=== PATIENT | male | born 1945 | race Caucasian/White ===

== ENCOUNTER → 2016-07-31 | Outpatient (CLI) | payer MEDICARE, OTHER ==
[~2016-07-31] MED LIST: ACET500T94 PO; ALB0.5V INH; ALBU0.63 IH; ALBU90AE IH; ALIR75PE SQ; ALPR.25T PO; ALPR0.254 PO; AMMO1SOL2 MC; ASPI-999 PO; BUDE6HFA IH; CETI10CA PO; CETI10TA17 PO; CHOL1CRY2 PO; CHOL4PAC2 PO; CLOP75TA69 PO; CYCL10TA9 PO; DIPH25CA6 PO; EZET10TA5 PO; FURO-125 PO; ISOS30TA3 PO; LEVA0.6320 IH; LISI-556 PO; LISI10TA PO; LISI10TA2 PO; LRT10T PO; METO100T2 PO; METO25TA2 PO; MMT17NA NS; MONT10TA24 PO; MTP50T PO; NAPR-689 PO; NCT21TD TD; NITR0.4T SL; OMEP20TA2 PO; OMEP20TA7 PO; PRD20T PO; PRD5T PO; PSYL480P PO; ROFL500T4 PO; TICA90TA PO; TIOT18CA IH; TRAM50TA2 PO; UBID30CA19 PO
--- OUTSIDE RECORDS SUMMARY | 2016-07-31 08:21 | XMS REPORT | Continuity of Care Document ---
Author Author [facility] Organization [facility] Address Unknown Phone Unavailable Care Team Providers Care Cmo Name Role Phone CAILIN EDWARDS MD PCP Insurance Providers Payer Name Policy Number Subscriber Name Relationship Wps Medicare [id number] Ximena Parra 18 Self / Same As Patient Comm Crossover Enter Ins Name [id number] Ximena Parra 18 Self / Same As Patient Advance Directives Directive Response Recorded Date/Time Advance Directives No 05/30/16 7:03am Health Care Power of Chemical Processing Supervisor No 05/30/16 7:03am Organ Donor No 05/30/16 7:03am Resuscitation Status Full Code 05/30/16 7:03am Problems Active Problems Medical Problem Onset Date Status COPD with acute exacerbation Unknown Acute Chest pain Unknown Acute Chest pain Unknown Acute Medications Current Home Medications Medication Dose Units Route Directions Days/Qty Instructions Start Date Lisinopril 10 Mg 2.5 Mg Oral Daily 08/22/12 Omeprazole 20 Mg 20 Mg Oral Twice A Day 08/22/12 Psyllium Husk 480 Gm 17.5 Gm Oral Bedtime 08/22/12 Tramadol Hcl 50 Mg 50 Mg Oral Three Times A Day as needed for Pain NEEDED FOR PAIN 08/22/12 Albuterol 2.5 Mg/0.5 Ml 2.5 Mg Inhalation Every 4HRS as needed for Shortness Of Breath NEEDED FOR SHORTNESS OF BREATH 08/27/12 Budesonide/Formoterol Fumarate 10.2 Gm 2 Puff Inhalation Twice A Day 08/27/12 Acetaminophen 500 Mg 1,000 Mg Oral Twice Daily And Prn as needed for Pain NEEDED FOR PAIN 02/24/14 Naproxen 500 Mg 500 Mg Oral Twice A Day 02/24/14 Metoprolol Tartrate (Lopressor) 100 Mg 50 Mg Oral Twice A Day TAKES 1/ 2 (100MG) TABLET 02/24/14 Alprazolam 0.25 Mg 0.25 Mg Oral Every 8HRS as needed for Anxiety 30 Aspirin 81 Mg 81 Mg Oral Daily 12/18/15 Diphenhydramine Hcl 25 Mg 25 Mg Oral Daily as needed for Itching 11/27 Montelukast Sodium 10 Mg 10 Mg Oral Bedtime 05/30/16 Cetirizine Hcl 10 Mg 10 Mg Oral Daily 05/30/16 Alirocumab 75 Mg/1 Ml 75 Mg Sub-Q Bi Weekly 05/30/16 Ticagrelor 90 Mg 90 Mg Oral Twice A Day 60 05/31/16 Isosorbide Mononitrate (Imdur) 30 Mg 30 Mg Oral Daily 30 05/31/16 Nitroglycerin 0.4 Mg 0.4 Mg Sublingual As Needed 30 05/31/16 Past Home Medications Medication Directions Ordered Status Ammonium Lactate 1 Ml Solution, 1 Ml Miscell 08/22/12 Discontinued Ezetimibe 10 Mg Tablet, 10 Mg Oral Bedtime 08/22/12 Discontinued Metoprolol Tartrate (Lopressor) 25 Mg Tablet, 1 Tab Oral Twice A Day Discontinued Tiotropium [place] 1 Inh Aerp, 0 Inhalation Daily 08/27/12 Discontinued Prednisone 5 Mg Tab, 4 Tab Oral Daily 08/27/12 Discontinued Nicotine 21 Mg Box, 21 Mg Transderm Daily 08/27/12 Discontinued Metoprolol Tartrate (Lopressor) 50 Mg Tablet, 25 Mg Oral Twice A Day Discontinued Loratadine 10 Mg Tab, 10 Mg Oral Daily as needed for Allergy 02/24/14 Discontinued Prednisone 20 Mg Tab, 20 Mg Oral Daily 02/26/14 Discontinued Cholestyramine (With Sugar) 4 Gm Powd.pack, 4 Gm Oral Daily 12/18/15 Discontinued Cholecalciferol (Vitamin D3) 1 Gm Crystals, 1 Gm Oral Daily 12/18/15 Discontinued Ubidecarenone 30 Mg Capsule, 30 Mg Oral Daily 12/18/15 Discontinued Prednisone 20 Mg Tab, 20 Mg Oral Daily 12/18/15 Discontinued Prednisone 20 Mg Tab, 40 Mg Oral Daily 12/18/15 Discontinued Social History Social History Problem Response Recorded Date/Time Alcohol Use Denies Use 12/17/2015 10:35pm Recreational Drug Use No 12/17/2015 10:35pm Recent Foreign Travel No 02/23/2014 10:10pm Recent Infectious Disease Exposure No 02/23/2014 10:10pm Hospitalization with Isolation Denies 02/26/2014 1:13pm Sexually Transmitted Disease No 12/17/2015 10:35pm HIV/AIDS No 12/17/2015 10:35pm Smoking Status Former Smoker 05/30/2016 7:03am Sexually Transmitted Disease No 12/17/2015 10:35pm Hospitalization with Isolation Denies 02/26/2014 1:13pm Query Response Start Date Stop Date Smoking Status Former Smoker Hospital Discharge Instructions Patient Instructions Physician Instructions Follow Up/Plan Appointment with Dr. Romano's office in 2-4 weeks CARDIAC CATH DISCHARGE INSTRUCTIONS *Hold Metformin for 48 hours post heart cath. ACTIVITY * Go Home directly and rest. * Limit activity of the leg (or wrist if it was used) for 7 days including aerobics, swimming, jogging, bicycling, etc. * Restrict stair-climbing for 7 days if possible, if not, climb up with your non-cath leg, then bring together on the same step. * Avoid lifting, pushing, pulling or excessive movement of the affected extremity for 7 days. * Customary sexual activity may be resumed after 2 days-use caution not to use a position that strains or causes pain to the affected extremity. * No driving for 24 hours. * NO SMOKING. * Avoid straining for bowel movements for 7 days. * Gentle walking on level ground is allowed. * Returning to work will depend on the type of procedure and the results. Your doctor will discuss this with you. CALL YOUR DOCTOR FOR ANY OF THE FOLLOWING: *If bleeding from the puncture site occurs- Apply gentle pressure to site with clean cloth and call your doctor or EMS. * If a knot or lump forms under the skin, increases in size, or causes pain. * If bruising appears to be worsening or moving further down your leg instead of disappearing. * Temperature above 101 F. CARE OF YOUR GROIN INCISION; * Bruising or purple discoloration of the skin near the puncture site is common. * You may shower only, no bathtub bathing for 5 days. Be careful to avoid slipping as your leg may feel stiff. * If a closure device was used on your femoral artery, please see the attached guide regarding care of the device and your leg. * REMOVE the dressing from your groin the next day after your procedure in the shower. CARE OF YOUR WRIST INCISION; * Bruising or purple discoloration of the skin near the puncture site is common. * You may shower. * DO NOT submerge wrist. * Remove dressing in 24 hours. Plan of Care Discharge Date 05/31/16 9:36am Instructions/Education Provided CARDIAC CATH DISCHARGE INSTRUC Prescriptions See Medication Section Functional Status Query Response Date Recorded Patient Orientation Person Place Time Situation May 31, 2016 11:02am Comprehension Ability Understands Concepts May 31, 2016 8:00am Allergies, Adverse Reactions, Alerts Allergen Type Severity Reaction Status Last Updated hydrocodone ([id number]) Adverse Reaction Unknown [place]IGHT[place]ES Active Immunizations No immunization records. Vital Signs Acute Vital Signs Vital Response Date/Time Temperature (Fahrenheit) 97.1 degrees F (97.6 - 99.5) 05/31/2016 9:38am Temperature (Calculated Celsius) 36.16843 degrees C (36.4 - 37.5) 05/31/2016 8:10am Temperature Source Tympanic 05/31/2016 9:38am Pulse Rate (adult) 78 bpm (60 - 90) 05/31/2016 9:38am Respiratory Rate 18 bpm (12 - 24) 05/31/2016 9:38am O2 Sat by Pulse Oximetry 93 % (88 - 100) 05/31/2016 9:38am Blood Pressure 146/68 mm Hg 05/31/2016 9:38am Blood Pressure Mean 94 mm Hg 05/31/2016 8:10am Pain Numeric Pain Scale 0-No Pain 05/31/2016 9:38am Height (Feet) 6 feet 05/30/2016 7:03am Height (Inches) 0.00 inches 05/30/2016 7:03am Height (Calculated Centimeters) 182.167520 cm 05/30/2016 7:03am Weight (Pounds) 238 pounds 05/30/2016 7:03am Weight (Ounces) 0.0 oz 05/30/2016 7:03am Weight (Calculated Grams) 355414.99 gm 05/30/2016 7:03am Weight (Calculated Kilograms) 107.596822 kilograms 05/30/2016 7:03am Calculated BMI 32.3 05/30/2016 7:03am Capillary Refill Capillary Refill Less Than 3 Seconds 05/30/2016 7:10pm Capillary Refill Capillary Refill Less Than 3 Seconds 05/30/2016 7:10pm Results Pending Laboratory Results Test Name Collection Date/Time Procedures Procedure Status Date Provider(s) Tracing only of electrocardiogram Completed 05/30/16 MOIZ ROMANO MD Tracing only of electrocardiogram Completed 05/30/16 MOIZ ROMANO MD Encounters Encounter Location Arrival/Admit Date Discharge/Depart Date Attending Provider Departed [facility] 05/30/16 6:43am 9:36am MOIZ ROMANO MD Registered Clinic [facility] 05/24/16 12:23pm ANDREAS TREADWELL APRN Registered Clinic [facility] 05/23/16 3:25pm ANDREAS TREADWELL APRN Registered Clinic [facility] 05/23/16 8:05am MOIZ ROMANO MD Registered Clinic [facility] 05/09/16 4:52pm CAILIN EDWARDS MD
[2016-07-31 08:56] LABS: ALBUMIN 4.2 G/DL (3.2-4.5); BILIRUBIN,DIRECT 0.1 MG/DL (0.0-0.3); BILIRUBIN,INDIRECT 0.2 MG/DL; BILIRUBIN,TOTAL 0.3 MG/DL (0.1-1.0)
--- NOTE | 2016-07-31 09:37 | Diagnostic Imaging Report ---
Ultrasound of the liver. INDICATION: Right upper quadrant pain. FINDINGS: The pancreas is largely obscured. There is a hypoechoic mass with internal vascularity seen in the central aspect of the liver anteriorly measuring 4.7 x 3.6 x 4.7 cm. There is background echogenicity of the liver parenchyma which may relate to fatty infiltration. No other masses are identified. The gallbladder demonstrates no stones or wall thickening. No pericholecystic fluid. The CBD is obscured by bowel gas. There is no obvious intrahepatic biliary dilatation. The right kidney is 11.3 cm in length with no hydronephrosis or focal lesion. No fluid collection in the upper right abdomen. IMPRESSION: Suspicious 4.7-cm solid mass in the liver. Particularly in the presence of history of hepatitis or cirrhosis, this would be suspicious for hepatocellular carcinoma. Better evaluation with CT scan or MRI of the abdomen, liver mass protocol, is recommended. Report was stat faxed to office of Dr. Lane @ 9:31 AM/zara. Dictated by: Dictated on workstation # [id number]
== END ==
LOC: RAD 08:16
PROVIDERS: ATTEND Internal Medicine Critical Care Medicine
DX: E78.2 Mixed hyperlipidemia (principal); R16.0 Hepatomegaly, not elsewhere classified
CPT/HCPCS: 36415; 76705; 80061; 80076

== ENCOUNTER 2016-08-19 18:05 | Inpatient (IN) | payer MEDICARE, OTHER ==
[~2016-08-19] VITALS: Ht 182.9 cm; Wt 106.8 kg
[~2016-08-19 18:05] MED LIST changes: -ALBU0.63 IH; -ALBU90AE IH; -ALPR0.254 PO; -CETI10TA17 PO; -CLOP75TA69 PO; -CYCL10TA9 PO; -FURO-125 PO; -LEVA0.6320 IH; -LISI-556 PO; -LISI10TA2 PO; -MMT17NA NS; -OMEP20TA7 PO; -ROFL500T4 PO
--- OUTSIDE RECORDS SUMMARY | 2016-08-19 18:13 | XMS REPORT | Continuity of Care Document ---
Author Author [facility] Organization [facility] Address Unknown Phone Unavailable Care Team Providers Care Supervisor [employer] Name Role Phone CAILIN EDWARDS MD PCP Insurance Providers Payer Name Policy Number Subscriber Name Relationship Wps Medicare [id number] Ximena Parra 18 Self / Same As Patient Comm Crossover Enter Ins Name [id number] Ximena Parra 17 Self / Same As Patient Advance Directives Directive Response Recorded Date/Time Advance Directives No 05/30/16 7:03am Health Care Power of Inventory Controller No 05/30/16 7:03am Organ Donor No 05/30/16 [...] Tab Oral Twice A Day Discontinued Tiotropium [place] 1 Inh Aerp, 0 Inhalation Daily 08/27/12 [...] Type Severity Reaction Status Last Updated hydrocodone ([id number]) Adverse Reaction Unknown [place] Active Immunizations No immunization records. Vital Signs Acute Vital Signs Vital Response Date/Time Temperature (Fahrenheit) 97.1 degrees F (97.6 - 99.5) 05/31/2016 9:38am Temperature (Calculated Celsius) 36.65423 degrees C (36.4 - 37.5) 05/31/2016 8:10am [...] 0.00 inches 05/30/2016 7:03am Height (Calculated Centimeters) 182.207504 cm 05/30/2016 7:03am Weight (Pounds) 238 pounds 05/30/2016 7:03am Weight (Ounces) 0.0 oz 05/30/2016 7:03am Weight (Calculated Grams) 594332.99 gm 05/30/2016 7:03am Weight (Calculated Kilograms) 107.436894 kilograms 05/30/2016 7:03am Calculated BMI 32.3 05/30/2016 [...] Attending Provider Departed [facility] 05/30/16 6:43am 9:36am MOIZ ROMANO MD Registered Clinic [facility] 05/24/16 12:23pm ANDREAS TREADWELL APRN Registered Clinic [facility] 05/23/16 3:25pm ANDREAS TREADWELL APRN Registered Clinic [facility] 05/23/16 8:05am MOIZ ROMANO MD Registered Clinic [facility] 05/09/16 4:52pm CAILIN EDWARDS MD
[2016-08-19 18:52] LABS: BASOPHILS % (AUTO) 0 % (0-10); EOSINOPHILS % (AUTO) 0 % (0-10); LYMPHOCYTES # (AUTO) 1.7 X 10^3 (1.0-4.0); LYMPHOCYTES % (AUTO) 18 % (12-44); MEAN CORPUSCULAR HEMOGLOBIN 31 PG (25-34); MEAN CORPUSCULAR HGB CONC 34 G/DL (32-36); MEAN CORPUSCULAR VOLUME 91 FL (80-99); MEAN PLATELET VOLUME 9.8 FL (7.4-10.4); MONOCYTES # (AUTO) 0.6 X 10^3 (0.0-1.0); MONOCYTES % (AUTO) 6 % (0-12); NEUTROPHILS # (AUTO) 7.4 X 10^3 (1.8-7.8); NEUTROPHILS % (AUTO) 76 % (42-75); PLATELET COUNT 242 10^3/uL (130-400); RED BLOOD COUNT 4.98 10^6/uL (4.35-5.85); RED CELL DISTRIBUTION WIDTH 13.7 % (10.0-14.5); WHITE BLOOD COUNT 9.8 10^3/uL (4.3-11.0)
[2016-08-19] MEDS ORDERED: methylPREDNISolone 125 MG (Solu-MEDROL) VIAL IVP ONE (19:00)
--- NOTE | 2016-08-19 19:04 | Diagnostic Imaging Report ---
INDICATION: COPD, shortness of air for 2 months COMPARISON STUDY: Chest from May the . FINDINGS: Frontal and lateral views of the chest demonstrate stable COPD changes. Previous sternotomy changes are present. The heart size and vascularity are normal. There are no pleural effusions. IMPRESSION: Stable COPD. Dictated by: Dictated on workstation # [id number]
[2016-08-19 19:14] LABS: ALANINE AMINOTRANSFERASE 28 U/L (0-55); ALBUMIN 4.1 G/DL (3.2-4.5); ANION GAP 11 MMOL/L (5-14); ASPARTATE AMINO TRANSFERASE 18 U/L (5-34); BILIRUBIN,TOTAL 0.3 MG/DL (0.1-1.0); BLOOD UREA NITROGEN 16 MG/DL (7-18); BUN/CREATININE RATIO 16; CALCIUM 9.4 MG/DL (8.5-10.1); CARBON DIOXIDE 19 MMOL/L (21-32); CHLORIDE 107 MMOL/L (98-107); CREATININE SERUM 0.97 MG/DL (0.60-1.30); GFR ESTIMATED > 60; GLUCOSE 148 MG/DL (70-105); POTASSIUM 4.3 MMOL/L (3.6-5.0); SODIUM 137 MMOL/L (135-145)
[2016-08-19 19:20] LABS: TROPONIN I < 0.30 NG/ML (<0.30)
--- NOTE | 2016-08-19 19:23 | ED Respiratory ---
General Chief Complaint: Respiratory Problems Stated Complaint: SOA Source: patient History of Present Illness Time seen by provider: 18:20 Initial Comments PT ARRIVES VIA POV STATES HE 'HASN'T FELT GOOD FOR A MONTH" BUT IS NOT SPECIFIC ON HOW HE HAS FELT BAD FOR THE LAST FEW DAYS, HE HAS HAD A NON-PRODUCTIVE COUGH, SWEATS/CHILLS, HEADACHE, BODY ACHES, SHORTNESS OF BREATH NO CHEST PAIN, BUT HAS HAD MID/UPPER BACK PAIN AND TIGHTNESS NO INCREASE IN PAIN WITH ACTIVITY OR BREATHING NO SWELLING ANYWHERE STATES HE HAS COPD BUT HAS NOT USED NEBULIZER IN OVER 2 WEEKS--STATES "IT NEVER HELPS AND IT JUST MAKES ME SHAKEY" ALSO HAS HISTORY OF CAD/DC WITH 3 VESSEL CABG IN 1996, AND STENT PLACED "A MONTH AGO" BY DR. MORALES--ACTUALLY 05/30/16, AND HAD PREVIOUS STENT PLACED WELL SEEN BY DR. EDWARDS A COUPLE OF WEEKS AGO--IS UNCLEAR IF VISIT WAS FOR THESE SYMPTOMS, BUT STATES HE WAS GIVEN RX FOR PREDNISONE, BUT PT ONLY TOOK 1 PILL WAS MAGALY AGAIN Saturday08/16/16 FOR ROUTINE EXAM--STATES HE DISCUSSED THIS, BUT NO TESTS OR RX GIVEN. NO SICK CONTACTS PCP: DR. EDWARDS PHOTO FINISHER: DR. MORALES PULMONOLOGY: DR. GALVIN Allergies and Home Medications Allergies Coded Allergies: hydrocodone (Unverified Adverse Reaction, Unknown, NIGHTMARES, 12/17/15) Home Medications Acetaminophen 500 Mg Tablet 1,000 MG PO BID PRN PRN PRN PAIN (Reported) NEEDED FOR PAIN Albuterol Sulfate 0.63 Mg/3 Ml Vial.neb 0.63 MG IH (Reported) Albuterol Sulfate 90 Mcg Aer.pow.ba 1-2 PUFF IH (Reported) Alirocumab 75 Mg/1 Ml Pen.injctr 75 MG SQ BI WEEKLY (Reported) Alprazolam 0.25 Mg Tab #30 0.25 MG PO Q8H PRN PRN anxiety Prescribed by: CAILIN EDWARDS on 02/26/14 0804 Aspirin 81 Mg Tab.chew 81 MG PO DAILY (Reported) Budesonide/Formoterol Fumarate 10.2 Gm Hfa.aer.ad 2 PUFF IH BID (Reported) Clopidogrel Bisulfate 75 Mg Tablet 75 MG PO DAILY (Reported) Cyclobenzaprine HCl 10 Mg Tablet 10 MG PO TID (Reported) Furosemide 20 Mg Tablet 20 MG PO PRN EDEMA (Reported) Isosorbide Mononitrate 30 Mg Tab.er.24h #30 30 MG PO DAILY Prescribed by: MOIZ MORALES on 05/31/16 0836 Levalbuterol HCl 0.63 Mg/3 Ml Vial.neb 0.63 MG IH (Reported) Lisinopril 10 Mg Tablet 5 MG PO DAILY (Reported) Metoprolol Tartrate 100 Mg Tablet 50 MG PO BID (Reported) TAKES 1/2 (100MG) TABLET Mometasone Furoate 17 Gm Naspr 50 MCG NS (Reported) Montelukast Sodium 10 Mg Tablet 10 MG PO HS (Reported) Naproxen 500 Mg Tablet 500 MG PO BID (Reported) Nitroglycerin 0.4 Mg Tab.subl #30 0.4 MG SL PRN Prescribed by: MOIZ MORALES on 05/31/16 0836 Omeprazole 20 Mg Tablet.dr 40 MG PO BID (Reported) Roflumilast 500 Mcg Tablet 500 MCG PO DAILY (Reported) Tramadol Hcl 50 Mg Tablet 50 MG PO TID PRN PRN PAIN (Reported) NEEDED FOR PAIN Constitutional: see HPI chills fever malaise weakness EENTM: no symptoms reported Respiratory: see HPI cough dyspnea on exertion short of breath Cardiovascular: No chest pain, No edema, No palpitations, No syncope, vascular heart diseas Gastrointestinal: no symptoms reportedNo abdominal pain, No diarrhea, No nausea, No vomiting Genitourinary: no symptoms reported Musculoskeletal: see HPI back pain other (BODY ACHES) Skin: no symptoms reported Psychiatric/Neurological: See HPI HeadacheDenies Numbness, Denies Paresthesia , Denies Seizure, Denies Tingling, Denies Tremors, Denies Weakness Hematologic/Lymphatic: No Symptoms Reported Immunological/Allergic: no symptoms reported Past [id number]-Fkabkz-Jrnppb Hx Patient Social History Alcohol Use: Denies Use Recreational Drug Use: No Smoking Status: Former Smoker (1 PPD, QUIT 12/2015) Recent Hopitalizations: No Immunizations Up To Date Tetanus Booster (TDap): Less than 5yrs Date of Pneumonia Vaccine: Apr 14, 2014 Date of Influenza Vaccine: Mar 20, 2016 Seasonal Allergies Seasonal Allergies: No Surgeries HX Surgeries: Yes (RIGHT ANKLE FX/ ORIF; CARDIAC CATH-STENT X 2--LAST ONE 2015 ; 3 VESSEL CABG 1997 PER PT ON 08/19/16 ( OLD RECORDS REPORT 1991) ; ZENKER 'S DIVERTICULUM REMOVED 11/2015) Surgeries: Abdominal, Cardiac, CABG, Coronary Stent, Orthopedic Respiratory Hx Respiratory Disorders: Yes Respiratory Disorders: COPD Cardiovascular Hx Cardiac Disorders: Yes (DC 1996--3 VESSEL CABG; STENTS X 2) Cardiac Disorders: Coronary Artery Disease, Heart Attack, High Cholesterol, Hypertension Neurological Hx Neurological Disorders: No Reproductive System Hx Reproductive Disorders: No Sexually Transmitted Disease: No HIV/AIDS: No Genitourinary Hx Genitourinary Disorders: No Gastrointestinal Hx Gastrointestinal Disorders: Yes (ZENKER'S DIVERTICULUM REMOVED 11/2015) Gastrointestinal Disorders: Diverticulosis Musculoskeletal Hx Musculoskeletal Disorders: Yes (RIGHT ANKLE FX/ORIF) Endocrine Hx Endocrine Disorders: No HEENT HX ENT Disorders: No HEENT Disorders: Cataract Loss of Vision: Denies Hearing Impairment: Denies Cancer Hx Cancer: No Cancer: Skin Psychosocial Hx Psychiatric Problems: No Integumentary HX Skin/Integumentary Disorder: No Blood Transfusions Hx Blood Disorders: No Adverse Reaction to a Blood Tr: No Family Medical History Family Medial History: Diabetes mellitus 19 MOTHER FH: heart disease 19 FATHER 19 MOTHER G8 SISTER FH: inflammatory bowel disease G8 SISTER Physical Exam Vital Signs Vital Sign - Last 12Hours 08/19/16 19:25 O2 Flow Rate 2 Capillary Refill : General Appearance: WD/WN other (LOOKS UNCOMFORTABLE) HEENT: PERRL/EOMI normal ENT inspection TMs normal pharynx normal Neck: non-tender full range of motion supple normal inspectionNo carotid bruit Respiratory: chest non-tender no respiratory distress no accessory muscle use decreased breath sounds (IN ALL LUNG LONG) Cardiovascular: normal peripheral pulses regular rate, rhythm no edema no JVD no murmur Gastrointestinal: normal bowel sounds non tender soft no organomegaly Extremities: normal range of motion non-tender normal inspection no pedal edema no calf tenderness normal capillary refill Neurologic/Psychiatric: director of planning II-XII nml as tested no motor/sensory deficits alert oriented x 3 Skin: normal color warm/dry Progress/Results/Core Measures Results/Orders Lab Results Laboratory Tests Test 08/19/16 18:35 08/19/16 20:27 Range/Units Alanine Aminotransferase (ALT/SGPT) 28 0-55 U/L Albumin 4.1 3.2-4.5 G/DL Alkaline Phosphatase 79 40-136 U/L Anion Gap 11 5-14 MMOL/L Aspartate Amino Transf (AST/SGOT) 18 5-34 U/L B-Type Natriuretic Peptide < 10.0 <100.0 PG/ML BUN/Creatinine Ratio 16 Basophils # (Auto) 0.0 0.0-0.1 10^3/uL Basophils (%) (Auto) 0 0-10 % Blood Urea Nitrogen 16 7-18 MG/DL Calcium Level 9.4 8.5-10.1 MG/DL Carbon Dioxide Level 19 L 21-32 MMOL/L Chloride Level 107 98-107 MMOL/L Creatinine 0.97 0.60-1.30 MG/DL Eosinophils # (Auto) 0.0 0.0-0.3 10^3/uL Eosinophils (%) (Auto) 0 0-10 % Estimat Glomerular Filtration Rate > 60 Glucose Level 148 H 70-105 MG/DL Hematocrit 45 40-54 % Hemoglobin 15.3 13.3-17.7 G/DL Lymphocytes # (Auto) 1.7 1.0-4.0 X 10^3 Lymphocytes (%) (Auto) 18 12-44 % Mean Corpuscular Hemoglobin 31 25-34 PG Mean Corpuscular Hemoglobin Concent 34 32-36 G/DL Mean Corpuscular Volume 91 80-99 FL Mean Platelet Volume 9.8 7.4-10.4 FL Monocytes # (Auto) 0.6 0.0-1.0 X 10^3 Monocytes (%) (Auto) 6 0-12 % Neutrophils # (Auto) 7.4 1.8-7.8 X 10^3 Neutrophils (%) (Auto) 76 H 42-75 % Platelet Count 242 130-400 10^3/uL Potassium Level 4.3 3.6-5.0 MMOL/L Red Blood Count 4.98 4.35-5.85 10^6/uL Red Cell Distribution Width 13.7 10.0-14.5 % Sodium Level 137 135-145 MMOL/L Total Bilirubin 0.3 0.1-1.0 MG/DL Total Protein 7.0 6.4-8.2 G/DL Troponin I < 0.30 < 0.30 <0.30 NG/ML White Blood Count 9.8 4.3-11.0 10^3/uL Micro Results Microbiology 08/19/16 Influenza Types A,B Antigen (JASON) - Final, Complete My Orders Orders-TOM,AMANDA K DO Saline Lock/Iv-Start (08/19/16 18:26) Ekg Tracing (08/19/16 18:26) O2 (08/19/16 18:) Monitor-Rhythm Ecg Trace Only (08/19/16 18:26) BNP (08/19/16 18:26) Cbc With Automated Diff (08/19/16 18:) Comprehensive Metabolic Panel (08/19/16 18:) Troponin I (08/19/16 18:) Blood Culture (08/19/16 18:) Influenza A And B Antigens (08/19/16 18:26) Chest Pa/Lat (2 View) (08/19/16 18:26) Methylprednisolone Sod Succ (Solu-Medrol (08/19/16 19:00) Albuterol/Ipra Inhalation Soln (Duoneb I (08/19/16 19:30) Dexamethasone Injection (Decadron Inject (08/19/16 19:30) Rt Request For Service (08/19/16 19:22) Svn Sm Volume Nebulizer Rt-Rfs (08/19/16 19:22) Ct Angio Chest W (08/19/16 19:24) Iohexol Injection (Omnipaque 350 Mg/Ml 1 (08/19/16 19:45) Ns (Ivpb) (Sodium Chloride 0.9% Ivpb Bag (08/19/16 19:45) Lorazepam Injection (Ativan Injection) (08/19/16 20:30) Ekg Tracing (08/19/16 20:26) Troponin I (08/19/16 20:26) Morphine Injection (Morphine Injection (08/19/16 20:26) Morphine Injection (Morphine Injection (08/19/16 20:26) Lorazepam Injection (Ativan Injection) (08/19/16 20:26) Furosemide Injection (Lasix Injection) (08/19/16 20:45) Enoxaparin Injection (Lovenox Injection) (08/19/16 20:45) Metoprolol Succinate (Xl) Tab (Toprol Xl (08/19/16 20:45) Aspirin Chewable Tablet (Baby Aspirin Ch (08/19/16 20:45) Medications Given in ED Current Medications Medications Dose Ordered Sig/Laney Route Start Time Stop Time Status Last Admin Dose Admin Albuterol/ Ipratropium 3 ml ONCE ONCE INH 08/19/16 19:30 08/19/16 19:31 DC 08/19/16 19:32 3 ML Aspirin 324 mg ONCE ONCE PO 08/19/16 20:45 08/19/16 20:46 DC 08/19/16 20:50 324 MG Dexamethasone Sodium Phosphate 20 mg ONCE ONCE IH 08/19/16 19:30 08/19/16 19:31 DC 08/19/16 19:32 20 MG Enoxaparin Sodium 120 mg ONCE ONCE SC 08/19/16 20:45 08/19/16 20:46 DC 08/19/16 20:50 120 MG Furosemide 80 mg ONCE ONCE IVP 08/19/16 20:45 08/19/16 20:46 DC 08/19/16 20:50 80 MG Iohexol 150 ml ONCE ONCE IV 08/19/16 19:45 08/19/16 22:53 DC 08/19/16 20:15 145 ML Lorazepam 2 mg ONCE ONCE IVP 08/19/16 20:30 08/19/16 20:31 DC 08/19/16 20:29 2 MG Methylprednisolone Sodium Succinate 125 mg ONCE ONCE IVP 08/19/16 19:00 08/19/16 19:01 DC 08/19/16 19:05 125 MG Metoprolol Succinate 100 mg ONCE ONCE PO 08/19/16 20:45 08/19/16 20:46 DC 08/19/16 20:53 100 MG Sodium Chloride 100 ml ONCE ONCE IV 08/19/16 19:45 08/19/16 22:53 DC 08/19/16 20:15 80 ML Vital Signs/I&O Vital Sign - Last 12Hours 08/19/16 08/19/16 08/19/16 08/19/16 18:06 18:06 19:25 19:32 Temp 98.0 Pulse 97 87 Resp 20 26 B/P 119/70 152/81 Pulse Ox 94 96 96 96 O2 Delivery Room Air Room Air Nasal Cannula O2 Flow Rate 2 2 08/19/16 20:30 Temp 98.0 Progress Note : Progress Note O2 SATS 92-93% ON ROOM AIR--PLACED ON O2 WITH IMPROVEMENT OF SATS UP TO 98% AND PT STATES HE FEELS LESS SHORT OF BREATH 2020--ON RETURN FROM CT, PT NOW C/O SEVERE MID CHEST PAIN--BEGAN WHILE IN CT ( HAS HAD IV DYE MULTIPLE TIMES AND NOT HAD ANY PROBLEMS ) ALSO C/O WORSENED SHORTNESS OF BREATH PT IS DYSPNEIC, ANXIOUS, CLUTCHING HIS CHEST HEART--TACHYCARDIA IN 120'S, BP ELEVATED TO 211 SYSTOLIC LUNGS -DIMINISHED IN ALL LUNG LONG REPEAT EKG NOW SHOWS ST DEPRESSION IN ANTERIOR AND LATERAL LEADS REPEAT TROPONIN DRAWN PT GIVEN ATIVAN AND MORPHINE WITH RELIEF OF SYMPTOMS AND IMPROVEMENT IN VITALS NO FURTHER DETERIORATION IN PT'S CONDITION DURING ER STAY ECG Initial ECG Impression Time: 18:21 Initial ECG Rate: 81 Initial ECG Rhythm: Normal Sinus (RBB/LPFB) Initial ECG Comparisson: Unchanged EKG : EKG Time: 20:25 Rate: 116 Rhythm: S.Tach (WITH ST DEPRESSION ANTERIOR AND LATERALLY) Diagnostic Imaging Comments CXR--STABLE COPD, NO ACUTE PROCESS, PER RADIOLOGIST REPORT @ 1923 Reviewed: Reviewed by Me Departure Communication Progress Notes --PAGED/SPOKE WITH DR. LUX, ORDERS FOR LASIX, LOVENOX, TOPROL NOTED. HE ACCEPTS PT FOR ADMIT 2049--SPOKE WITH DR. CASAREZ, HOSPITALIST FOR MEDICAL CONSULT. Impression Impression: Primary Impression: Chest pain Additional Impressions: Acute electrocardiogram changes HTN (hypertension) Sinus tachycardia COPD Disposition: ADMITTED INPATIENT Condition: Improved Decision to Admit Reason: Admit from ER (General) Decision to Admit/Date: Aug 19, 2016 Time/Decision to Admit Time: 20:35 Departure-Patient Inst. Referrals: CAILIN EDWARDS MD (PCP/Family) Primary Care Physician AMANDA SANTOS DO Aug 19, 2016 19:23
[2016-08-19 19:25] VITALS: BP 152/81
[2016-08-19] MEDS ORDERED: DEXAMETHASONE 4 MG/ML SDV (DECADRON) IH ONE (19:30)
[2016-08-19] MEDS ORDERED: RT-ALBUTEROL/IPRATROPIUM 3 ML (DUONEB) VIAL INH ONE (19:30)
[2016-08-19] MEDS ORDERED: NS 100 ML (IVPB) BAG IV ONE (19:45)
[2016-08-19] MEDS ORDERED: IOHEXOL 350 MG/ML 150 ML (OMNIPAQUE 350) VIAL IV ONE (19:45)
[2016-08-19] MEDS ORDERED: morphine INJ 10 MG/ML 1ML (SYR OR VIAL) ONE (20:26)
[2016-08-19] MEDS ORDERED: morphine INJ 10 MG/ML 1ML (SYR OR VIAL) IVP STA (20:26)
[2016-08-19] MEDS ORDERED: LORazepam INJ 2 MG/ML (ATIVAN) VIAL ONE (20:26)
[2016-08-19] MEDS ORDERED: LORazepam INJ 2 MG/ML (ATIVAN) VIAL IVP ONE (20:30)
--- NOTE | 2016-08-19 20:38 | Diagnostic Imaging Report ---
INDICATION: Shortness of air, congestion and headaches. CONTRAST: 145 mL of Omnipaque 350 was given intravenously. COMPARISON STUDY: Noncontrast CT scan of the chest from 05/24/16. FINDINGS: Emphysematous changes are again seen in the chest. There are no focal infiltrates. The heart size is normal. Arteriosclerosis is present with calcification of the coronary arteries. No pleural or pericardial effusions are seen. There is a mass in the right lobe of the liver. This has contrast enhancement and a central scar. This is most likely benign. An MRI scan with and without contrast would be helpful for further evaluation. Fatty infiltration of the liver is present. IMPRESSION: 1. Stable COPD. 2. There is a mass in the liver, most likely benign. Recommend an MRI of the abdomen with and without contrast. 3. No pulmonary emboli, aortic dissection or aneurysm is present. Coronary artery calcifications are present. Dictated by: Dictated on workstation # [id number]
[2016-08-19] MEDS ORDERED: ENOXAPARIN 60 MG/0.6 ML (LOVENOX) SYR SC ONE (20:45)
[2016-08-19] MEDS ORDERED: FUROSEMIDE 40 MG/4 ML INJ (LASIX) IVP ONE (20:45)
[2016-08-19] MEDS ORDERED: meTOprolol SUCCINATE 100 MG (TOPROL XL) TAB PO ONE (20:45)
[2016-08-19] MEDS ORDERED: ASPIRIN 81 MG CHEW (CHILDREN'S ASA) PO ONE (20:45)
[2016-08-19 22:45] VITALS: BP 119/73
[2016-08-19 23:00] VITALS: BP 122/69
[2016-08-19] MEDS ORDERED: CATHETER FLUSH 10 ML SYR IV PRN (23:00)
[2016-08-19] MEDS ORDERED: NITROGLYCERIN 2% OINT 1 GM UNIT DOSE PACKET TOP PRN (23:00)
[2016-08-19] MEDS ORDERED: NITROGLYCERIN SUBLINGUAL 0.4 MG TAB (NITROSTAT) SL PRN (23:00)
[2016-08-19] MEDS ORDERED: morphine INJ 10 MG/ML 1ML (SYR OR VIAL) IV PRN (23:00)
[2016-08-19 23:15] VITALS: BP 116/65
[2016-08-19 23:30] VITALS: BP 104/58
[2016-08-19 23:53] LABS: BILIRUBIN,URINE NEGATIVE (NEGATIVE); KETONES,URINE NEGATIVE (NEGATIVE); LEUKOCYTE ESTERASE ,URINE NEGATIVE (NEGATIVE); NITRITE,URINE NEGATIVE (NEGATIVE); PH,URINE 5 (5-9); PROTEIN,URINE NEGATIVE (NEGATIVE); UROBILINOGEN,URINE NORMAL (NORMAL)
[2016-08-20] VITALS (25 sets, daily range): BP systolic 95–169; BP diastolic 45–98
[2016-08-20 00:03] LABS: HYALINE CASTS, URINE RARE /LPF; SQUAMOUS EPITHELIAL CELL,UR RARE /HPF
[2016-08-20] MEDS ORDERED: LEVA0.6320 IH (01:58)
[2016-08-20] MEDS ORDERED: OMEP20TA7 PO (01:58)
[2016-08-20] MEDS ORDERED: CYCL10TA9 PO (01:58)
[2016-08-20] MEDS ORDERED: MMT17NA NS (01:58)
[2016-08-20] MEDS ORDERED: FURO-125 PO (01:58)
[2016-08-20] MEDS ORDERED: CLOP75TA69 PO (01:58)
[2016-08-20] MEDS ORDERED: ALBU90AE IH (01:58)
[2016-08-20] MEDS ORDERED: LISI10TA2 PO (01:58)
[2016-08-20] MEDS ORDERED: ALBU0.63 IH (01:58)
[2016-08-20] MEDS ORDERED: ROFL500T4 PO (01:58)
[2016-08-20 02:37] LABS: INR 1.2 (0.8-1.4); PROTHROMBIN TIME PATIENT 14.5 SEC (12.2-14.7)
[2016-08-20 02:39] LABS: MYOGLOBIN SERUM 51.7 NG/ML (10.0-92.0); TROPONIN I < 0.30 NG/ML (<0.30)
[2016-08-20 04:25] LABS: BASOPHILS % (AUTO) 0 % (0-10); EOSINOPHILS % (AUTO) 0 % (0-10); LYMPHOCYTES # (AUTO) 1.4 X 10^3 (1.0-4.0); LYMPHOCYTES % (AUTO) 10 % (12-44); MEAN CORPUSCULAR HEMOGLOBIN 31 PG (25-34); MEAN CORPUSCULAR HGB CONC 34 G/DL (32-36); MEAN CORPUSCULAR VOLUME 90 FL (80-99); MEAN PLATELET VOLUME 9.8 FL (7.4-10.4); MONOCYTES # (AUTO) 0.1 X 10^3 (0.0-1.0); MONOCYTES % (AUTO) 1 % (0-12); NEUTROPHILS # (AUTO) 11.5 X 10^3 (1.8-7.8); NEUTROPHILS % (AUTO) 89 % (42-75); PLATELET COUNT 245 10^3/uL (130-400); RED BLOOD COUNT 4.99 10^6/uL (4.35-5.85); RED CELL DISTRIBUTION WIDTH 13.8 % (10.0-14.5)
[2016-08-20 04:41] LABS: ALANINE AMINOTRANSFERASE 26 U/L (0-55); ANION GAP 13 MMOL/L (5-14); ASPARTATE AMINO TRANSFERASE 16 U/L (5-34); BILIRUBIN,TOTAL 0.3 MG/DL (0.1-1.0); BLOOD UREA NITROGEN 18 MG/DL (7-18); BUN/CREATININE RATIO 17; CALCIUM 9.4 MG/DL (8.5-10.1); CARBON DIOXIDE 21 MMOL/L (21-32); CHLORIDE 103 MMOL/L (98-107); CHOLESTEROL 176 MG/DL (< 200); CREATININE SERUM 1.03 MG/DL (0.60-1.30); DIRECT LDL 117 MG/DL (1-129); GFR ESTIMATED > 60; GLUCOSE 147 MG/DL (70-105); MAGNESIUM 2.2 MG/DL (1.8-2.4); PHOSPHORUS 3.6 MG/DL (2.3-4.7); POTASSIUM 4.5 MMOL/L (3.6-5.0); SODIUM 137 MMOL/L (135-145); TRIGLYCERIDES 81 MG/DL (<150); VLDL CHOLESTEROL 16 MG/DL (5-40)
[2016-08-20 05:06] LABS: BAND NEUTROPHILS 2 %; BASOPHILS % (MANUAL) 0 %; EOSINOPHILS % (MANUAL) 0 %; LYMPHOCYTES % (MANUAL) 6 %; NEUTROPHILS % (MANUAL) 80 %; REACTIVE LYMPHOCYTES 10 %
[2016-08-20] MEDS ORDERED: MAGNESIUM 1 GM/100 ML IVPB 100 ML IV SCH (06:00)
[2016-08-20] MEDS ORDERED: KCL 20 MEQ TAB (K-DUR) PO SCH (06:00)
[2016-08-20] MEDS ORDERED: POTASSIUM CL 10MEQ/50ML IVPB 50 ML IV SCH (06:00)
[2016-08-20] MEDS: CATHETER FLUSH 10 ML SYR IV SCH ×3 (06:30→21:56)
--- NOTE | 2016-08-20 06:53 | Pulmonary Consultation ---
History of Present Illness History of Present Illness Date of Consultation 08/20/16 06:47 Date of Admission History of Present Illness 70yo with hx of COPD and MICAELA presented to ED secondary to worsening SOB and nonproductive cough. Pt states he has had pain that radiates from lower chest around to back. PT has required oxygen since admission. He was evaluated for oxygen as out patient a few weeks ago in my office and did not qualify. Pt was give a rx for prednisone in Dr. Mari office 2 wks ago however he only took one pill. PT was admitted after returning from CT scan and started having severe CP and anxiety. I am consulted for ICU management. Allergies and Home Medications Allergies Coded Allergies: hydrocodone (Unverified Adverse Reaction, Unknown, NIGHTMARES, 12/17/15) Home Medications Acetaminophen 500 Mg Tablet 1,000 MG PO BID PRN PRN PRN PAIN (Reported) NEEDED FOR PAIN Albuterol Sulfate 0.63 Mg/3 Ml Vial.neb 0.63 MG IH (Reported) Albuterol Sulfate 90 Mcg Aer.pow.ba 1-2 PUFF IH (Reported) Alirocumab 75 Mg/1 Ml Pen.injctr 75 MG SQ BI WEEKLY (Reported) Alprazolam 0.25 Mg Tab #30 0.25 MG PO Q8H PRN PRN anxiety Prescribed by: CAILIN EDWARDS on 02/26/14 0804 Aspirin 81 Mg Tab.chew 81 MG PO DAILY (Reported) Budesonide/Formoterol Fumarate 10.2 Gm Hfa.aer.ad 2 PUFF IH BID (Reported) Clopidogrel Bisulfate 75 Mg Tablet 75 MG PO DAILY (Reported) Cyclobenzaprine HCl 10 Mg Tablet 10 MG PO TID (Reported) Furosemide 20 Mg Tablet 20 MG PO PRN EDEMA (Reported) Isosorbide Mononitrate 30 Mg Tab.er.24h #30 30 MG PO DAILY Prescribed by: MOIZ MORALES on 05/31/16 0836 Levalbuterol HCl 0.63 Mg/3 Ml Vial.neb 0.63 MG IH (Reported) Lisinopril 10 Mg Tablet 5 MG PO DAILY (Reported) Metoprolol Tartrate 100 Mg Tablet 50 MG PO BID (Reported) TAKES 1/2 (100MG) TABLET Mometasone Furoate 17 Gm Naspr 50 MCG NS (Reported) Montelukast Sodium 10 Mg Tablet 10 MG PO HS (Reported) Naproxen 500 Mg Tablet 500 MG PO BID (Reported) Nitroglycerin 0.4 Mg Tab.subl #30 0.4 MG SL PRN Prescribed by: MOIZ MORALES on 05/31/16 0836 Omeprazole 20 Mg Tablet.dr 40 MG PO BID (Reported) Roflumilast 500 Mcg Tablet 500 MCG PO DAILY (Reported) Tramadol Hcl 50 Mg Tablet 50 MG PO TID PRN PRN PAIN (Reported) NEEDED FOR PAIN Past Yjyrxfk-Ieuatr-Otukvf Hx Patient Social History Alcohol Use: Denies Use Recreational Drug Use: No Smoking Status: Former Smoker (1 PPD, QUIT 12/2015) Recent Foreign Travel: No Contact w/Someone Who Travel: No Recent Infectious Disease Expo: No Recent Hopitalizations: No Physical Abuse Screen: No Sexual Abuse: No Immunizations Up To Date Tetanus Booster (TDap): Less than 5yrs PED Vaccines UTD: No Date of Pneumonia Vaccine: Apr 14, 2014 Date of Influenza Vaccine: Mar 20, 2016 Seasonal Allergies Seasonal Allergies: No Surgeries HX Surgeries: Yes (RIGHT ANKLE FX/ ORIF; CARDIAC CATH-STENT X 2--LAST ONE 2015 ; 3 VESSEL CABG 1996 PER PT ON 08/19/16 ( OLD RECORDS REPORT 1991) ; ZENKER 'S DIVERTICULUM REMOVED 11/2015) Surgeries: Abdominal, Cardiac, CABG, Coronary Stent, Orthopedic Respiratory Hx Respiratory Disorders: Yes Respiratory Disorders: Asthma, Sleep Apnea, COPD Cardiovascular Hx Cardiac Disorders: Yes (ME 1996--3 VESSEL CABG; STENTS X 2) Cardiac Disorders: Coronary Artery Disease, Heart Attack, High Cholesterol, Hypertension Neurological Hx Neurological Disorders: No Reproductive System Hx Reproductive Disorders: No Sexually Transmitted Disease: No HIV/AIDS: No Genitourinary Hx Genitourinary Disorders: No Gastrointestinal Hx Gastrointestinal Disorders: Yes (ZENKER'S DIVERTICULUM REMOVED 11/2015) Gastrointestinal Disorders: Gastroesophageal Reflux, Diverticulosis Musculoskeletal Hx Musculoskeletal Disorders: Yes (RIGHT ANKLE FX/ORIF) Musculoskeletal Disorders: Arthritis, Chronic Back Pain Endocrine Hx Endocrine Disorders: No HEENT HX ENT Disorders: No HEENT Disorders: Cataract Loss of Vision: Denies Hearing Impairment: Hard of Hearing Cancer Hx Cancer: No Cancer: Skin Psychosocial Hx Psychiatric Problems: No Integumentary HX Skin/Integumentary Disorder: No Blood Transfusions Hx Blood Disorders: No Adverse Reaction to a Blood Tr: No Family Medical History Family Medial History: Diabetes mellitus 19 MOTHER FH: heart disease 19 FATHER 19 MOTHER G8 SISTER FH: inflammatory bowel disease G8 SISTER Review of Systems Constitutional: : Malaise: Sweats: WeaknessNo: Chills, Fever, Other Eyes: No: Conjunctivae inflammation, Eyelid inflammation, Other, Pain, Redness , Vision change ENT: No: Ear discharge, Ear pain, Mouth pain, Mouth swelling, Nose congestion, Nose discharge, Nose pain, Other, Throat pain, Throat swelling Respiratory: : Cough: Dry: SOB with excertion: Shortness of breath Cardiovascular: : Chest Pain: Lt Headedness: Palpitations: Paroxysmal Noc. Dyspnea Gastrointestinal: No: Abdominal Pain, Constipation, Diarrhea, Hematochezia, Melena, Nausea, Other, Vomiting Genitourinary: No Dysuria, No Frequency, No Incontinence, No Hematuria, No Retention, No Other Musculoskeletal: : back pain Neurological: : Weakness Exam Exam Vital Signs Date Time Temp Pulse Resp B/P Pulse Ox O2 Delivery O2 Flow Rate FiO2 08/20/16 06:00 71 16 120/60 92 Nasal Cannula 2.00 08/20/16 05:00 65 13 128/64 93 Nasal Cannula 2.00 08/20/16 04:00 98.0 70 21 116/90 91 Nasal Cannula 2.00 08/20/16 03:00 83 10 97/52 93 Nasal Cannula 2.00 08/20/16 02:00 71 11 100/68 88 Nasal Cannula 2.00 08/20/16 01:05 87 08/20/16 01:00 90 16 95/50 94 Nasal Cannula 2.00 08/20/16 01:00 90 16 95/50 94 08/20/16 00:30 86 18 95/45 92 08/20/16 00:00 86 18 109/67 90 08/20/16 00:00 86 18 109/67 90 Nasal Cannula 2.00 08/19/16 23:51 2.00 08/19/16 23:30 91 11 104/58 89 08/19/16 23:15 92 15 116/65 90 08/19/16 23:00 98.2 93 14 122/69 92 Nasal Cannula 2.00 08/19/16 23:00 93 14 122/69 92 08/19/16 22:45 98.2 97 18 119/73 92 08/19/16 22:42 2.00 08/19/16 22:07 107 08/19/16 21:28 97.7 96 14 95 2 08/19/16 20:30 98.0 08/19/16 19:32 96 2 08/19/16 19:25 87 26 152/81 96 Nasal Cannula 2 08/19/16 18:06 96 Room Air 08/19/16 18:06 98.0 97 20 119/70 94 Room Air General Appearance: No Apparent Distress WD/WN HEENT: PERRL/EOMI Pharynx Normal Neck: Full Range of Motion Normal Inspection Supple Respiratory: Chest Non Tender No Accessory Muscle Use No Respiratory Distress Decreased Breath Sounds Cardiovascular: Regular Rate, Rhythm No Edema Capillary Refill: Less Than 3 Seconds Gastrointestinal: normal bowel sounds non tender soft no organomegaly Extremity: Normal Capillary Refill Normal Inspection Neurologic/Psychiatric: Alert Oriented x3 Skin: Normal Color Cool Lymphatic: No Adenopathy Results Lab Laboratory Tests 08/19/16 18:35 08/20/16 04:00 Assessment/Plan Assessment/Plan COPDAE - Pt now feels much improved -start SVNs, advair -Prednisone slow taper. -Evaluate pt for home 02 MICAELA with CPAP therapy -Continue CPAP Atypical CP -cardiology following -troponins are negative x 3 Morbid obesity -education Will evaluate pt for home 02. If patient goes home continue previous INH ( Symbicort, Spiriva, and albuterol). I will see in f/u in my office in 2-3 wks. Will transfer to cardiac step down. Clinical Quality Measures DVT/VTE Risk/Contraindication: Risk Factor Score Per Nursin RFS Level Per Nursing on Admit: 4+=Very High RUBI GALVIN DO Aug 20, 2016 06:53
[2016-08-20] MEDS ORDERED: RT-ALBUTEROL/IPRATROPIUM 3 ML (DUONEB) VIAL INH PRN (07:00)
--- NOTE | 2016-08-20 08:57 | Diagnostic Imaging Report ---
INDICATION: Followup shortness of air. COMPARISON: 08/19/2016. FINDINGS: There is chronic air trapping and COPD, stable. The sternal wires are midline. The heart size is at the upper limits and stable. No vascular congestion. No edema, pneumonia, effusion, or pneumothorax. IMPRESSION: Stable hyperexpansion of the lungs and post operative sequelae. No acute finding or change. Dictated by: Dictated on workstation # [id number]
[2016-08-20] MEDS ORDERED: ASPIRIN E.C. 325 MG (ECOTRIN) TABLET PO SCH (09:00)
[2016-08-20] MEDS: predniSONE 10 MG TAB PO SCH (09:14)
[2016-08-20] MEDS ORDERED: ALPR0.254 PO (09:44)
[2016-08-20] MEDS ORDERED: NITR0.4T SL (09:44)
[2016-08-20] MEDS ORDERED: ISOS30TA3 PO (09:44)
[2016-08-20] MEDS: RT-ALBUTEROL/IPRATROPIUM 3 ML (DUONEB) VIAL INH SCH ×3 (10:44→21:22)
[2016-08-20] MEDS: RT-ADVAIR HFA 115/21 MCG PER PUFF IH SCH ×2 (10:44→21:22)
--- NOTE | 2016-08-20 10:44 | Consultation-Cardiology ---
HPI-Cardiology Cardiology Consultation Date of Consultation 08/20/16 Date of Admission Indication: chest pain HPI 70 years old gentleman with extensive coronary artery disease history, had 2 bypass surgeries done in the past, cardiac catheterization May 2016 with a stent to the second obtuse marginal branch. Small vessel disease, has been having generalized weakness and increasing shortness of breath which has been worsening over the past few months. Denied any cough or sputum, denied any fever or chills. Reported one episode of chest pain occurred last week where he felt some tightness around his chest while he was pushing a heavy object. Came into the emergency room for increasing dyspnea, did not qualify for oxygen therapy at home. Has been feeling congested in his head and nose. Stuffy. Underwent a CT scan of the chest and post CAT scan he felt tightness around his chest. Resolved after receiving morphine. Since then no further episodes were reported. He is sitting in bed still feeling short of breath without oxygen at this time. Home Medications & Allergies Allergies: Coded Allergies: hydrocodone (Unverified Adverse Reaction, Unknown, NIGHTMARES, 12/17/15) Home Medication List Reviewed: Yes [id number] Hx Patient Social History Marital Status: Employed/Student: retired Alcohol Use: Denies Use Recreational Drug Use: No Smoking Status: Former Smoker (1 PPD, QUIT 12/2015) Recent Foreign Travel: No Recent Infectious Disease Expo: No Recent Hopitalizations: No Physical Abuse Screen: No Sexual Abuse: No Immunizations Up To Date Tetanus Booster (TDap): Less than 5yrs Date of Pneumonia Vaccine: Apr 14, 2014 Date of Influenza Vaccine: Mar 20, 2016 Family Medical History Family History: 19 FATHER FH: heart disease 19 MOTHER Diabetes mellitus FH: heart disease G8 SISTER FH: heart disease FH: inflammatory bowel disease Constitutional: see HPI malaise weakness EENTM: no symptoms reported see HPI Respiratory: see HPINo cough, dyspnea on exertionNo hemoptysis, No orthopnea , No phlegm, No short of breath, No stridor, No wheezing, No other Cardiovascular: see HPI chest painNo edema, No Hx of Intervention, No palpitations, No syncope, No vascular heart diseas, No other Gastrointestinal: no symptoms reported see HPI Genitourinary: no symptoms reported see HPI Musculoskeletal: no symptoms reported see HPI Skin: no symptoms reported see HPI Psychiatric/Neurological: No Symptoms Reported See HPI Reviewed Test Results Reviewed Test Results Lab Laboratory Tests Test 08/19/16 18:35 08/19/16 20:27 08/19/16 23:00 08/20/16 02:07 Range/Units Alanine Aminotransferase (ALT/SGPT) 28 0-55 U/L Albumin 4.1 3.2-4.5 G/DL Alkaline Phosphatase 79 40-136 U/L Anion Gap 11 5-14 MMOL/L Aspartate Amino Transf (AST/SGOT) 18 5-34 U/L B-Type Natriuretic Peptide < 10.0 <100.0 PG/ML BUN/Creatinine Ratio 16 Basophils # (Auto) 0.0 0.0-0.1 10^3/uL Basophils (%) (Auto) 0 0-10 % Blood Urea Nitrogen 16 7-18 MG/DL Calcium Level 9.4 8.5-10.1 MG/DL Carbon Dioxide Level 19 L 21-32 MMOL/L Chloride Level 107 98-107 MMOL/L Creatinine 0.97 0.60-1.30 MG/DL Eosinophils # (Auto) 0.0 0.0-0.3 10^3/uL Eosinophils (%) (Auto) 0 0-10 % Estimat Glomerular Filtration Rate > 60 Glucose Level 148 H 70-105 MG/DL Hematocrit 45 40-54 % Hemoglobin 15.3 13.3-17.7 G/DL Lymphocytes # (Auto) 1.7 1.0-4.0 X 10^3 Lymphocytes (%) (Auto) 18 12-44 % Mean Corpuscular Hemoglobin 31 25-34 PG Mean Corpuscular Hemoglobin Concent 34 32-36 G/DL Mean Corpuscular Volume 91 80-99 FL Mean Platelet Volume 9.8 7.4-10.4 FL Monocytes # (Auto) 0.6 0.0-1.0 X 10^3 Monocytes (%) (Auto) 6 0-12 % Neutrophils # (Auto) 7.4 1.8-7.8 X 10^3 Neutrophils (%) (Auto) 76 H 42-75 % Platelet Count 242 130-400 10^3/uL Potassium Level 4.3 3.6-5.0 MMOL/L Red Blood Count 4.98 4.35-5.85 10^6/uL Red Cell Distribution Width 13.7 10.0-14.5 % Sodium Level 137 135-145 MMOL/L Total Bilirubin 0.3 0.1-1.0 MG/DL Total Protein 7.0 6.4-8.2 G/DL Troponin I < 0.30 < 0.30 < 0.30 <0.30 NG/ML White Blood Count 9.8 4.3-11.0 10^3/uL Urine Bacteria NEGATIVE /HPF Urine Bilirubin NEGATIVE NEGATIVE Urine Casts PRESENT /LPF Urine Clarity CLEAR Urine Color YELLOW Urine Crystals NONE /LPF Urine Culture Indicated NO Urine Glucose (UA) NEGATIVE NEGATIVE Urine Hyaline Casts RARE /LPF Urine Ketones NEGATIVE NEGATIVE Urine Leukocyte Esterase NEGATIVE NEGATIVE Urine Mucus NEGATIVE /LPF Urine Nitrite NEGATIVE NEGATIVE Urine Protein NEGATIVE NEGATIVE Urine RBC NONE /HPF Urine RBC (Auto) NEGATIVE NEGATIVE Urine Specific [place] 1.005 L 1.016-1.022 Urine Squamous Epithelial Cells RARE /HPF Urine Urobilinogen NORMAL NORMAL MG/DL Urine WBC NONE /HPF Urine pH 5 5-9 Activated Partial Thromboplast Time 38 H 24-35 SEC INR Comment 1.2 0.8-1.4 Myoglobin 51.7 10.0-92.0 NG/ML Prothrombin Time 14.5 12.2-14.7 SEC Test 08/20/16 04:00 Range/Units Alanine Aminotransferase (ALT/SGPT) 26 0-55 U/L Albumin 4.0 3.2-4.5 G/DL Alkaline Phosphatase 80 40-136 U/L Anion Gap 13 5-14 MMOL/L Aspartate Amino Transf (AST/SGOT) 16 5-34 U/L BUN/Creatinine Ratio 17 Band Neutrophils 2 % Basophils # (Auto) 0.0 0.0-0.1 10^3/uL Basophils % (Manual) 0 % Basophils (%) (Auto) 0 0-10 % Blood Morphology Comment NORMAL Blood Urea Nitrogen 18 7-18 MG/DL Calcium Level 9.4 8.5-10.1 MG/DL Carbon Dioxide Level 21 21-32 MMOL/L Chloride Level 103 98-107 MMOL/L Cholesterol Level 176 < 200 MG/DL Creatinine 1.03 0.60-1.30 MG/DL Eosinophils # (Auto) 0.0 0.0-0.3 10^3/uL Eosinophils % (Manual) 0 % Eosinophils (%) (Auto) 0 0-10 % Estimat Glomerular Filtration Rate > 60 Glucose Level 147 H 70-105 MG/DL HDL Cholesterol 50 40-60 MG/DL Hematocrit 45 40-54 % Hemoglobin 15.2 13.3-17.7 G/DL LDL Cholesterol Direct 117 1-129 MG/DL Lymphocytes # (Auto) 1.4 1.0-4.0 X 10^3 Lymphocytes % (Manual) 6 % Lymphocytes (%) (Auto) 10 L 12-44 % Magnesium Level 2.2 1.8-2.4 MG/DL Mean Corpuscular Hemoglobin 31 25-34 PG Mean Corpuscular Hemoglobin Concent 34 32-36 G/DL Mean Corpuscular Volume 90 80-99 FL Mean Platelet Volume 9.8 7.4-10.4 FL Monocytes # (Auto) 0.1 0.0-1.0 X 10^3 Monocytes % (Manual) 2 % Monocytes (%) (Auto) 1 0-12 % Neutrophils # (Auto) 11.5 H 1.8-7.8 X 10^3 Neutrophils % (Manual) 80 % Neutrophils (%) (Auto) 89 H 42-75 % Phosphorus Level 3.6 2.3-4.7 MG/DL Platelet Count 245 130-400 10^3/uL Potassium Level 4.5 3.6-5.0 MMOL/L Reactive Lymphocytes 10 % Red Blood Count 4.99 4.35-5.85 10^6/uL Red Cell Distribution Width 13.8 10.0-14.5 % Sodium Level 137 135-145 MMOL/L Total Bilirubin 0.3 0.1-1.0 MG/DL Total Protein 7.0 6.4-8.2 G/DL Triglycerides Level 81 <150 MG/DL VLDL Cholesterol 16 5-40 MG/DL White Blood Count 13.0 H 4.3-11.0 10^3/uL Physical Exam Vital Signs Vital Sign - Last 12Hours 08/19/16 19:25 O2 Flow Rate 2 Capillary Refill : Less Than 3 Seconds General Appearance: No Apparent Distress WD/WN Eyes: Bilateral Eye EOMI, Bilateral Eye Normal Inspection, Bilateral Eye PERRL HEENT: PERRL/EOMI TMs Normal Normal ENT Inspection Pharynx Normal Neck: Full Range of Motion Normal Inspection Non Tender Supple Carotid Bruit Respiratory: Chest Non Tender Lungs Clear Normal Breath Sounds No Accessory Muscle Use No Respiratory Distress Cardiovascular: Regular Rate, Rhythm No Edema No Gallop No JVD No Murmur Normal Peripheral Pulses Gastrointestinal: Normal Bowel Sounds No Organomegaly No Pulsatile Mass Non Tender Soft Back: Normal Inspection No CVA Tenderness No Vertebral Tenderness Extremity: Normal Capillary Refill Normal Inspection Normal Range of Motion Non Tender No Calf Tenderness No Pedal Edema Neurologic/Psychiatric: Alert Oriented x3 No Motor/Sensory Deficits Normal Mood/Affect Skin: Normal Color Warm/Dry Lymphatic: No Adenopathy A/P-Cardiology Admission Diagnosis Chest pain nonspecific etiology Shortness of breath Coronary artery disease COPD Assessment/Plan Chest pain nonspecific etiology, atypical in presentation, reporting 2 episodes of chest pain one occurred after having the CAT scan done yesterday and one episode occurred last week, feeling tightness all over his chest and relieving spontaneously without the use of nitroglycerin. Currently feeling better, chest pain-free, cardiac enzymes and EKG did not show any acute changes, we discussed the management plan, recommended planning Lexiscan stress test once his lung status is more stable Increasing dyspnea, acute exacerbation of COPD, receiving prednisone and bronchodilator and reporting improvement after bronchodilators. Managed by Dr. Stevens. May require home oxygen. Obstructive sleep apnea, using C Pap at home. Coronary artery disease, history of CABG 3 done in 1996 in [facility] , underwent redo surgery time 1 in 1998. Had multiple interventions in the past. Most recent cardiac catheterization done May 30, 2016 revealed occluded vein graft to the circumflex. Patent vein graft RCA, patent BELTRAN to LAD. LAD was totally occluded with stent in the proximal portion. Right coronary artery totally occluded with vein graft to the right coronary artery patent with small vessel disease distally. Circumflex artery had severe stenosis of second obtuse marginal branch that is a smaller artery. Vein graft to the circumflex was occluded. 40-50 percent ostial stenosis in the left main. Angioplasty and stent appointment to the second obtuse marginal branch with excellent results using 2.5 x 12 mm Promus Premier. Maintained on Plavix and aspirin at this time. planning to evaluate stress test once clinically more stable. Hypertension, restart home medication monitor blood pressure Hyperlipidemia, intolerant to statin. Causing muscle and joint pain, maintained on Prameela. Most recent lipid profile done May 30, 2016 revealed total cholesterol 176, LDL 107, HDL 51, triglycerides 117. continue to monitor lipids Moderate bilateral carotid stenosis, ultrasound was done in November 2015, continue to monitor Tobaccoism, he has stopped smoking in December 2015, encouraged to continue with smoking cessation Strong family history of heart disease. Obesity, BMI is 31. Patient was educated on weight loss and exercise. Osteoarthritis, arthritic pain. Anxiety Clinical Quality Measures DVT/VTE Risk/Contraindication: Risk Factor Score Per Nursin RFS Level Per Nursing on Admit: 4+=Very High MOIZ MORALES MD Aug 20, 2016 10:44
[2016-08-20] MEDS ORDERED: LISI-556 PO (16:20)
[2016-08-20] MEDS ORDERED: CETI10TA17 PO (16:22)
[2016-08-20] MEDS ORDERED: meTOprolol 5 MG/5 ML (LOPRESSOR) VIAL ONE ×2 (16:24)
[2016-08-20] MEDS ORDERED: meTOprolol 5 MG/5 ML (LOPRESSOR) VIAL IV NR (16:30)
--- NOTE | 2016-08-20 16:31 | History & Physical-Hospitalist ---
HPI History of Present Illness: HPI/Chief Complaint Mr. Carrillo's a 70-year-old white male reports he really hasn't felt well since he underwent stent placement to an obtuse marginal coronary artery in May per Dr. Cr. Knees continue to have dysmenorrhea exertion. He also has COPD. For the past week he's been having increasing back pain promptly with exertion. He's had generalized fatigue and has not noted any improvement with inhaler therapy. He apparently had night time and ambulatory O2 monitoring and did not qualify for oxygen therapy. Because of his fatigue and dyspnea on exertion and back discomfort he presented the emergency room via private vehicle last night. He is returning from CT scanning that did not reveal any evidence for aortic aneurysm dissection pneumonia or pulmonary embolism. coronary calcium was noted. He did develop severe crushing chest discomfort. I did review his ECG which did reveal widening right bundle branch block with new onset ST segment depression 2-3 mm in V3 and V4 he was given nitroglycerin and morphine which resolved his symptoms and he was transferred to the intensive care unit where Dr. Cr was consulted. I have been told by nursing staff that he is being taken to cardiac catheterization later tonight. He tells me did have an episode of similar discomfort although not as intense only rated a 6 out of 10 versus 10 out of 10 last night and now rated it a 1-2 out of 10. ECG revealed with this morning QRS duration had been back down the 120 ms with his pain was back up to [address] depression or elevation. He appears to be in no acute distress. Date Seen 08/20/16 Attending Physician Hubert Walker MD PCP Hubert Walker MD Referring Physician Date of Admission Aug 19, 2016 at 21:22 Home Medications & Allergies Home Medications Reviewed patient Home Medication Reconciliation Form Allergies Coded Allergies: hydrocodone (Unverified Adverse Reaction, Unknown, NIGHTMARES, 12/17/15) Past [id number] Hx Patient Social History Marrital Status: Employed/Student: retired Alcohol Use: Denies Use Recreational Drug Use: No Smoking Status: Former Smoker (1 PPD, QUIT 12/2015) Physical Abuse Screen: No Sexual Abuse: No Recent Foreign Travel: No Contact w/other who traveled: No Recent Hopitalizations: No Recent Infectious Disease Expo: No Immunizations Up To Date Tetanus Booster (TDap): Less than 5yrs Date of Pneumonia Vaccine: Apr 14, 2014 Date of Influenza Vaccine: Mar 20, 2016 Seasonal Allergies Seasonal Allergies: No Surgeries HX Surgeries: Yes (RIGHT ANKLE FX/ ORIF; CARDIAC CATH-STENT X 2--LAST ONE 2015 ; 3 VESSEL CABG 1996 PER PT ON 08/19/16 ( OLD RECORDS REPORT 1991) ; ZENKER 'S DIVERTICULUM REMOVED 11/2015) Surgeries: Abdominal, Cardiac, CABG, Coronary Stent, Orthopedic Respiratory Hx Respiratory Disorders: Yes Cardiovascular Hx Cardiovascular Disorders: Yes ([place] 1996--3 VESSEL CABG; STENTS X 2) Cardiac Disorders: Coronary Artery Disease, Heart Attack, High Cholesterol, Hypertension Neurological Hx Neurological Disorders: No Reproductive System Hx Reproductive Disorders: No Sexually Transmitted Disease: No HIV/AIDS: No Genitourinary Hx Genitourinary Disorders: No Gastrointestinal Hx Gastrointestinal Disorders: Yes (ZENKER'S DIVERTICULUM REMOVED 11/2015) Gastrointestinal Disorders: Gastroesophageal Reflux, Diverticulosis Musculoskeletal Hx Musculoskeletal Disorders: Yes (RIGHT ANKLE FX/ORIF) Musculoskeletal Disorders: Arthritis, Chronic Back Pain Endocrine Hx Endocrine Disorders: No HEENT HX ENT Disorders: No HEENT Disorders: Cataract Loss of Vision: Denies Hearing Impairment: Hard of Hearing Cancer Hx Cancer: No Cancer: Skin Psychosocial Hx Psychiatric Problems: No Integumentary HX Skin/Integumentary Disorder: No Blood Transfusions Hx Blood Disorders: No Adverse Reaction to a Blood Tr: No Family Medical History Family Hx: Diabetes mellitus 19 MOTHER FH: heart disease 19 FATHER 19 MOTHER G8 SISTER FH: inflammatory bowel disease G8 SISTER Review of Systems Constitutional: no symptoms reported see HPINo chills, No diaphoresis, No dizziness, No fever, No malaise, weaknessNo weight gain, No weight loss Respiratory: short of breath Cardiovascular: see HPI chest pain Gastrointestinal: No RUQ, No LUQ, No RLQ, No LLQ, No abdominal pain, No constipation, No diarrhea, No dysphagia, No hematemesis, heartburn (occasional much better since he started acid blocking therapy with rare antacid usage.)No jaundice, No loss of appetite, No melena, No nausea, No vomiting, No other Physical Exam Physical Exam Vital Signs Vital Sign - Last 12Hours 08/19/16 19:25 O2 Flow Rate 2 Capillary Refill : Less Than 3 Seconds General Appearance: No Apparent Distress Obese Neck: Full Range of Motion Normal Inspection Respiratory: Chest Non Tender Lungs Clear Normal Breath Sounds No Accessory Muscle Use No Respiratory Distress Cardiovascular: Regular Rate, Rhythm No Edema No Gallop No JVD No Murmur Normal Peripheral Pulses Tachycardia Gastrointestinal: Normal Bowel Sounds No Organomegaly No Pulsatile Mass Non Tender Soft Extremity: Normal Capillary Refill Normal Inspection Normal Range of Motion Non Tender No Calf Tenderness No Pedal Edema Neurologic/Psychiatric: Alert Oriented x3 Skin: Normal Color Other (patient appears flushed skin examination otherwise unremarkable purpura) Comments Laboratory Tests 08/19/16 18:35: Alanine Aminotransferase (ALT/SGPT) 28, Albumin 4.1, Alkaline Phosphatase 79, Anion Gap 11, Aspartate Amino Transf (AST/SGOT) 18, B-Type Natriuretic Peptide < 10.0, BUN/Creatinine Ratio 16, Basophils # (Auto) 0.0, Basophils (%) (Auto) 0 , Blood Urea Nitrogen 16, Calcium Level 9.4, Carbon Dioxide Level 19L, Chloride Level 107, Creatinine 0.97, Eosinophils # (Auto) 0.0, Eosinophils (%) (Auto) 0, Estimat Glomerular Filtration Rate > 60, Glucose Level 148H, Hematocrit 45, Hemoglobin 15.3, Lymphocytes # (Auto) 1.7, Lymphocytes (%) (Auto) 18, Mean Corpuscular Hemoglobin 31, Mean Corpuscular Hemoglobin Concent 34, Mean Corpuscular Volume 91, Mean Platelet Volume 9.8, Monocytes # (Auto) 0.6, Monocytes (%) (Auto) 6, Neutrophils # (Auto) 7.4, Neutrophils (%) (Auto) 76H, Platelet Count 242, Potassium Level 4.3, Red Blood Count 4.98, Red Cell Distribution Width 13.7, Sodium Level 137, Total Bilirubin 0.3, Total Protein 7.0, Troponin I < 0.30, White Blood Count 9.8 08/19/16 20:27: Troponin I < 0.30 08/19/16 23:00: Urine Bacteria NEGATIVE, Urine Bilirubin NEGATIVE, Urine Casts PRESENT, Urine Clarity CLEAR, Urine Color YELLOW, Urine Crystals NONE, Urine Culture Indicated NO, Urine Glucose (UA) NEGATIVE, Urine Hyaline Casts RARE, Urine Ketones NEGATIVE, Urine Leukocyte Esterase NEGATIVE, Urine Mucus NEGATIVE, Urine Nitrite NEGATIVE, Urine Protein NEGATIVE, Urine RBC NONE, Urine RBC (Auto) NEGATIVE, Urine Specific [place] 1.005L, Urine Squamous Epithelial Cells RARE, Urine Urobilinogen NORMAL, Urine WBC NONE, Urine pH 5 2/6/17 02:07: Troponin I < 0.30, Activated Partial Thromboplast Time 38H, INR Comment 1.2, Myoglobin 51.7, Prothrombin Time 14.5 08/20/16 04:00: Alanine Aminotransferase (ALT/SGPT) 26, Albumin 4.0, Alkaline Phosphatase 80, Anion Gap 13, Aspartate Amino Transf (AST/SGOT) 16, BUN/Creatinine Ratio 17, Band Neutrophils 2, Basophils # (Auto) 0.0, Basophils % (Manual) 0, Basophils (% ) (Auto) 0, Blood Morphology Comment NORMAL, Blood Urea Nitrogen 18, Calcium Level 9.4, Carbon Dioxide Level 21, Chloride Level 103, Cholesterol Level 176, Creatinine 1.03, Eosinophils # (Auto) 0.0, Eosinophils % (Manual) 0, Eosinophils (%) (Auto) 0, Estimat Glomerular Filtration Rate > 60, Glucose Level 147H, HDL Cholesterol 50, Hematocrit 45, Hemoglobin 15.2, LDL Cholesterol Direct 117, Lymphocytes # (Auto) 1.4, Lymphocytes % (Manual) 6, Lymphocytes (%) (Auto) 10L, Magnesium Level 2.2, Mean Corpuscular Hemoglobin 31, Mean Corpuscular Hemoglobin Concent 34, Mean Corpuscular Volume 90, Mean Platelet Volume 9.8, Monocytes # (Auto) 0.1, Monocytes % (Manual) 2, Monocytes (%) (Auto ) 1, Neutrophils # (Auto) 11.5H, Neutrophils % (Manual) 80, Neutrophils (%) ( Auto) 89H, Phosphorus Level 3.6, Platelet Count 245, Potassium Level 4.5, Reactive Lymphocytes 10, Red Blood Count 4.99, Red Cell Distribution Width 13.8 , Sodium Level 137, Total Bilirubin 0.3, Total Protein 7.0, Triglycerides Level 81, VLDL Cholesterol 16, White Blood Count 13.0H Microbiology 08/19/16 Blood Culture - Preliminary, Resulted No growth 08/19/16 Influenza Types A,B Antigen (JASON) - Final, Complete Results Results/Procedures Lab Laboratory Tests 08/19/16 18:35 08/20/16 04:00 Assessment/Plan Admission Diagnosis 1. Unstable angina most likely patient appears to be scheduled for cardiac catheterization later today. As he is currently in sinus tachycardia with very low-grade chest discomfort will give a 1 time dose of 10 mg metoprolol IV and continue to monitor. We'll continue to follow with cardiology. 2. History of coronary artery disease. 3. History of COPD non-oxygen dependent Dr. Stevens's help appreciated. 4. Hypertension. 5. Hyperlipidemia reportedly statin intolerant. Assessment and Plan as per above Clinical Quality Measures DVT/VTE Risk/Contraindication: Risk Factor Score Per Nursin RFS Level Per Nursing on Admit: 4+=Very High VONNIE SANDOVAL MD Aug 20, 2016 16:31
[2016-08-20] MEDS ORDERED: NS IV 1000 ML 1,000 ML ONE (16:56)
[2016-08-20] MEDS ORDERED: NS IV 1000 ML 1,000 ML IV SCH ×2 (17:15→18:34)
--- NOTE | 2016-08-20 17:17 | Cardiac Procedure Note-CS/ASA ---
Pre-Procedure Note Pre-Op Procedure Note H&P Reviewed The H&P was reviewed, patient examined and no changes noted. Date H&P Reviewed: Aug 20, 2016 Time H&P Reviewed: 17:17 Conscious Sedation Pre-Proced Time Reviewed: 17:17 ASA Class: 3 Airway Mallampati Classification: (napaimute appropriate class) I. II. III, IV Lungs Heart ASA score ASA 1: a normal healthy patient ASA 2: a patient with a mild systemic disease (mid diabetes, controlled hypertension, obesity x ASA 3: a patient with a severe systemic disease that limits activity (angina , COPD, prior Myocardial infarction) ASA 4: a patient with an incapacitating disease that is a constant threat to life (CHF, renal failure) ASA 5: a moribund patient not expected to survive 24 hrs. (ruptured aneurysm) ASA 6: a declared brain patient whose organs are being harvested. For emergent operations, add the letter E after the classification Grade 3 Sedation Plan: Analgesia, Amnesia, Plan communicated to team members, Discussed options with patient/fam, Discussed risks with patient/fam Note The patient is an appropriate candidate to undergo the planned procedure, sedation, and anesthesia. The patient immediately re-assessed prior to indication. MOIZ MORALES MD Aug 20, 2016 17:17
[2016-08-20] MEDS: NS IV 1000 ML 1,000 ML IV SCH (17:24)
[2016-08-20] MEDS ORDERED: LIDOCAINE 1% INJ 20 ML (XYLOCAINE) VIAL ONE (17:24)
[2016-08-20] MEDS ORDERED: NS IV 1000 ML 0 ML ONE (17:24)
[2016-08-20] MEDS ORDERED: HEParin (CATH LAB) 2,000 ML IV ONE (17:24)
[2016-08-20] MEDS ORDERED: fentaNYL INJECTION 100 MCG/2 ML AMP ONE (17:37)
[2016-08-20] MEDS ORDERED: MIDAZOLAM 5 MG/5 ML (VERSED) VIAL ONE (17:37)
[2016-08-20] MEDS ORDERED: ASPIRIN 81 MG CHEW (CHILDREN'S ASA) ONE (18:38)
[2016-08-20] MEDS ORDERED: CLOPIDOGREL 75 MG (PLAVIX) TABLET ONE (18:38)
[2016-08-20] MEDS ORDERED: ALPRAZolam 0.25 MG (XANAX) TAB PO PRN (18:45)
[2016-08-20] MEDS ORDERED: PATIENT MAY USE OWN MEDS, ALL PO SCH (18:45)
[2016-08-20] MEDS ORDERED: FUROSEMIDE 20 MG (LASIX) TAB PO PRN (18:45)
[2016-08-20] MEDS: meTOprolol TARTRATE 50 MG (LOPRESSOR) TAB PO SCH (20:20)
[2016-08-20] MEDS: PANTOPRAZOLE 40 MG (PROTONIX) TAB PO SCH (20:20)
[2016-08-21] VITALS: BP 116/62
[2016-08-21 01:00] VITALS: BP 118/62
[2016-08-21] MEDS: NS IV 1000 ML 1,000 ML IV SCH (03:30)
[2016-08-21 04:00] VITALS: BP 123/68
[2016-08-21 04:30] LABS: BASOPHILS % (AUTO) 0 % (0-10); EOSINOPHILS % (AUTO) 0 % (0-10); LYMPHOCYTES # (AUTO) 2.3 X 10^3 (1.0-4.0); LYMPHOCYTES % (AUTO) 17 % (12-44); MEAN CORPUSCULAR HEMOGLOBIN 30 PG (25-34); MEAN CORPUSCULAR HGB CONC 34 G/DL (32-36); MEAN CORPUSCULAR VOLUME 90 FL (80-99); MEAN PLATELET VOLUME 9.6 FL (7.4-10.4); MONOCYTES # (AUTO) 1.4 X 10^3 (0.0-1.0); MONOCYTES % (AUTO) 10 % (0-12); NEUTROPHILS # (AUTO) 10.1 X 10^3 (1.8-7.8); NEUTROPHILS % (AUTO) 74 % (42-75); PLATELET COUNT 224 10^3/uL (130-400); RED BLOOD COUNT 4.75 10^6/uL (4.35-5.85); RED CELL DISTRIBUTION WIDTH 13.8 % (10.0-14.5); WHITE BLOOD COUNT 13.7 10^3/uL (4.3-11.0)
[2016-08-21] MEDS: RT-ALBUTEROL/IPRATROPIUM 3 ML (DUONEB) VIAL INH SCH ×2 (04:36→06:21)
[2016-08-21 04:55] LABS: ANION GAP 10 MMOL/L (5-14); BLOOD UREA NITROGEN 20 MG/DL (7-18); BUN/CREATININE RATIO 20; CALCIUM 9.3 MG/DL (8.5-10.1); CARBON DIOXIDE 23 MMOL/L (21-32); CHLORIDE 104 MMOL/L (98-107); CREATININE SERUM 0.99 MG/DL (0.60-1.30); GFR ESTIMATED > 60; GLUCOSE 116 MG/DL (70-105); MAGNESIUM 2.3 MG/DL (1.8-2.4); PHOSPHORUS 3.3 MG/DL (2.3-4.7); POTASSIUM 4.2 MMOL/L (3.6-5.0); SODIUM 137 MMOL/L (135-145)
[2016-08-21] MEDS: CATHETER FLUSH 10 ML SYR IV SCH (06:00)
[2016-08-21] MEDS: PANTOPRAZOLE 40 MG (PROTONIX) TAB PO SCH (06:00)
--- NOTE | 2016-08-21 06:17 | Pulmonary Progress Note ---
Subjective Subjective/Events-last exam No complications noted. Exam Exam Vital Signs Date Time Temp Pulse Resp B/P Pulse Ox O2 Delivery O2 Flow Rate FiO2 08/21/16 04:00 92 08/21/16 04:00 98.3 92 16 123/68 93 Room Air 08/21/16 01:00 87 118/62 92 Room Air 08/21/16 01:00 85 08/21/16 00:00 85 116/62 91 Room Air 08/21/16 00:00 92 08/20/16 23:42 97.5 08/20/16 23:00 96 124/63 92 Room Air 08/20/16 22:00 103 120/65 90 Room Air 08/20/16 21:30 105 148/73 91 Room Air 08/20/16 21:22 92 08/20/16 21:00 102 131/66 87 Room Air 08/20/16 20:30 107 142/70 89 Room Air 08/20/16 20:00 92 08/20/16 20:00 98.0 08/20/16 20:00 101 139/75 90 Room Air 08/20/16 19:45 95 127/69 90 Room Air 08/20/16 19:30 99 130/63 89 Room Air 08/20/16 19:15 107 133/71 93 Room Air 08/20/16 19:00 102 08/20/16 19:00 102 138/74 90 Room Air 08/20/16 18:45 97.8 101 16 136/72 92 Room Air 08/20/16 16:35 97.6 101 16 130/73 93 Nasal Cannula 2.00 08/20/16 16:35 93 2.00 08/20/16 14:25 122 169/83 08/20/16 13:53 95 2.00 08/20/16 13:00 110 08/20/16 12:00 93 2.00 08/20/16 11:57 98.7 81 18 124/78 93 Nasal Cannula 2.00 08/20/16 10:44 98 2.00 08/20/16 10:31 93 2.00 08/20/16 09:00 98.9 83 16 129/98 92 Nasal Cannula 2.00 08/20/16 09:00 91 2.00 08/20/16 08:00 75 17 120/64 94 Nasal Cannula 2.00 08/20/16 07:00 75 18 120/74 87 Nasal Cannula 2.00 08/20/16 07:00 69 I & O 08/21/16 06:59 Intake Total 1970 ml Output Total 1125 ml Balance 845 ml General Appearance: No Apparent Distress Obese HEENT: PERRL/EOMI TMs Normal Normal ENT Inspection Pharynx Normal Neck: Full Range of Motion Normal Inspection Respiratory: Chest Non Tender Lungs Clear Normal Breath Sounds No Accessory Muscle Use No Respiratory Distress Cardiovascular: Regular Rate, Rhythm No Edema No Gallop No JVD No Murmur Normal Peripheral Pulses Tachycardia Capillary Refill: Less Than 3 Seconds Gastrointestinal: normal bowel sounds non tender soft no organomegaly Extremity: Normal Capillary Refill Normal Inspection Normal Range of Motion Non Tender No Calf Tenderness No Pedal Edema Neurologic/Psychiatric: Alert Oriented x3 Skin: Normal Color Other (patient appears flushed skin examination otherwise unremarkable purpura) Lymphatic: No Adenopathy Results Lab Laboratory Tests 08/19/16 18:35 08/20/16 04:00 08/21/16 04:07 Assessment/Plan Assessment/Plan COPDAE - Pt now feels much improved -start SVNs, advair -Prednisone slow taper. -Evaluate pt for home 02 MICAELA with CPAP therapy -Continue CPAP Atypical CP -cardiology following -troponins are negative x 3 Morbid obesity -education Will need home 02. If patient goes home continue prednisone taper and previous INH (Symbicort, Spiriva, and albuterol). I will see in f/u in my office in 2-3 wks. Will transfer to cardiac step down. Clinical Quality Measures DVT/VTE Risk/Contraindication: Risk Factor Score Per Nursin RFS Level Per Nursing on Admit: 4+=Very High RUBI GALVIN DO Aug 21, 2016 06:17
[2016-08-21] MEDS: RT-ADVAIR HFA 115/21 MCG PER PUFF IH SCH (06:21)
[2016-08-21] MEDS: predniSONE 10 MG TAB PO SCH (07:50)
[2016-08-21] MEDS: meTOprolol TARTRATE 50 MG (LOPRESSOR) TAB PO SCH (07:51)
--- NOTE | 2016-08-21 08:45 | Diagnostic Imaging Report ---
INDICATION: Shortness of air. COMPARISON: 08/20/2016. FINDINGS: The sternal wires are midline. Symmetrical air trapping and hyperexpansion of the lungs are stable. The heart size is at the upper limits but stable. No gross overdistention of the vascularity. No edema, pneumonia, effusion, or pneumothorax. IMPRESSION: Stable chronic findings. Dictated by: Dictated on workstation # [id number]
[2016-08-21] MEDS ORDERED: CLOPIDOGREL 75 MG (PLAVIX) TABLET PO SCH (09:00)
[2016-08-21] MEDS ORDERED: ASPIRIN 81 MG CHEW (CHILDREN'S ASA) PO SCH (09:00)
[2016-08-21] MEDS ORDERED: ISOSORBIDE MONONITRATE 30 MG (IMDUR) TAB PO SCH (09:00)
[2016-08-21] MEDS ORDERED: lisINopril 5 MG (PRINIVIL) TABLET PO SCH (09:00)
[2016-08-21] MEDS ORDERED: LORazepam INJ 2 MG/ML (ATIVAN) VIAL IVP NR (09:44)
--- NOTE | 2016-08-21 11:03 | Discharge Summary-Hospitalist ---
Diagnosis/Chief Complaint Date of Admission Aug 19, 2016 at 21:22 Date of Discharge Discharge Date: Admission Diagnosis 1. Unstable angina most likely patient appears to be scheduled for cardiac catheterization later today. As he is currently in sinus tachycardia with very low-grade chest discomfort will give a 1 time dose of 10 mg metoprolol IV and continue to monitor. We'll continue to follow with cardiology. 2. History of coronary artery disease. 3. History of COPD non-oxygen dependent Dr. Stevens's help appreciated. 4. Hypertension. 5. Hyperlipidemia reportedly statin intolerant. 6. Right lobe hepatic mass Discharge Diagnosis as per above Reason Hospital Visit/Course Mr. Carrillo's a 70-year-old white male reports he really hasn't felt well since he underwent stent placement to an obtuse marginal coronary artery in May per Dr. Cr. Knees continue to have dysmenorrhea exertion. He also has COPD. For the past week he's been having increasing back pain promptly with exertion. He's had generalized fatigue and has not noted any improvement with inhaler therapy. He apparently had night time and ambulatory O2 monitoring and did not qualify for oxygen therapy. Because of his fatigue and dyspnea on exertion and back discomfort he presented the emergency room via private vehicle last night. He is returning from CT scanning that did not reveal any evidence for aortic aneurysm dissection pneumonia or pulmonary embolism. coronary calcium was noted. in's and then only a right hepatic lobe mass was noted. He did develop severe crushing chest discomfort. I did review his ECG which did reveal widening right bundle branch block with new onset ST segment depression 2-3 mm in V3 and V4 he was given nitroglycerin and morphine which resolved his symptoms and he was transferred to the intensive care unit where Dr. Cr was consulted. I have been told by nursing staff that he is being taken to cardiac catheterization later tonight. He tells me did have an episode of similar discomfort although not as intense only rated a 6 out of 10 versus 10 out of 10 last night and now rated it a 1-2 out of 10. ECG revealed with this morning QRS duration had been back down the 120 ms with his pain was back up to [address] depression or elevation. He appears to be in no acute distress. Hospital course: Patient was admitted to intensive care unit where he ruled out for acute infarction. He did have recurrent chest pain and was taken to the catheter lab where he did not have any evidence for new epicardial coronary artery disease. He does have significant small vessel disease however in with his ECG changes it is felt that he does have angina on a microvascular basis. PC SK 9 inhibitor therapy in the form of Praluent was initiated. I discussed and reviewed his CT angiogram films with Dr. Lorenz did not feel the hepatic mass was compatible with an abscess he was more concerned about hepatoma and did recommend proceeding with an MRI with and without contrast. Dr. Cr did use a rather small amount of contrast yesterday and his creatinine is stable today. We attempted MRI this morning but claustrophobia prevented the morning scan I have given the patient milligram of lorazepam IV and we will attempt again this afternoon. He has no past history of known hepatitis or IV drug use. He did undergo bypass in the early he is not aware of any other potential blood transfusions and does not recall whether or not he received transfusion around his bypass surgery. We do have hepatitis B and C serologies pending in addition to an alpha-fetoprotein level. It has only been 3 months since his last stent placement. I still have some concerns about an abscess from a clinical perspective. His white count was normal one admission but was 13,000 this morning. He however has not had any night sweats chills or fever and did have the stress of significant chest and back pain likely on the basis of microvascular angina. He was advised to take Roxanol half cc of a 20 mg/mL solution in addition to nitroglycerin sublingual should he have recurrent pain. If this does not relieve his discomfort he is to return to the emergency room for repeat evaluation. If his AFP level is elevated and he has a classic appearance of hepatoma on MRI he can be empirically treated. If it is not clear then he will have to take the risk of coming off aspirin and Plavix short- term which I discussed with Dr. Cr for sono guided fine needle biopsy for histopathology and culture. Discharge Summary Discharge Physical Examination Allergies: Coded Allergies: hydrocodone (Unverified Adverse Reaction, Unknown, NIGHTMARES, 12/17/15) Vitals & I&Os Vital Signs Date Time Temp Pulse Resp B/P Pulse Ox O2 Delivery O2 Flow Rate FiO2 08/21/16 08:00 94 08/21/16 07:00 110 08/21/16 04:00 98.3 16 123/68 Room Air 08/20/16 16:35 2.00 Hospital Course Labs (last 24 hrs) Laboratory Tests 08/21/16 04:07: Anion Gap 10, BUN/Creatinine Ratio 20, Basophils # (Auto) 0.0, Basophils (%) ( Auto) 0, Blood Urea Nitrogen 20H, Calcium Level 9.3, Carbon Dioxide Level 23, Chloride Level 104, Creatinine 0.99, Eosinophils # (Auto) 0.0, Eosinophils (%) ( Auto) 0, Estimat Glomerular Filtration Rate > 60, Glucose Level 116H, Hematocrit 43, Hemoglobin 14.4, Lymphocytes # (Auto) 2.3, Lymphocytes (%) (Auto ) 17, Magnesium Level 2.3, Mean Corpuscular Hemoglobin 30, Mean Corpuscular Hemoglobin Concent 34, Mean Corpuscular Volume 90, Mean Platelet Volume 9.6, Monocytes # (Auto) 1.4H, Monocytes (%) (Auto) 10, Neutrophils # (Auto) 10.1H, Neutrophils (%) (Auto) 74, Phosphorus Level 3.3, Platelet Count 224, Potassium Level 4.2, Red Blood Count 4.75, Red Cell Distribution Width 13.8, Sodium Level 137, White Blood Count 13.7H 08/21/16 09:00: Microbiology 08/19/16 Blood Culture - Preliminary, Resulted No growth 08/19/16 Influenza Types A,B Antigen (JASON) - Final, Complete Pending Labs Laboratory Tests 08/21/16 04:07: Anion Gap 10, BUN/Creatinine Ratio 20, Basophils # (Auto) 0.0, Basophils (%) ( Auto) 0, Blood Urea Nitrogen 20, Calcium Level 9.3, Carbon Dioxide Level 23, Chloride Level 104, Creatinine 0.99, Eosinophils # (Auto) 0.0, Eosinophils (%) ( Auto) 0, Estimat Glomerular Filtration Rate > 60, Glucose Level 116, Hematocrit 43, Hemoglobin 14.4, Lymphocytes # (Auto) 2.3, Lymphocytes (%) (Auto) 17, Magnesium Level 2.3, Mean Corpuscular Hemoglobin 30, Mean Corpuscular Hemoglobin Concent 34, Mean Corpuscular Volume 90, Mean Platelet Volume 9.6, Monocytes # (Auto) 1.4, Monocytes (%) (Auto) 10, Neutrophils # (Auto) 10.1, Neutrophils (%) (Auto) 74, Phosphorus Level 3.3, Platelet Count 224, Potassium Level 4.2, Red Blood Count 4.75, Red Cell Distribution Width 13.8, Sodium Level 137, White Blood Count 13.7 08/21/16 09:00: Alpha Fetoprotein [Pending], Hepatitis B Core IgM Antibody [Pending], Hepatitis B Surface Antibody Index [Pending], Hepatitis B Surface Antigen [Pending], Hepatitis Bs Antibody Interpret [Pending], Hepatitis C Antibody [Pending] Discharge Home Medications: Active Scripts Active Reported Cetirizine HCl 10 Mg Tablet 10 Mg PO DAILY Lisinopril 5 Mg Tablet 2.5 Mg PO DAILY TAKES 1/2 OF A (5 MG) TABLET Alprazolam 0.25 Mg Tablet 0.25 Mg PO TID PRN Nitrostat (Nitroglycerin) 0.4 Mg Tab.subl 0.4 Mg SL UD PRN 1 TAB SUBLINGUALLY EVERY 5 MINUTES/ NOT TO EXCEED 3 DOSES IN 15 MINUTES Isosorbide Mononitrate ER (Isosorbide Mononitrate) 30 Mg Tab.er.24h 30 Mg PO DAILY Daliresp (Roflumilast) 500 Mcg Tablet 500 Mcg PO DAILY Plavix (Clopidogrel Bisulfate) 75 Mg Tablet 75 Mg PO DAILY Omeprazole 20 Mg Tablet.dr 40 Mg PO BID TAKES 2 (20 MG) CAPSULES Cyclobenzaprine HCl 10 Mg Tablet 10 Mg PO TID PRN Nasonex (Mometasone Furoate) 17 Gm Naspr 50 Mcg NS HS Lasix (Furosemide) 20 Mg Tablet 20 Mg PO DAILY PRN Xopenex (Levalbuterol HCl) 0.63 Mg/3 Ml Vial.neb 0.63 Mg IH TID PRN Praluent Pen (Alirocumab) 75 Mg/1 Ml Pen.injctr 75 Mg SQ BI WEEKLY Montelukast Sodium 10 Mg Tablet 10 Mg PO HS Aspirin 81 Mg Tab.chew 81 Mg PO DAILY Metoprolol Tartrate 100 Mg (Metoprolol Tartrate) 100 Mg Tablet 50 Mg PO BID TAKES 1/2 (100MG) TABLET Naproxen 500 Mg Tablet 500 Mg PO BID Symbicort Inhaler 160/4.5 Mcg (Budesonide/Formoterol Fumarate) 10.2 Gm Hfa.aer.ad 2 Puff IH BID Tramadol Hcl 50 Mg Tablet 50 Mg PO TID PRN NEEDED FOR PAIN Instructions to patient/family Please see electonic discharge instructions given to patient. Clinical Quality Measures DVT/VTE Risk/Contraindication: Risk Factor Score Per Nursin RFS Level Per Nursing on Admit: 4+=Very High Copy Copies To 2: CAILIN EDWARDS MD, MARK D MD Aug 21, 2016 11:03
--- NOTE | 2016-08-21 12:10 | Cardiology Progress Note ---
Subjective Subjective/Events-last exam Patient is feeling well. Reporting improvement in his chest pain. Groin is healing well. Review of Systems General: No Chills, No Night Sweats, No Fatigue, No Malaise, No Appetite, No Other HEENT: No Head Aches, No Visual Changes, No Eye Pain, No Ear Pain, No Dysphasia , No Sinus Congestion, No Post Nasal Drip, No Sore Throat, No Other Pulmonary: No Dyspnea, No Cough, No Pleuritic Chest Pain, No Other Cardiovascular: No: Chest Pain, Edema, Lt Headedness, Orthopnea, Other, Palpitations, Paroxysmal Noc. Dyspnea Objective-Cardiology Exam Last Set of Vital Signs Vital Signs 08/21/16 08/21/16 08/21/16 04:00 07:00 08:00 Temp 98.3 Pulse 110 Resp 16 B/P 123/68 Pulse Ox 94 O2 Delivery Room Air Capillary Refill : Less Than 3 Seconds I&O Intake and Output 08/21/16 00:00 Intake Total 2070 ml Output Total 1925 ml Balance 145 ml Intake Oral 1060 ml IV Total 1010 ml Output Urine Total 1925 ml # Voids 2 # Bowel Movements 1 General: Alert, Oriented X3, Cooperative HEENT: Atraumatic, PERRLA Neck: Supple, No JVD, No Thyromegaly Lungs: Clear to Auscultation, Normal Air Movement Heart: Regular Rate, Normal S1, Normal S2, No Murmurs Abdomen: Normal Bowel Sounds, Soft, No Tenderness, No Hepatosplenomegaly, No Masses Extremities: No Clubbing, No Cyanosis, No Edema, Normal Pulses, No Tenderness/ Swelling Skin: No Rashes, No Breakdown, No Significant Lesion Neuro: Normal Gait, Normal Speech, Strength at 5/5 X4 Ext, Normal Tone, Sensation Intact Psych/Mental Status: Mental Status NL, Mood NL Results Lab Laboratory Tests 08/21/16 04:07 A/P-Cardiology Admission Diagnosis Chest pain nonspecific etiology Shortness of breath Coronary artery disease COPD Assessment/Plan Chest pain nonspecific etiology, atypical in presentation, reporting improvement. Continue on current medication monitor. Obstructive sleep apnea, using C Pap at home. Coronary artery disease, history of CABG 3 done in 1996 in [facility] , underwent redo surgery time 1 in 1998. Had multiple interventions in the past. Most recent cardiac catheterization done May 30, 2016 revealed occluded vein graft to the circumflex. Patent vein graft RCA, patent BELTRAN to LAD. LAD was totally occluded with stent in the proximal portion. Right coronary artery totally occluded with vein graft to the right coronary artery patent with small vessel disease distally. Circumflex artery had severe stenosis of second obtuse marginal branch that is a smaller artery. Vein graft to the circumflex was occluded. 40-50 percent ostial stenosis in the left main. Angioplasty and stent appointment to the second obtuse marginal branch with excellent results using 2.5 x 12 mm Promus Premier, repeat cardiac catheterization done yesterday showing no change compared to the previous cardiac catheterization. Continue on aspirin and Plavix, continue on Imdur and monitor. Liver masses noted incidentally on CT scan, workup initiated by Dr. Huerta, followed and managed by Dr. Huerta. Hypertension, restart home medication monitor blood pressure Hyperlipidemia, intolerant to statin. Causing muscle and joint pain. Moderate bilateral carotid stenosis, ultrasound was done in November 2015, continue to monitor Tobaccoism, he has stopped smoking in December 2015, encouraged to continue with smoking cessation Strong family history of heart disease. Obesity, BMI is 31. Patient was educated on weight loss and exercise. Osteoarthritis, arthritic pain. Anxiety Clinical Quality Measures DVT/VTE Risk/Contraindication: Risk Factor Score Per Nursin RFS Level Per Nursing on Admit: 4+=Very High MOIZ MORALES MD Aug 21, 2016 12:10
[2016-08-21] MEDS ORDERED: CATHETER FLUSH 10 ML SYR IV PRN (12:45)
[2016-08-21] MEDS ORDERED: NS 100 ML (IVPB) BAG IV ONE (12:45)
[2016-08-21] MEDS ORDERED: IOHEXOL 350 MG/ML 100 ML (OMNIPAQUE 350) VIAL IV ONE (12:45)
[2016-08-21 13:23] VITALS: BP 110/58
--- NOTE | 2016-08-21 13:27 | Diagnostic Imaging Report ---
PROCEDURE: CT abdomen with and without contrast. TECHNIQUE: Multiple contiguous axial CT images of the abdomen were obtained prior to and after intravenous administration of iodinated contrast. INDICATION: Chest pain, liver mass. COMPARISON: Exam interpreted in correlation with overlapped images obtained at CT angio study performed earlier this month and correlated with ultrasound July 31, 2016. FINDINGS: Liver mass with its left lateral aspect abutting and distorting the falciform ligament in axial plane measures 4.7 x 3.6 cm. It shows a substantial degree of enhancement during the initial post-injection phase and on the delayed acquisitions is slightly heterogeneous in its enhancement but nearly isodense to the remaining normal liver parenchyma. Recent ultrasound reviewed shows the mass to be fairly well demarcated, heterogeneous but hypoechoic and showing abnormal internal color Doppler blood flow. Remaining liver parenchyma shows evidence of hepatic steatosis, unchanged when correlated with prior imaging. No other liver mass. No biliary ductal dilatation. The adrenals are negative. Tiny hiatal hernia present. The pancreas is normal. No pathological appearing abdominal mesenteric or retroperitoneal lymph nodes were found. The unobstructed kidneys are normal. The aorta is atherosclerotic with fusiform infrarenal ectasia with transverse diameter of 2.9 cm. There is no abdominal ascites. No fluid collection. No pneumatosis. No free air. Lung bases are negative. IMPRESSION: 1. Solid hyperenhancing although heterogeneous liver mass corresponds to vascularized hypoechoic lesion noted at ultrasound in a patient with fatty liver. Neoplasm including hepatocellular carcinoma could not be excluded. This does not have characteristic features at either modality of a cavernous hemangioma. While the lesion may be further characterized at Eovist-enhanced abdominal MRI, ultimately tissue correlation and biopsy would likely be necessary to exclude malignancy. 2. Atherosclerotic aortic ectasia. Abdominal CT otherwise unremarkable. Dictated by: Dictated on workstation # [id number]
[2016-08-22 06:42] LABS: HEPATITIS B SURFACE AB INDEX 4.51 mIU/mL (>=10.00); HEPATITIS B SURFACE AB INTERP Non-Immune (Immune)
[2016-08-22 06:49] LABS: ALPHA-FETO PROTEIN MARKER 3.1 ng/mL (1.5-10.0)
--- NOTE | 2016-08-22 09:09 | CARDIAC CATHETERIZATION ---
PROCEDURE PHYSICIAN: MOIZ MORALES DATE OF PROCEDURE: 08/20/2016 INDICATION: Coronary artery disease. BRIEF HISTORY: Mrs. Carrillo is a 70-year-old gentleman with history of extensive cardiac history with coronary artery disease, admitted with acute chest pain, he was scheduled for cardiac stress test tomorrow. He started having chest pain this afternoon. He had some relief with nitroglycerin. The patient started having pain waxing and waning the whole afternoon. The decision was made to proceed with cardiac catheterization and possible PTCA. PROCEDURE NOTE: After explaining the procedure to the patient, all pros and cons were explained. All questions were answered. The patient signed consent, then he was placed on the cardiac catheterization laboratory. The right groin was prepped in a sterile fashion. Local anesthesia applied to the right groin. 6-Yoruba sheath was placed in the right femoral artery. Sedrick left catheter was used to access left coronary system. Sedrick right was used to access the vein graft. The patient is known to have occluded right coronary artery. I used a BELTRAN catheter to reevaluate the mammary artery. Then pigtail catheter advanced to the left ventricular cavity. Left ventriculogram was done. Pullback LV to aorta was done. At the end of the procedure, sheath was removed. Mynx device deployed. Hemostasis achieved. FINDINGS: HEMODYNAMICS: LV pressure 150/7, end-diastolic pressure of 7, aortic pressure 147/58 mean of 92. No significant gradient across the aortic valve. ANATOMY: 1. Left main coronary artery has 50% proximal stenosis. Moderate disease. 2. Left anterior descending artery is totally occluded proximally. The BELTRAN to the LAD is patent. The LAD by itself tapered down to a very small artery occluded distally beyond the anastomosis point. Receiving collateral from the circumflex system. 3. Left circumflex artery is moderate in size. Stent is patent in the second obtuse marginal branch. The first obtuse marginal branch is occluded, fairly small artery. 4. Right coronary artery is known to be occluded. The vein graft to the right coronary artery is patent. 5. Vein graft angiogram: The lower vein graft is the vein graft to the right coronary artery is patent with small vessel disease distally. 6. The upper vein graft is known to be occluded. 7. BELTRAN angiogram: The BELTRAN to the LAD is patent. The LAD tapered down into a very small artery and occluded distally beyond the anastomosis point. 8. Left ventriculogram was done in the right anterior oblique position. The left ventricle is normal in size with normal contractility. Systolic function appeared to be normal. Estimated ejection fraction 60%. IN CONCLUSION: 1. Patent BELTRAN to the LAD with occluded LAD distally, fairly small artery not amendable to intervention, receiving collaterals from the left circumflex system. 2. Patent stent in the second obtuse marginal branch filling collateral to the LAD. The first obtuse marginal branch is a fairly small artery has severe disease diffusely. 3. Patent vein graft to the right coronary artery that is a large dominant artery with small vessel disease distally. 4. Normal left ventricular size with preserved systolic function. Estimated ejection fraction 60%. 5. 50% stenosis in the left main coronary artery, treated medically at this point. DISCUSSION AND RECOMMENDATION: Maximizing medical therapy is recommended at this point. I will continue monitoring. Further recommendation will follow based on his progression. Job ID: [id number] Dictated Date: 08/20/2016 18:43:00 Billing Associate Date: 08/22/2016 09:00:24 / mayelin
== END 2016-08-21 13:30 | disposition home or self-care (01) | DRG 287 ==
LOC: ER 18:05 → EDUNIT# 18:05 → ICU 21:22 → 4TH 08-20 13:09 → ICU 08-20 14:32
PROVIDERS: ADMIT Internal Medicine Cardiovascular Disease; ATTEND Internal Medicine
PROC: 4A023N7 Measurement of Cardiac Sampling and Pressure, Left Heart, Percutaneous Approach (ICD-10-PCS; principal; 2016-08-20)
PROC: B2151ZZ Fluoroscopy of Left Heart using Low Osmolar Contrast (ICD-10-PCS; 2016-08-20)
PROC: B2111ZZ Fluoroscopy of Multiple Coronary Arteries using Low Osmolar Contrast (ICD-10-PCS; 2016-08-20)
PROC: B2181ZZ Fluoroscopy of Left Internal Mammary Bypass Graft using Low Osmolar Contrast (ICD-10-PCS; 2016-08-20)
DX: I25.110 Atherosclerotic heart disease of native coronary artery with unstable angina pectoris (principal); J44.1 Chronic obstructive pulmonary disease with (acute) exacerbation; Z87.891 Personal history of nicotine dependence; I25.2 Old myocardial infarction; E78.5 Hyperlipidemia, unspecified; I10 Essential (primary) hypertension; K21.9 Gastro-esophageal reflux disease without esophagitis; M19.90 Unspecified osteoarthritis, unspecified site; Z95.1 Presence of aortocoronary bypass graft; Z95.5 Presence of coronary angioplasty implant and graft; H91.90 Unspecified hearing loss, unspecified ear; G47.33 Obstructive sleep apnea (adult) (pediatric); I65.23 Occlusion and stenosis of bilateral carotid arteries; Z82.49 Family history of ischemic heart disease and other diseases of the circulatory system; E66.01 Morbid (severe) obesity due to excess calories; F41.9 Anxiety disorder, unspecified; Z68.31 Body mass index [BMI] 31.0-31.9, adult; R16.0 Hepatomegaly, not elsewhere classified
CPT/HCPCS: 36415; 71010; 71020; 71275; 74170; 80048; 80053; 80061; 81000; 82105; 83735; 83874; 83880; 84100; 84484; 85007; 85025; 85027; 85610; 85730; 86705; 86706; 86803; 87040; 87081; 87340; 87804; 93005; 93041; 93459; 94640; 94664; 94761; 96372; 96374; 96375

== ENCOUNTER → 2016-09-12 | Outpatient (CLI) | payer MEDICARE, OTHER ==
[~2016-09-12] MED LIST changes: +ALBU0.63 IH; +ALBU90AE IH; +ALPR0.254 PO; +CETI10TA17 PO; +CLOP75TA69 PO; +CYCL10TA9 PO; +FURO-125 PO; +LEVA0.6320 IH; +LISI-556 PO; +LISI10TA2 PO; +MMT17NA NS; +OMEP20TA7 PO; +ROFL500T4 PO
--- OUTSIDE RECORDS SUMMARY | 2016-09-12 15:30 | XMS REPORT | Continuity of Care Document ---
Author Author [facility] Organization [facility] Address Unknown Phone Unavailable Care Team Providers Care Or Nurse Manager Name Role Phone CAILIN EDWARDS MD PCP Insurance Providers Payer Name Policy Number Subscriber Name Relationship [employer] [id number] Ximena Parra 18 Self / Same As Patient Comm Crossover Enter Ins Name [id number] Ximena Parra 18 Self / Same As Patient Advance Directives Directive Response Recorded Date/Time Advance Directives No 05/30/16 7:03am Health Care Power of Jockey Agent No 05/30/16 7:03am Organ Donor No 05/30/16 [...] Tab Oral Twice A Day Discontinued Tiotropium [place] 1 Inh Aerp, 0 Inhalation Daily 08/27/12 [...] Type Severity Reaction Status Last Updated hydrocodone ([id number]) Adverse Reaction Unknown NIGHTMARES Active Immunizations No immunization records. Vital Signs Acute Vital Signs Vital Response Date/Time Temperature (Fahrenheit) 97.1 degrees F (97.6 - 99.5) 05/31/2016 9:38am Temperature (Calculated Celsius) 36.07873 degrees C (36.4 - 37.5) 05/31/2016 8:10am [...] 0.00 inches 05/30/2016 7:03am Height (Calculated Centimeters) 182.952943 cm 05/30/2016 7:03am Weight (Pounds) 238 pounds 05/30/2016 7:03am Weight (Ounces) 0.0 oz 05/30/2016 7:03am Weight (Calculated Grams) 283600.99 gm 05/30/2016 7:03am Weight (Calculated Kilograms) 107.907084 kilograms 05/30/2016 7:03am Calculated BMI 32.3 05/30/2016 [...] Attending Provider Departed [facility] 05/30/16 6:43am 9:36am MOIZ ROMANO MD Registered Clinic [facility] 05/24/16 12:23pm ANDREAS TREADWELL APRN Registered Clinic [facility] 05/23/16 3:25pm ANDREAS TREADWELL APRN Registered Clinic [facility] 05/23/16 8:05am MOIZ ROMANO MD Registered Clinic [facility] 05/09/16 4:52pm CAILIN EDWARDS MD
[2016-09-13 07:38] LABS: ALPHA-FETO PROTEIN MARKER 3.5 ng/mL (1.5-10.0)
== END ==
LOC: LAB 15:26
PROVIDERS: ATTEND Internal Medicine Gastroenterology
DX: K76.89 Other specified diseases of liver (principal); R16.0 Hepatomegaly, not elsewhere classified; R93.8 Abnormal findings on diagnostic imaging of other specified body structures
CPT/HCPCS: 36415; 82105; 82378

== ENCOUNTER → 2016-09-27 | Outpatient (CLI) | payer MEDICARE, OTHER ==
--- OUTSIDE RECORDS SUMMARY | 2016-09-27 09:21 | XMS REPORT | Continuity of Care Document ---
Author Author [facility] Organization [facility] Address Unknown Phone Unavailable Care Team Providers Care Skinning Machine Feeder Name Role Phone CAILIN EDWARDS MD PCP Insurance Providers Payer Name Policy Number Subscriber Name Relationship [employer] [id number] Ximena Parra 18 Self / Same As Patient Comm Crossover Enter Ins Name [id number] Ximena Parra 18 Self / Same As Patient Advance Directives Directive Response Recorded Date/Time Advance Directives No 05/30/16 7:03am Health Care Power of Marker Hand No 05/30/16 7:03am Organ Donor No 05/30/16 [...] Tab Oral Twice A Day Discontinued Tiotropium [place] 1 Inh Aerp, 0 Inhalation Daily 08/27/12 [...] Type Severity Reaction Status Last Updated hydrocodone ([id number]) Adverse Reaction Unknown NIGHTMARES Active Immunizations No immunization records. Vital Signs Acute Vital Signs Vital Response Date/Time Temperature (Fahrenheit) 97.1 degrees F (97.6 - 99.5) 05/31/2016 9:38am Temperature (Calculated Celsius) 36.00184 degrees C (36.4 - 37.5) 05/31/2016 8:10am [...] 0.00 inches 05/30/2016 7:03am Height (Calculated Centimeters) 182.009829 cm 05/30/2016 7:03am Weight (Pounds) 238 pounds 05/30/2016 7:03am Weight (Ounces) 0.0 oz 05/30/2016 7:03am Weight (Calculated Grams) 627475.99 gm 05/30/2016 7:03am Weight (Calculated Kilograms) 107.380185 kilograms 05/30/2016 7:03am Calculated BMI 32.3 05/30/2016 [...] Attending Provider Departed [facility] 05/30/16 6:43am 9:36am MOIZ ROMANO MD Registered Clinic [facility] 05/24/16 12:23pm ANDREAS TREADWELL APRN Registered Clinic [facility] 05/23/16 3:25pm ANDREAS TREADWELL APRN Registered Clinic [facility] 05/23/16 8:05am MOIZ ROMANO MD Registered Clinic [facility] 05/09/16 4:52pm CAILIN EDWARDS MD
--- NOTE | 2016-09-27 09:49 | Diagnostic Imaging Report ---
INDICATION: Productive cough, shortness of air. FINDINGS: Frontal and lateral views of the chest demonstrates stable COPD changes. There are no focal infiltrates. Sternotomy changes are present with heart size at the upper limits of normal. Vascularity is normal. There are no effusions. IMPRESSION: COPD changes are again identified with no acute findings. Dictated by: Dictated on workstation # [id number]
== END ==
LOC: RAD 09:17
PROVIDERS: ATTEND Nurse Practitioner
DX: J44.9 Chronic obstructive pulmonary disease, unspecified (principal)
CPT/HCPCS: 71020

== ENCOUNTER 2016-10-30 08:00 | Outpatient (RCR) | payer MEDICARE, OTHER ==
--- OUTSIDE RECORDS SUMMARY | 2016-08-06 10:14 | XMS REPORT | Continuity of Care Document ---
Author Author [facility] Organization [facility] Address Unknown Phone Unavailable Care Team Providers Care Anesthesiologists' Assistant Name Role Phone CAILIN EDWARDS MD PCP Insurance Providers Payer Name Policy Number Subscriber Name Relationship Wps Medicare [id number] Ximena Parra 18 Self / Same As Patient Comm Crossover Enter Ins Name [id number] Ximena Parra 17 Self / Same As Patient Advance Directives Directive Response Recorded Date/Time Advance Directives No 05/30/16 7:03am Health Care Power of Third Officer No 05/30/16 7:03am Organ Donor No 05/30/16 [...] Tab Oral Twice A Day Discontinued Tiotropium [place] 1 Inh Aerp, 0 Inhalation Daily 08/27/12 [...] Type Severity Reaction Status Last Updated hydrocodone ([id number]) Adverse Reaction Unknown [place] Active Immunizations No immunization records. Vital Signs Acute Vital Signs Vital Response Date/Time Temperature (Fahrenheit) 97.1 degrees F (97.6 - 99.5) 05/31/2016 9:38am Temperature (Calculated Celsius) 36.59886 degrees C (36.4 - 37.5) 05/31/2016 8:10am [...] 0.00 inches 05/30/2016 7:03am Height (Calculated Centimeters) 182.734817 cm 05/30/2016 7:03am Weight (Pounds) 238 pounds 05/30/2016 7:03am Weight (Ounces) 0.0 oz 05/30/2016 7:03am Weight (Calculated Grams) 966946.99 gm 05/30/2016 7:03am Weight (Calculated Kilograms) 107.489165 kilograms 05/30/2016 7:03am Calculated BMI 32.3 05/30/2016 [...] Attending Provider Departed [facility] 05/30/16 6:43am 9:36am MOIZ ROMANO MD Registered Clinic [facility] 05/24/16 12:23pm ANDREAS TREADWELL APRN Registered Clinic [facility] 05/23/16 3:25pm ANDREAS TREADWELL APRN Registered Clinic [facility] 05/23/16 8:05am MOIZ ROMANO MD Registered Clinic [facility] 05/09/16 4:52pm CAILIN EDWARDS MD
== END 2016-11-04 | disposition home or self-care (01) ==
LOC: PULM 08:00
PROVIDERS: ATTEND Internal Medicine Critical Care Medicine
DX: G47.33 Obstructive sleep apnea (adult) (pediatric) (principal); J43.9 Emphysema, unspecified; R06.02 Shortness of breath
CPT/HCPCS: 99211

== ENCOUNTER 2016-11-08 08:30 | Outpatient (RCR) | payer MEDICARE, OTHER | END 2017-02-06 | disposition home or self-care (01) | LOC: PULM 08:30 | PROVIDERS: ATTEND Internal Medicine Critical Care Medicine | DX: G47.33 Obstructive sleep apnea (adult) (pediatric) (principal); J43.9 Emphysema, unspecified; R06.02 Shortness of breath ==

== ENCOUNTER 2016-12-19 20:00 | Outpatient (CLI) | payer MEDICARE, OTHER | END 2016-12-20 06:10 | disposition home or self-care (01) | LOC: SLEEP 20:00 | PROVIDERS: ATTEND Internal Medicine Critical Care Medicine | DX: G47.33 Obstructive sleep apnea (adult) (pediatric) (principal); J44.9 Chronic obstructive pulmonary disease, unspecified; R06.02 Shortness of breath | CPT/HCPCS: 95811 ==

== ENCOUNTER 2017-02-22 19:11 | Emergency (ER) | payer MEDICARE, OTHER ==
[~2017-02-22] VITALS: Ht 182.9 cm; Wt 106.6 kg
--- OUTSIDE RECORDS SUMMARY | 2017-02-22 19:20 | XMS REPORT | Clinical Summary ---
Author Author [facility] Organization [facility] Address Unknown Phone Unavailable Care Team Providers Care Teletype Installer Name Role Phone PCP Unavailable Source Comments Some departments are not documenting in the electronic medical record. If you do not see the information that you expected, contact Release of Information in the Health Information Management department at [phone] for further assistance in locating additional records.[facility] Allergies No Known Allergies Current Medications Prescription Sig. Disp. Refills Start End Date Status Date cetirizine (ZYRTEC) 10 mg Take 10 mg by mouth every Active tablet morning. isosorbide mononitrate SR Take 30 mg by mouth every Active (IMDUR) 30 mg tablet morning. mometasone (NASONEX) 50 Apply 2 Sprays to each Active mcg/actuation nasal spray nostril as directed daily. nitroglycerin (NITROSTAT) Place 0.4 mg under tongue Active 0.4 mg tablet every 5 minutes as needed for Chest Pain. Max of 3 tablets, call 911. alirocumab (PRALUENT PEN) Inject 75 mg under the Active 75 mg/mL injectable PEN skin every 14 days. montelukast (SINGULAIR) Take 10 mg by mouth at Active 10 mg tablet bedtime daily. acetaminophen (TYLENOL) Take 500 mg by mouth Active 500 mg tablet every 6 hours as needed for Pain. Max of 4,000 mg of acetaminophen in 24 hours. albuterol (VENTOLIN HFA, Inhale 2 Puffs by mouth Active PROAIR HFA, PROVENTIL into the lungs every 6 HFA) 90 mcg/actuation hours as needed for inhaler Wheezing or Shortness of Breath. Shake well before use. aspirin EC 81 mg tablet Take 81 mg by mouth Active daily. Take with food. cyclobenzaprine Take 10 mg by mouth three Active (FLEXERIL) 10 mg tablet times daily as needed for Muscle Cramps. lisinopril (PRINIVIL; Take 5 mg by mouth daily. Active ZESTRIL) 10 mg tablet metoprolol tartrate Take 50 mg by mouth twice Active (LOPRESSOR) 50 mg tablet daily. budesonide/formoterol Inhale 2 Puffs by mouth Active (SYMBICORT HFA) 160/4.5 into the lungs twice mcg inhalation daily. traMADol (ULTRAM) 50 mg Take 50 mg by mouth every Active tablet 6 hours as needed for Pain. ALPRAZolam (XANAX) 0.25 Take 0.25 mg by mouth Active mg tablet three times daily as needed for Anxiety. clopiDOGrel (PLAVIX) 75 Take 75 mg by mouth Active mg tablet daily. psyllium (METAMUCIL) 3.4 Take by mouth at bedtime Active gram packet daily. albuterol 0.5% Inhale 2.5 mg solution by Active (PROVENTIL; VENTOLIN) 2.5 nebulizer as directed mg/0.5 mL nebulizer every 6 hours as needed solution for Shortness of Breath or Wheezing. furosemide (LASIX) 20 mg Take 20 mg by mouth daily Active tablet as needed. naproxen (NAPROSYN) 500 Take 500 mg by mouth Active mg tablet twice daily with meals. Take with food. pantoprazole DR Take 40 mg by mouth Active (PROTONIX) 40 mg tablet daily. oxyCODONE (ROXICODONE, Take 1-2 Tabs by mouth 30 Tab 0 02/06/20 Active OXY-IR) 5 mg every 4 hours as needed 17 tabletIndications: PAIN for Pain Indications: PAIN ondansetron (ZOFRAN) 4 mg Take 1 Tab by mouth every 20 Tab 0 02/06/20 Active tabletIndications: 8 hours as needed. 17 PREVENTION OF Indications: PREVENTION POST-OPERATIVE NAUSEA AND OF POST-OPERATIVE NAUSEA VOMITING AND VOMITING levalbuterol (XOPENEX) Inhale 0.63 mg by mouth 01/31/20 Discontin 0.63 mg/3 mL nebu into the lungs as Needed. 17 ued Psyllium 3.4 gram/5.8 Take 1 % by mouth. 01/31/20 Discontin gram powd 17 ued Active Problems Problem Noted Date Hepatocellular carcinoma (HCC) 01/28/2017 Overview: --Was undergoing routine surveillance when he was found to have a 4.7 x 3.6 cm mass in the left lobe of the liver on ultrasound. --August 2016 at ultrasound-guided needle biopsy which later showed benign hepatocytes and blood clot nondiagnostic. This was reviewed at [facility] and later showed well-differentiated hepatocellular carcinoma. Alpha-fetoprotein 2.5 --CT 12/29 Focal enhancing hepatic mass in the anterior aspect of segment 4. This is biopsy-proven hepatocellular carcinoma by report. No other focal liver lesions are seen. Mild hepatic steatosis with normal size spleen. No obvious portosystemic varices are seen, and there is no ascites. Moderate aortic atherosclerosis with minimal infrarenal abdominal aortic aneurysm measuring 3.0 cm diameter. Encounters Date Type Specialty Care Team Description 02/05/2017 [facility] Radiology Nhan Cruz MD Encounter Lorenza Cabello RN 02/05/2017 [facility] Radiology Omi Saeed MD Encounter Mandie Snow RN Parise, Michelle Lemons, Steven, MD 02/05/2017 Procedure Pass Radiology 02/05/2017 Ancillary Radiology Nhan Cruz MD HCC (hepatocellular Orders carcinoma) (HCC) 02/05/2017 Orders Only Radiology Billie Snyder RN Hepatocellular carcinoma (HCC) (Primary Dx) 02/05/2017 Orders Only Radiology Billie Snyder RN 01/31/2017 Telephone Hepatology Karina Barajas Follow Up 01/30/2017 Office Visit Oncology Omi Saeed MD Hepatocellular carcinoma Gonsalo Rabago MD (HCC) (Primary Dx) 01/30/2017 PAC Office Anesthesiology Omi Saeed MD Hepatocellular carcinoma Visit (HCC) 01/30/2017 [facility] Radiology Omi Saeed MD Encounter 01/30/2017 Office Visit Hepatology Omi Saeed MD Hepatocellular carcinoma (HCC) (Primary Dx) 01/30/2017 Hospital Radiology Omi Saeed MD Encounter 01/30/2017 Anesthesia Radiology Jessica Cordero APRN Event 01/30/2017 Orders Only Radiology Nhan Cruz MD 01/30/2017 Prep for Case Hepatology Omi Saeed MD 01/30/2017 Orders Only Radiology Monalisa Felton RN Hepatocellular carcinoma (HCC) (Primary Dx) 01/24/2017 Telephone Hepatology Omi Saeed MD Patient Reminder Call 01/18/2017 Ancillary Hepatology Omi Saeed MD HCC (hepatocellular Orders carcinoma) (HCC) (Primary Dx) 01/18/2017 Telephone Radiology Billie Snyder RN 01/18/2017 Ancillary Radiology Nhan Cruz MD HCC (hepatocellular Orders carcinoma) (HCC) (Primary Dx) 01/16/2017 Telephone Oncology Gonsalo Rabago MD Navigation Assessment 01/16/2017 Telephone Hepatology Lois Tidwell APRN Follow-up Phone Call 01/10/2017 Hospital Omi Saeed MD Malignant neoplasm of Encounter hepatic flexure (HCC) 01/09/2017 Telephone Hepatology Omi Saeed MD Records Request 01/07/2017 Hospital Radiology Corona Dover MD Encounter 01/07/2017 Hospital Omi Saeed MD Liver cell carcinoma Encounter (HCC) 01/07/2017 Office Visit Transplant Surgery Brandin Aquino MD Liver mass (Primary Dx) 01/07/2017 Office Visit Hepatology Omi Saeed MD Hepatocellular carcinoma (HCC) (Primary Dx);Encounter for observation for other suspected diseases and conditions ruled out ;Chronic obstructive pulmonary disease, unspecified COPD type;Abnormal finding of blood chemistry ;Other specified disorders of carbohydrate metabolism (HCC) 01/07/2017 Telephone Hepatology Omi Saeed MD Other 01/07/2017 Telephone Hepatology Omi Saeed MD Other (CT chest order) 01/07/2017 Procedure Pass Radiology 12/20/2016 Telephone Transplant Surgery Houston Howe, template clerk from Last 3 Months Social History Tobacco Use Types Packs/Day Years Used Date Former Smoker Cigarettes 1 50 Quit: 12/17/2015 Smokeless Tobacco: Never Used Tobacco Cessation: Counseling Given: Yes Alcohol Use Drinks/Week oz/Week Comments No 0 Standard 0.0 drinks or equivalent Sex Assigned at Date Recorded Not on file Last Filed Vital Signs Vital Sign Reading Time Taken Blood Pressure 166/70 02/05/2017 6:15 PM CDT Pulse 114 02/05/2017 6:15 PM CDT Temperature 36.5 C (97.7 F) 02/05/2017 4:40 PM CDT Respiratory Rate 16 01/30/2017 9:02 AM CDT Oxygen Saturation 95% 02/05/2017 6:15 PM CDT Inhaled Oxygen - - Concentration Weight 109.3 kg (241 lb) 02/05/2017 7:45 AM CDT Height 182.9 cm (6') 02/05/2017 7:45 AM CDT Body Mass Index 32.69 02/05/2017 7:45 AM CDT Plan of Treatment Date Type Specialty Care Team Description 03/05/2017 Surgery Hawa Hughes MD ESOPHAGOGASTRODUODENOSCOP [address] [place], [place] [id number] 03/05/2017 Procedure Pass 03/05/2017 Hospital Omi Saeed MD Esophageal varices (HCC) Encounter [address] [place] [address] Health Maintenance Due Date Last Done Comments PHYSICAL (COMPREHENSIVE) 12/09/1952 EXAM PERTUSSIS VACCINE 12/09/1955 TETANUS VACCINE 1961 COLORECTAL CANCER 1994 SCREENING SHINGLES VACCINE 2004 ABDOMINAL AORTIC ANEURYSM 2009 SCREENING PREVNAR/PNEUMOVAX (#1) 2009 INFLUENZA VACCINE 03/15/2017 HEPATITIS C SCREENING Completed 01/07/2017 Implants Implanted Type Area Heavy Mobile Equipment Operator Device Expiration Model / Identifier Date Serial / Lot Sphere Embolization Yellow Liver BIOSPHERE MED [id number] 04/13/2019 S220 / Embosphere 100-300um Microsphere - 0621 / [facility] [id number] Implanted: Qty: 1 on 02/05/2017 by Rigoberto Gottlieb MD Sphere Embolization Yellow Liver BIOSPHERE MED [id number] 04/13/2019 [id number] / Embosphere 100-300um Microsphere - 0621 / [facility] [id number] Implanted: Qty: 1 on 02/05/2017 by Rigoberto Gottlieb MD Device Closure 70cm 6fr Angio-Seal Right: ST RAMIN MED [id number] / Vip .035in Vascular - Sn/A Groin N/A / Implanted: Qty: 1 on 02/05/2017 by [id number] Rigoberto Gottlieb MD Lc Bead Brenda 70 - 150 Black Label - Liver BIOCOMPATIBLES [id number] / Sn/A INC-IR RADIOLOG N/A / Implanted: Qty: 2 on 02/05/2017 by Rigoberto Sims MD RECORDED Procedures Procedure Name Priority Date/Time Associated Diagnosis Comments ECG-SCAN 02/19/2017 Results for this 12:16 PM CDT procedure are in the results section. from Last 3 Months Results * ECG-SCAN (02/19/2017 12:16 PM) Narrative Ordered by an unspecified provider. * CT GUIDE FOR RF ABLATION PERC (02/05/2017 12:56 PM) Specimen Performing Laboratory [facility] RAD RESULTS Impressions Successful CT-guided microwave ablation of the left lobe hepatocellular carcinoma following chemoembolization. The patient is to have a follow-up CT scan in one month to evaluate treatment response. Finalized by Tim Cruz M.D. on 02/06/2017 8:19 AM. Dictated by Tim Cruz M.D. on 02/06/2017 7:[address]-guided microwave ablation of hepatocellular carcinoma Clinical history: Large solitary left lobe hepatocellular carcinoma status post chemoembolization Technique and findings: Nhan Temple M.D., the attending radiologist, was present for the procedure, personally reviewed the images, and formulated the interpretations and opinions expressed in this report. Following the chemoembolization procedure, the patient was placed under general endotracheal anesthesia and on the CT table in the supine position. Multiple contiguous axial images of the abdomen were obtained for treatment planning purposes. The images demonstrated a large partially exophytic hepatocellular carcinoma with dense tumor staining from the previous embolization procedure. The lesion measures approximately 5.5 to 6 cm in maximal diameter. The anterior abdomen was then prepped and draped in the usual sterile fashion. 2% lidocaine was used to anesthetize the skin, and a dermatotomy incision was made. A 13- gauge Emprint microwave ablation needle was then advanced into the lesion under CT guidance. The lateral aspect of the lesion was treated using 100 W of power for 10 minutes of ablation time. The needle was then retracted slowly and the medial aspect of the lesion was treated using 100 W of power for 5 minutes of ablation time. The needle was then removed and a sterile dressing was applied. A CT scan through the abdomen following the procedure demonstrated no perihepatic hemorrhage. The patient was extubated and taken to the PACU in stable condition. Procedure Note Interface, Radiant Results - 02/06/2017 8:[address]-guided microwave ablation of hepatocellular carcinoma Clinical history: Large solitary left lobe hepatocellular carcinoma status post chemoembolization Technique and findings: INhan M.D., the attending radiologist, was present for the procedure, personally reviewed the images, and formulated the interpretations and opinions expressed in this report. Following the chemoembolization procedure, the patient was placed under general endotracheal anesthesia and on the CT table in the supine position. Multiple contiguous axial images of the abdomen were obtained for treatment planning purposes. The images demonstrated a large partially exophytic hepatocellular carcinoma with dense tumor staining from the previous embolization procedure. The lesion measures approximately 5.5 to 6 cm in maximal diameter. The anterior abdomen was then prepped and draped in the usual sterile fashion. 2% lidocaine was used to anesthetize the skin, and a dermatotomy incision was made. A 13- gauge [employer] microwave ablation needle was then advanced into the lesion under CT guidance. The lateral aspect of the lesion was treated using 100 W of power for 10 minutes of ablation time. The needle was then retracted slowly and the medial aspect of the lesion was treated using 100 W of power for 5 minutes of ablation time. The needle was then removed and a sterile dressing was applied. A CT scan through the abdomen following the procedure demonstrated no perihepatic hemorrhage. The patient was extubated and taken to the PACU in stable condition. IMPRESSION Successful CT-guided microwave ablation of the left lobe hepatocellular carcinoma following chemoembolization. The patient is to have a follow-up CT scan in one month to evaluate treatment response. Finalized by Tim Cruz M.D. on 02/06/2017 8:19 AM. Dictated by Tim Cruz M.D. on 02/06/2017 7:49 AM. * IR BODY EMBOLIZATION (02/05/2017 10:05 AM) Specimen Performing Laboratory [facility] RAD RESULTS Impressions 1.Successful chemoembolization of hepatic tumor as described using approximately 100 mg of Doxorubicin and 2 vials of 100-300 micrometer bland embospheres. PLAN: Transported to CT scanner for concurrent CT guided microwave ablation of the enhancing liver mass. Follow up with MRI in one month to assess treatment response and if further treatment is necessary. Approved by Rigoberto Gottlieb M.D. on 02/05/2017 11:29 AM By my electronic signature, I attest that I have personally reviewed the images for this examination and formulated the interpretations and opinions expressed in this report Finalized by Tim Cruz M.D. on 02/05/2017 1:57 PM. Dictated by Rigoberto Gottlieb M.D. on 02/05/2017 10:24 AM. Narrative Ultrasound and fluoroscopic guided transarterial chemoembolization with drug eluting and bland beads 1. Celiac axis angiogram 2. Left hepatic artery angiogram 3. Superselective angiogram of a segment 4 branch of the replaced left hepatic artery 4. Superselective chemoembolization of the replaced left hepatic artery 5. Post embolization angiogram of the the replaced left hepatic artery 6. Abdominal aortogram. 7. Right common femoral artery angiogram INDICATION:Hepatocellular Carcinoma MEDICATIONS: I was personally responsible for the administration of moderate sedation services during the procedure performed and I confirm requirements described in CPT section on moderate sedation were followed, including the use of an independent trained observer who had no other duties during the procedure. The total supervised sedation time was 60 minutes.See nursing log for complete details; the drugs utilized were:Versed 2 mg IV, fentanyl 100 ug IV , morphine 2 mg IV, Toradol 30 mg IV. OPERATORS: Nhan Cruz M.D., Rigoberto Gottlieb M.D. ACCESS SITE:Right common femoral artery CONTRAST: 110 mL nonionic TECHNIQUE: I, Nhan Cruz M.D, the attending radiologist, was present for the critical and morales portions of the procedure with a midlevel, resident, and/or fellow participating.Overlapping portions were non morales and I was immediately available.I interpret the critical and morales portion of this procedure to have been needle access. The risks, benefits, and alternatives to the procedure and sedation were explained to the patient, and written informed consent obtained. With the patient in the supine position, the right groin was prepped and draped in the usual aseptic manner. The common femoral artery was interrogated demonstrating patency.The skin and subcutaneous tissue overlying the artery was infiltrated with 2% lidocaine for local anesthetic. The common femoral artery was accessed with a micropuncture needle. Needle entering the artery was documented and sent to PACS. A 0.018 wire was advanced through the needle into the artery. The needle was exchanged for 4 Filipino transitional catheter. The wire and inner dilator were removed and 0.035 Bentson wire was advanced to the artery. The transitional catheter was exchanged for a 5 Filipino vascular sheath attached to a heparinized, pressurized bag of saline. A 5 Fr catheter was advanced over the wire, formed in the aorta and used to select the celiac axis and digital subtraction angiography was performed. Using a pro great microcatheter and a 0.014" microwire, the replaced left hepatic artery distal to the origin of the left gastric artery was selected. Digital subtraction angiography was performed. The catheter was further selectively advanced into the segment 4 branch of the replaced left hepatic artery and Digital subtraction angiography was performed. The segment 4 branch of the replaced left hepatic artery was then embolized using a mixture of contrast, saline, and doxorubicin eluting 70-150 micrometer LC Brenda Beads. Post-embolization arteriogram of the replaced left hepatic artery was performed. The catheter was retracted slightly and additional embolization using 100-300 um bland microspheres was performed. Post embolization arteriogram of the replaced left hepatic artery was performed. The microcatheter was removed and the 5 Filipino catheter was repositioned into the lower abdominal aorta. Digital subtraction angiography of the aortic bifurcation and right iliac vessels was performed. The catheter was then removed and disposed of appropriately. The right common femoral artery access site was closed using an Angio-Seal closure device. Hemostasis was achieved. The patient tolerated the procedure well and left the angiography suite in stable condition without any immediate postprocedural complications. FINDINGS: 1. Diagnostic angiography was performed to evaluate for extrahepatic vascular supply, extent of disease, and tumor progression since most recent cross- sectional imaging.Celiac axis angiogram demonstrates a replaced left hepatic artery originating from the left gastric artery. 2. Replaced left hepatic artery angiogram further demonstrates the vascular supply to the hepatic lesions 3. Superselective angiogram of a segment segment 4 branch of the left hepatic artery further demonstrates the vascular supply to the hepatic lesions and confirms catheter position prior to embolization 4. Superselective chemoembolization of segment 4 hepatic artery with approximately 100 mg Doxorubicin and 2 vials of 100-300 um bland microspheres. 5. Post embolization angiogram of the replaced left hepatic artery demonstrates decreased flow to the targeted lesions. Procedure Note Interface, Radiant Results - 02/05/2017 2:00 PM CDT Ultrasound and fluoroscopic guided transarterial chemoembolization with drug eluting and bland beads 1. Celiac axis angiogram 2. Left hepatic artery angiogram 3. Superselective angiogram of a segment 4 branch of the replaced left hepatic artery 4. Superselective chemoembolization of the replaced left hepatic artery 5. Post embolization angiogram of the the replaced left hepatic artery 6. Abdominal aortogram. 7. Right common femoral artery angiogram INDICATION: Hepatocellular Carcinoma MEDICATIONS: I was personally responsible for the administration of moderate sedation services during the procedure performed and I confirm requirements described in CPT section on moderate sedation were followed, including the use of an independent trained observer who had no other duties during the procedure. The total supervised sedation time was 60 minutes. See nursing log for complete details; the drugs utilized were: Versed 2 mg IV, fentanyl 100 ug IV, morphine 2 mg IV, Toradol 30 mg IV. OPERATORS: Nhan Cruz M.D., Rigoberto Gottlieb M.D. ACCESS SITE: Right common femoral artery CONTRAST: 110 mL nonionic TECHNIQUE: I, Nhan Cruz M.D, the attending radiologist, was present for the critical and morales portions of the procedure with a midlevel, resident, and/or fellow participating. Overlapping portions were non morales and I was immediately available. I interpret the critical and morales portion of this procedure to have been needle access. The risks, benefits, and alternatives to the procedure and sedation were explained to the patient, and written informed consent obtained. With the patient in the supine position, the right groin was prepped and draped in the usual aseptic manner. The common femoral artery was interrogated demonstrating patency. The skin and subcutaneous tissue overlying the artery was infiltrated with 2% lidocaine for local anesthetic. The common femoral artery was accessed with a micropuncture needle. Needle entering the artery was documented and sent to PACS. A 0.018 wire was advanced through the needle into the artery. The needle was exchanged for 4 Filipino transitional catheter. The wire and inner dilator were removed and 0.035 Bentson wire was advanced to the artery. The transitional catheter was exchanged for a 5 Filipino vascular sheath attached to a heparinized, pressurized bag of saline. A 5 Fr catheter was advanced over the wire, formed in the aorta and used to select the celiac axis and digital subtraction angiography was performed. Using a pro great microcatheter and a 0.014" microwire, the replaced left hepatic artery distal to the origin of the left gastric artery was selected. Digital subtraction angiography was performed. The catheter was further selectively advanced into the segment 4 branch of the replaced left hepatic artery and Digital subtraction angiography was performed. The segment 4 branch of the replaced left hepatic artery was then embolized using a mixture of contrast, saline, and doxorubicin eluting 70-150 micrometer LC Brenda Beads. Post-embolization arteriogram of the replaced left hepatic artery was performed. The catheter was retracted slightly and additional embolization using 100-300 um bland microspheres was performed. Post embolization arteriogram of the replaced left hepatic artery was performed. The microcatheter was removed and the 5 Filipino catheter was repositioned into the lower abdominal aorta. Digital subtraction angiography of the aortic bifurcation and right iliac vessels was performed. The catheter was then removed and disposed of appropriately. The right common femoral artery access site was closed using an Angio-Seal closure device. Hemostasis was achieved. The patient tolerated the procedure well and left the angiography suite in stable condition without any immediate postprocedural complications. FINDINGS: 1. Diagnostic angiography was performed to evaluate for extrahepatic vascular supply, extent of disease, and tumor progression since most recent cross- sectional imaging. Celiac axis angiogram demonstrates a replaced left hepatic artery originating from the left gastric artery. 2. Replaced left hepatic artery angiogram further demonstrates the vascular supply to the hepatic lesions 3. Superselective angiogram of a segment segment 4 branch of the left hepatic artery further demonstrates the vascular supply to the hepatic lesions and confirms catheter position prior to embolization 4. Superselective chemoembolization of segment 4 hepatic artery with approximately 100 mg Doxorubicin and 2 vials of 100-300 um bland microspheres. 5. Post embolization angiogram of the replaced left hepatic artery demonstrates decreased flow to the targeted lesions. IMPRESSION 1. Successful chemoembolization of hepatic tumor as described using approximately 100 mg of Doxorubicin and 2 vials of 100-300 micrometer bland embospheres. PLAN: Transported to CT scanner for concurrent CT guided microwave ablation of the enhancing liver mass. Follow up with MRI in one month to assess treatment response and if further treatment is necessary. Approved by Rigoberto Gottlieb M.D. on 02/05/2017 11:29 AM By my electronic signature, I attest that I have personally reviewed the images for this examination and formulated the interpretations and opinions expressed in this report Finalized by Tim Cruz M.D. on 02/05/2017 1:57 PM. Dictated by Rigoberto Gottlieb M.D. on 02/05/2017 10:24 AM. * CBC (01/30/2017 11:56 AM) Component Value Ref Range White Blood Cells 11.7 (H) 4.5 - 11.0 K/UL RBC 4.83 4.4 - 5.5 M/UL Hemoglobin 14.6 13.5 - 16.5 GM/DL Hematocrit 43.1 40 - 50 % MCV 89.3 80 - 100 FL MCH 30.2 26 - 34 PG MCHC 33.8 32.0 - 36.0 G/DL RDW 14.3 11 - 15 % Platelet Count 255 150 - 400 K/UL MPV 7.5 7 - 11 FL Specimen Performing Laboratory Blood [facility] [address] [place] [address] * COMPREHENSIVE METABOLIC PANEL (01/30/2017 11:56 AM) Only the most recent of 2 results within the time period is included. Component Value Ref Range Sodium 135 (L) 137 - 147 MMOL/L Potassium 4.4 3.5 - 5.1 MMOL/L Chloride 106 98 - 110 MMOL/L Glucose 94 70 - 100 MG/DL Blood Urea Nitrogen 24 7 - 25 MG/DL Creatinine 1.02 0.4 - 1.24 MG/DL Calcium 9.2 8.5 - 10.6 MG/DL Total Protein 6.5 6.0 - 8.0 G/DL Total Bilirubin 0.6 0.3 - 1.2 MG/DL Albumin 3.9 3.5 - 5.0 G/DL Alk Phosphatase 62 25 - 110 U/L AST (SGOT) 16 7 - 40 U/L CO2 22 21 - 30 MMOL/L ALT (SGPT) 17 7 - 56 U/L Anion Gap 7 3 - 12 eGFR Non >60 >60 mL/min Comment: The eGFR is not validated for use in drug dosing adjustments. Continue to use estimated creatinine clearance per dosing reference text. Please contact the Clinical Pharmacist for questions. eGFR >60 >60 mL/min Comment: The eGFR is not validated for use in drug dosing adjustments. Continue to use estimated creatinine clearance per dosing reference text. Please contact the Clinical Pharmacist for questions. Specimen Performing Laboratory [facility] [address] [place] [address] * CT CHEST WO CONTRAST (01/30/2017 7:39 AM) Specimen Performing Laboratory [facility] RAD RESULTS Impressions 1. No thoracic metastatic disease. 2. Marked emphysema and scattered areas of scarring. Finalized by Quincy Jaramillo M.D. on 01/30/2017 8:15 AM. Dictated by Quincy Jaramillo M.D. on 01/30/2017 8:[address] Chest Clinical Indication: Hepatocellular carcinoma. Staging. Technique: Multiple contiguous axial CT images were obtained through the chest without IV contrast.Post processing coronal and sagittal reconstruction images were made from the axial images. Comparison: None Findings: Axilla, Mediastinum and Yessi: No lymphadenopathy. Heart and Great Vessels: The heart size is normal. There is no pericardial effusion. 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 Lungs and Pleura: There is marked emphysema with scattered areas of scarring. A nodular opacity along the minor fissure is noted on series 3, image 38 which is a linear on the coronal images compatible with scarring. No pleural effusions. Chest Wall and Osseous Structures: Healing right anterior sixth rib fracture and acute to subacute nondisplaced right lateral 11th rib fractures are noted. No destructive osseous lesions are identified. Visualized Upper Abdomen: Cirrhosis and liver mass are noted, better evaluated on recent abdominal CT. Tiny nonobstructing right renal calculi are also noted. Procedure Note Interface, Radiant Results - 01/30/2017 8:[address] Chest Clinical Indication: Hepatocellular carcinoma. Staging. Technique: Multiple contiguous axial CT images were obtained through the chest without IV contrast. Post processing coronal and sagittal reconstruction images were made from the axial images. Comparison: None Findings: Axilla, Mediastinum and Yessi: No lymphadenopathy. Heart and Great Vessels: The heart size is normal. There is no pericardial effusion. 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 Lungs and Pleura: There is marked emphysema with scattered areas of scarring. A nodular opacity along the minor fissure is noted on series 3, image 38 which is a linear on the coronal images compatible with scarring. No pleural effusions. Chest Wall and Osseous Structures: Healing right anterior sixth rib fracture and acute to subacute nondisplaced right lateral 11th rib fractures are noted. No destructive osseous lesions are identified. Visualized Upper Abdomen: Cirrhosis and liver mass are noted, better evaluated on recent abdominal CT. Tiny nonobstructing right renal calculi are also noted. IMPRESSION 1. No thoracic metastatic disease. 2. Marked emphysema and scattered areas of scarring. Finalized by Quincy Jaramillo M.D. on 01/30/2017 8:15 AM. Dictated by Quincy Jaramillo M.D. on 01/30/2017 8:07 AM. * PATHOLOGY REPORTS FROM OUTSIDE SCAN (01/23/2017 7:03 AM) Narrative Ordered by an unspecified provider. * OUTSIDE PATHOLOGY CONSULT (01/10/2017 4:19 PM) Only the most recent of 2 results within the time period is included. Component Value Ref Range PATHOLOGY REPORT [facility] [email or web address] Tiffani Carreno MD, PhD, Director of Anatomic Pathology Department of Pathology and Laboratory Medicine [address] [place] [id number] Surgical Pathology Office: [phone] PATHOLOGY CONSULTATION NAME: JAIRO CARRILLO SURG PATH #: [id number] MR #: [id number] ALT ID #: [facility] DATE OF PROCEDURE: 01/10/2017 AGE: 71 SEX: M DATE RECEIVED: 01/10/2017 : 1945 TIME RECEIVED: 16:19 PHYSICIAN: OMI SAEED DATE OF REPORT: 01/16/2017 COPY TO: BRANDIN AQUINO Jacques DATE OF PRINTIN01/16/2017 ################################################## ###################### Final Diagnosis: A. Outside FNA Cytology Slides, Left Lobe Liver Mass (Date Collected 09/07/2016): Well-differentiated hepatocellular neoplasm, favor hepatocellular carcinoma. Comment: Please also see concurrent surgical pathology consultation report ([id number]). Attestation: By this signature, I attest that I have personally formulated the final interpretation expressed in this report and that the above diagnosis is based upon my examination of the slides and/or other material indicated in this report. +++Electronically Signed Out+++ ff/01/16/2017 Interpreted by: Tiffani Carreno MD, Attending Physician ################################################## ###################### Material Received: A: Outside FNA Cytology Slides, Left Lobe Liver Mass (Date Collected 09/07/2016) Gross Description: Received one ThinPrep slide and four H&E slides labeled [id number] from [employer], [address] [place] [address], [address], [address], [place] [address]. , fax . If immunohistochemical stains and/or in situ hybridization are cited in this report, the performance characteristics were determined by the Department of Pathology and Laboratory Medicine of the [facility] ([employer]) in compliance with CLIA'88 regulations. Some of these tests rely on the use of "analyte specific reagents" and are subject to specific labeling requirements by the FDA. Known positive and negative control tissues demonstrate appropriate staining. This testing was developed by the Department of Pathology and Laboratory Medicine of the [facility]. It has not been cleared or approved by the FDA. The FDA has determined that such clearance or approval is not necessary. Specimen Performing Laboratory [facility] RESULTS * CT ABDOMEN WO/W CONTRAST (01/07/2017 11:44 AM) Specimen Performing Laboratory [facility] RAD RESULTS Impressions 1.Focal enhancing hepatic mass in the anterior aspect of segment 4.This is biopsy-proven hepatocellular carcinoma by report.No other focal liver lesions are seen. 2.Mild hepatic steatosis with normal size spleen.No obvious portosystemic varices are seen, and there is no ascites. 3.Moderate aortic atherosclerosis with minimal infrarenal abdominal aortic aneurysm measuring 3.0 cm diameter. Finalized by Charlie Couch M.D. on 01/07/2017 3:15 PM. Dictated by Charlie Couch M.D. on 01/07/2017 3:[address] abdomen INDICATION: 71-year-old gentleman with hepatocellular carcinoma.He has had 2 liver biopsies, the first of which was indeterminate, and the second is reported to have shown hepatocellular carcinoma. TECHNIQUE: Standard liver CT technique was used with precontrast scans through the abdomen, arterial phase, portal venous phase and delayed scans using Isovue- 370. There are no previous imaging studies for comparison. FINDINGS: Heart size is normal.There is mild emphysema and fibrosis in the lung bases without pneumonia or pleural effusion. The liver and spleen are normal in size.Portal veins are well opacified. There is replacement of the right hepatic artery to the SMA.There is an oval mildly exophytic enhancing mass arising from the anteromedial aspect of segment 4.The lesion measures 6.0 cm transverse by 4.8 cm AP on image 17 series 6.The lesion shows moderate heterogeneous arterial phase enhancement with mild progressive increase in portal venous phase and mild diffuse washout on delayed phase imaging.No other focal liver lesions are seen.No portal vein thrombus is identified.There are normal size periportal lymph nodes. The adrenal glands are unremarkable.There is mild diffuse renal cortical atrophy.The pancreas is unremarkable.No central retroperitoneal adenopathy is identified.There is moderate aortic atherosclerosis with mixed plaque and minimal focal aneurysmal dilatation of the distal aorta measuring 3.0 cm diameter. Upper abdominal bowel loops are normal in caliber.There is no ascites. Procedure Note Interface, Radiant Results - 01/07/2017 3:[address] abdomen INDICATION: 71-year-old gentleman with hepatocellular carcinoma. He has had 2 liver biopsies, the first of which was indeterminate, and the second is reported to have shown hepatocellular carcinoma. TECHNIQUE: Standard liver CT technique was used with precontrast scans through the abdomen, arterial phase, portal venous phase and delayed scans using Isovue- 370. There are no previous imaging studies for comparison. FINDINGS: Heart size is normal. There is mild emphysema and fibrosis in the lung bases without pneumonia or pleural effusion. The liver and spleen are normal in size. Portal veins are well opacified. There is replacement of the right hepatic artery to the SMA. There is an oval mildly exophytic enhancing mass arising from the anteromedial aspect of segment 4. The lesion measures 6.0 cm transverse by 4.8 cm AP on image 17 series 6. The lesion shows moderate heterogeneous arterial phase enhancement with mild progressive increase in portal venous phase and mild diffuse washout on delayed phase imaging. No other focal liver lesions are seen. No portal vein thrombus is identified. There are normal size periportal lymph nodes. The adrenal glands are unremarkable. There is mild diffuse renal cortical atrophy. The pancreas is unremarkable. No central retroperitoneal adenopathy is identified. There is moderate aortic atherosclerosis with mixed plaque and minimal focal aneurysmal dilatation of the distal aorta measuring 3.0 cm diameter. Upper abdominal bowel loops are normal in caliber. There is no ascites. IMPRESSION 1. Focal enhancing hepatic mass in the anterior aspect of segment 4. This is biopsy-proven hepatocellular carcinoma by report. No other focal liver lesions are seen. 2. Mild hepatic steatosis with normal size spleen. No obvious portosystemic varices are seen, and there is no ascites. 3. Moderate aortic atherosclerosis with minimal infrarenal abdominal aortic aneurysm measuring 3.0 cm diameter. Finalized by Charlie Couch M.D. on 01/07/2017 3:15 PM. Dictated by Charlie Couch M.D. on 01/07/2017 3:03 PM. * POC CREATININE, RAD (01/07/2017 11:15 AM) Component Value Ref Range Creatinine, POC 1.0 0.4 - 1.24 MG/DL Specimen Performing Laboratory [facility] [address] [place] [id number] * HEPATITIS A IGG (01/07/2017 9:39 AM) Component Value Ref Range Hepatitis A IGG POS Note: Test type and methodology has changed. The [facility] lab has discontinued the test for Total Hep A Immunoglobulin. This test has been replaced with more specific testing. The tests for Hep A IgG and Hep A IgM are both now available and can be ordered. Specimen Performing Laboratory Blood [facility] [address] [place] [id number] * HEPATITIS C AB (01/07/2017 9:39 AM) Component Value Ref Range Anti HCV NEG Specimen Performing Laboratory Blood [facility] [address] [place] [id number] * HEPATITIS B SURFACE AG (01/07/2017 9:39 AM) Component Value Ref Range HBsAg NEG Specimen Performing Laboratory Blood [facility] [address] [place] [address] * HEPATITIS B SURFACE AB (01/07/2017 9:39 AM) Component Value Ref Range Anti HBs 3.7 mIU/ml Comment: Hepatitis B Surface Antibody Reference Ranges >12.0 Positive 8.0-12.0 Equivocal <8.0 Negative Specimen Performing Laboratory Blood [facility] [address] [place] [id number] * ALPHA FETO PROTEIN (AFP) (01/07/2017 9:39 AM) Component Value Ref Range Alpha Feto Protein 4.0 0.0 - 15.0 NG/ML Specimen Performing Laboratory [facility] [address] [place] [id number] * PROTIME INR (PT) (01/07/2017 9:39 AM) Component Value Ref Range INR 1.0 0.8 - 1.2 Specimen Performing Laboratory [facility] [address] [place] [address] * CBC AND DIFF (01/07/2017 9:39 AM) Component Value Ref Range White Blood Cells 9.3 4.5 - 11.0 K/UL RBC 4.87 4.4 - 5.5 M/UL Hemoglobin 14.4 13.5 - 16.5 GM/DL Hematocrit 44.4 40 - 50 % MCV 91.1 80 - 100 FL MCH 29.5 26 - 34 PG MCHC 32.4 32.0 - 36.0 G/DL RDW 14.0 11 - 15 % Platelet Count 266 150 - 400 K/UL MPV 7.9 7 - 11 FL Neutrophils 57 41 - 77 % Lymphocytes 30 24 - 44 % Monocytes 10 4 - 12 % Eosinophils 3 0 - 5 % Basophils 0 0 - 2 % Absolute Neutrophil Count 5.30 1.8 - 7.0 K/UL Absolute Lymph Count 2.80 1.0 - 4.8 K/UL Absolute Monocyte Count 0.90 (H) 0 - 0.80 K/UL Absolute Eosinophil Count 0.20 0 - 0.45 K/UL Absolute Basophil Count 0.00 0 - 0.20 K/UL Specimen Performing Laboratory [facility] [address] [place] [address] * HEMOGLOBIN A1C (01/07/2017 9:39 AM) Component Value Ref Range Hemoglobin A1C 5.9 4.0 - 6.0 % Comment: The ADA recommends that most patients with type 1 and type 2 diabetes maintain an A1c level <7%. Specimen Performing Laboratory [facility] [address] [place] [address] * LIPID PROFILE (01/07/2017 9:39 AM) Component Value Ref Range Cholesterol 155 <200 MG/DL Triglycerides 285 (H) <150 MG/DL HDL 41 >40 MG/DL LDL 97 <100 MG/DL VLDL 57 MG/DL Non HDL Cholesterol 114 MG/DL Comment: Calculated non-HDL Cholesterol (non-HDL-C) indirectly measures LDL-C, Lp(a), IDL-C, and VLDL-C. It is a surrogate marker for Apoprotein B. Non-HDL-C is a more accurate measure of atherogenic particle concentration than LDL-C in patients with hypertriglyceridemia (>200 mg/dL). This calculation is now recommended for evaluation and treatment of coronary heart disease according to the National Cholesterol Education Program Adult Treatment Protocol-III. See Huddleston et al. Am J. Cardiol. 2008, 101:0692-6013. The "goal" should be less than 130 mg/dL, but will vary according to risk factors. Specimen Performing Laboratory [facility] [address] [place] [address] from Last 3 Months
--- OUTSIDE RECORDS SUMMARY | 2017-02-22 19:21 | XMS REPORT | Encounter Summary ---
Author Author [facility] Organization [facility] Address Unknown Phone Unavailable Care Team Providers Care Hydropress Operator Name Role Phone PCP Unavailable Reason for Visit * Auth/Cert Status Reason Specialty Diagnoses / Referred By Referred To Procedures Contact Contact Diagnoses Esophageal varices (HCC) Hepatocellular carcinoma (HCC) UNKNOWN Procedures ESOPHAGOGASTRODU ODENOSCOPY Encounter Details Date Type Department Care Team Description 03/05/2017 Surgery Gastrointenstinal Hawa Hughes MD ESOPHAGOGASTRODUODENOSCOP Endoscopy [address] [place] [address] [place] [id number] Social History Tobacco Use Types Packs/Day Years Used Date Former Smoker Cigarettes 1 50 Quit: 12/17/2015 Smokeless Tobacco: Never Used Alcohol Use Drinks/Week oz/Week Comments No 0 Standard 0.0 drinks or equivalent Sex Assigned at Date Recorded Not on file as of this encounter Functional Status Functional Status Response Date of Assessment Does the patient have a hearing impairment: No 01/30/2017 Does the patient have a visual impairment: Yes 01/30/2017 Does the patient have impaired ambulation: No 01/30/2017 Does the patient have an activity of daily living No 01/30/2017 (ADL) impairment: Does the patient have an instrumental activity of No 01/30/2017 daily living (IADL) impairment: Cognitive Status Response Date of Assessment Does the patient have a cognitive impairment: No 01/30/2017 as of this encounter Plan of Treatment Date Type Specialty Care Team Description 03/05/2017 Surgery Hawa Hughes MD ESOPHAGOGASTRODUODENOSCOP [address] [place] [address] [phone] 03/05/2017 Procedure Pass 03/05/2017 Hospital Ian Narvaez MD Esophageal varices (HCC) Encounter [address] [place] [address] [phone] as of this encounter Visit Diagnoses Diagnosis Esophageal varices (HCC) Esophageal varices without mention of bleeding Hepatocellular carcinoma (HCC) Malignant neoplasm of liver, primary in this encounter Admitting Diagnoses Diagnosis Esophageal varices (HCC) - UNKNOWN Esophageal varices without mention of bleeding Hepatocellular carcinoma (HCC) Malignant neoplasm of liver, primary in this encounter
--- OUTSIDE RECORDS SUMMARY | 2017-02-22 19:21 | XMS REPORT | Encounter Summary ---
Author Author [facility] Organization [facility] Address Unknown Phone Unavailable Care Team Providers Care Infant Childcare Provider Name Role Phone PCP Unavailable Encounter Details Date Type Department Care Team Description 02/05/2017 Orders Only [facility] Billie Snyder RN Hepatocellular carcinoma Hospital Radiology (HCC) (Primary Dx) [address] [place] [address] Social History Tobacco Use Types Packs/Day Years [...] 03/05/2017 Surgery Hawa Hughes MD ESOPHAGOGASTRODUODENOSCOP [address] [place] [address] 03/05/2017 Procedure Pass 03/05/2017 Hospital Ian Narvaez MD Esophageal varices (HCC) Encounter [address] [place] [address] Name Priority Associated Diagnoses Order Schedule CBC Routine Hepatocellular carcinoma Expected: 02/19/2017 (HCC) (Approximate), Expires: 02/05/2018 COMPREHENSIVE METABOLIC PANEL Routine Hepatocellular carcinoma Expected : 02/19/2017 (HCC) (Approximate), Expires: 02/05/2018 as of this encounter Visit Diagnoses Diagnosis Hepatocellular carcinoma (HCC) - Primary Malignant neoplasm of liver, primary in this encounter
--- OUTSIDE RECORDS SUMMARY | 2017-02-22 19:21 | XMS REPORT | Encounter Summary ---
Author Author [facility] Organization [facility] Address Unknown Phone Unavailable Care Team Providers Care Operations Logistics Analyst Name Role Phone PCP Unavailable Reason for Referral * Radiology Services Status Reason Specialty Diagnoses / Referred By Referred To Procedures Contact Contact No Auth Needed Radiology Diagnoses Ian Narvaez [facility] Ir Hepatocellular [address] carcinoma (HCC) [address] [place], [place]cedures [place] [address] [place]ODY [place] Phone: EMBOLIZATION [address] [place] VASCULAR Phone: EMBOLIZE/OCCLUDE [phone] ORGAN TUMOR Fax: INFARCT [phone] CHG ANGIOGRAPHY VISCERAL SLCTV/SUPRASLCTV RS&I VT SLCTV CATHJ 3RD+ ORD SLCTV ABDL PEL/LXTR BRNCH CHG ANGRPH SLCTV EA VSL STUDIED AFTER BASIC XM RS&I VT CHEMOTHERAPY ADMIN INTRA-ARTERIAL PUSH TQ * Radiology Services Status Reason Specialty Diagnoses / Referred By Referred To Procedures Contact Contact No Auth Needed Radiology Diagnoses Ian Narvaez [facility] Ir Hepatocellular [address] carcinoma (HCC) [address] [place], [place] [address] [place] Phone: EMBOLIZATION [address] [place] Phone: EMBOLIZE/OCCLUDE [phone] ORGAN TUMOR Fax: INFARCT [phone] CHG ANGIOGRAPHY VISCERAL SLCTV/SUPRASLCTV RS&I VT SLCTV CATHJ 3RD+ ORD SLCTV ABDL PEL/LXTR BRNCH CHG ANGRPH SLCTV EA VSL STUDIED AFTER BASIC XM RS&I VT CHEMOTHERAPY ADMIN INTRA-ARTERIAL PUSH TQ Reason for Visit * Radiology Services Status Reason Specialty Diagnoses / Referred By Referred To Procedures Contact Contact No Auth Needed Radiology Diagnoses Ian Narvaez, [facility] Ir Hepatocellular [address] [facility] carcinoma (HCC) [address] [place], [place]ures [place] [address] [address] [place] Phone: EMBOLIZATION [address] [place] Phone: EMBOLIZE/OCCLUDE [phone] ORGAN TUMOR Fax: INFARCT [phone] CHG ANGIOGRAPHY VISCERAL SLCTV/SUPRASLCTV RS&I VT SLCTV CATHJ 3RD+ ORD SLCTV ABDL PEL/LXTR BRNCH CHG ANGRPH SLCTV EA VSL STUDIED AFTER BASIC XM RS&I VT CHEMOTHERAPY ADMIN INTRA-ARTERIAL PUSH TQ Encounter Details Date Type Department Care Team Description 02/05/2017 Hospital [facility] Ian Narvaez MD Encounter Hospital Radiology [address] [facility] [address] [facility] [address] [place] [address] [place] [address] [phone] Mandie Mendosa, OSMAR P gaurav, Nhan Staley MD [address] [facility] [address] [address] [place] [address] [phone] Social History Tobacco Use Types Packs/Day Years Used Date Former Smoker Cigarettes 1 50 Quit: 12/17/2015 Smokeless Tobacco: Never Used Alcohol Use Drinks/Week oz/Week Comments No 0 Standard 0.0 drinks or equivalent Sex Assigned at Date Recorded Not on file as of this encounter Last Filed Vital Signs Vital Sign Reading Time Taken Blood Pressure 127/66 02/05/2017 11:15 AM CDT Pulse 84 02/05/2017 11:15 AM CDT Temperature 36.8 C (98.2 F) 02/05/2017 7:45 AM CDT Respiratory Rate - - Oxygen Saturation 97% 02/05/2017 11:15 AM CDT Inhaled Oxygen - - Concentration Weight 109.3 kg (241 lb) 02/05/2017 7:45 AM CDT Height 182.9 cm (6') 02/05/2017 7:45 AM CDT Body Mass Index 32.69 02/05/2017 7:45 AM CDT in this encounter Functional Status Functional Status Response [...] impairment: No 01/30/2017 as of this encounter Discharge Instructions * Patient Instructions - Raegan Blanchard, OSMAR - 02/05/2017 7:51 AM CDT INTERVENTIONAL RADIOLOGY DISCHARGE INSTRUCTIONS MICROWAVE ABLATION Microwave Ablation is aprocedure that heats and destroys cancer cells. Imaging techniques such as ultrasound, CT, or MRI are used to help guide a needle electrode intoa tumor. Microwave currents are then passed through the electrode creating heat that destroys the abnormal cells. At the same time , heat from the ablation energy closes small blood vessels and lessens the risk of bleeding.The tumor cells are gradually replaced by scar tissue that will shrink over time. Microwave ablation may cause shoulder pain or flu like symptoms usually lasting no more than3-5 days. POST-PROCEDURE ACTIVITY: A responsible adult must drive you home after the procedure. You should not drive or operate heavy machinery or do anything that requires concentration for at least 24 hours after receiving sedation or anesthesia. It is recommended that a responsible adult be with you until morning. Avoid lifting more than 5 lbs. for 1 week and avoid exercises that use your abdominal muscles. Also avoid pushing, pulling or straining. POST-PROCEDURE SITE CARE: You will have a small bandage over the site. Keep this dry. You may remove it in 24 hours. You may shower in 24 hours, after removing the bandage. Do not submerge the site underwater for 1 week (no swimming/hot tub, etc.) Be sure your hands are clean when touching near the site. Do not use ointments, creams or powders on the puncture site. DIET/MEDICATIONS: You may resume your previous diet 1-2 hours after the procedure. Avoid any foods or beverages containing alcohol for at least 24 hours after the procedure. Please see the Medication Reconciliation sheet for instructions on resuming your home medications. CALL THE DOCTOR IF: Bright red blood has soaked the bandage. You have severe pain not relieved by medication. Some soreness or tenderness at the site is to be expected for several days. You have persistent nausea or vomiting. You have signs of infection such as: Chills, fever greater than 101F, body aches, redness, swelling or warmth at the puncture site or pus draining from the site. You have new or worse belly swelling or bloating. You observe a dark color to your urine You develop yellow coloring to skin and eyes (jaundice). You or your caregiver should call 911 for any severe symptoms such as excessive bleeding, severe dizziness, trouble breathing or loss of consciousness. For problems or concerns related to the procedure, call [phone] from 7am- 5pm, Saturday-Saturday. After-hours and weekends, please call [phone] and ask for the Interventional Car Whacker on-call. For procedures performed at the [facility], please call the Radiology dept. [phone], Saturday-Saturday, 8am-5pm. After hours and weekends, please call [phone] and ask for the Interventional Car Whacker on-call. in this encounter Medications at Time of Discharge Medication Sig. Disp. Refills Start Date End Date acetaminophen (TYLENOL) Take 500 mg by mouth 500 mg tablet every 6 hours as needed for Pain. Max of 4,000 mg of acetaminophen in 24 hours. albuterol (VENTOLIN HFA, Inhale 2 Puffs by mouth PROAIR HFA, PROVENTIL into the lungs every 6 HFA) 90 mcg/actuation hours as needed for inhaler Wheezing or Shortness of Breath. Shake well before use. albuterol 0.5% Inhale 2.5 mg solution by (PROVENTIL; VENTOLIN) 2.5 nebulizer as directed mg/0.5 mL nebulizer every 6 hours as needed solution for Shortness of Breath or Wheezing. alirocumab (PRALUENT PEN) Inject 75 mg under the 75 mg/mL injectable PEN skin every 14 days. ALPRAZolam (XANAX) 0.25 Take 0.25 mg by mouth mg tablet three times daily as needed for Anxiety. aspirin EC 81 mg tablet Take 81 mg by mouth daily. Take with food. budesonide/formoterol Inhale 2 Puffs by mouth (SYMBICORT HFA) 160/4.5 into the lungs twice mcg inhalation daily. cetirizine (ZYRTEC) 10 mg Take 10 mg by mouth every tablet morning. clopiDOGrel (PLAVIX) 75 Take 75 mg by mouth mg tablet daily. cyclobenzaprine Take 10 mg by mouth three (FLEXERIL) 10 mg tablet times daily as needed for Muscle Cramps. furosemide (LASIX) 20 mg Take 20 mg by mouth daily tablet as needed. isosorbide mononitrate SR Take 30 mg by mouth every (IMDUR) 30 mg tablet morning. lisinopril (PRINIVIL; Take 5 mg by mouth daily. ZESTRIL) 10 mg tablet metoprolol tartrate Take 50 mg by mouth twice (LOPRESSOR) 50 mg tablet daily. mometasone (NASONEX) 50 Apply 2 Sprays to each mcg/actuation nasal spray nostril as directed daily. montelukast (SINGULAIR) Take 10 mg by mouth at 10 mg tablet bedtime daily. naproxen (NAPROSYN) 500 Take 500 mg by mouth mg tablet twice daily with meals. Take with food. nitroglycerin (NITROSTAT) Place 0.4 mg under tongue 0.4 mg tablet every 5 minutes as needed for Chest Pain. Max of 3 tablets, call 911. pantop[address] DR Take 40 mg by mouth (PROTONIX) 40 mg tablet daily. psyllium (METAMUCIL) 3.4 Take by mouth at bedtime gram packet daily. traMADol (ULTRAM) 50 mg Take 50 mg by mouth every tablet 6 hours as needed for Pain. as of this encounter Progress Notes * Mandie Soto RN - 02/05/2017 8:59 AM CDT Sedation physician present in room. Recent vitals and patient condition reviewed between sedating physician and nurse. Reassessment completed. Determination made to proceed with planned sedation. in this encounter Plan of Treatment Date Type Specialty Care Team Description 03/05/2017 Surgery Hawa Hughes MD ESOPHAGOGASTRODUODENOSCOP [address] [place] [address] [phone] 03/05/2017 Procedure Pass 03/05/2017 [facility] Ian Narvaez MD Esophageal varices (HCC) Encounter [address] [place] [address] [phone] as of this encounter Results * IR BODY EMBOLIZATION (02/05/2017 10:05 AM) [...] femoral artery CONTRAST: 110 mL nonionic TECHNIQUE: Nhan Temple M.D, the attending radiologist, was present for [...] artery. The needle was exchanged for 4 Malawian transitional catheter. The wire and inner dilator were removed and 0.035 Bentson wire was advanced to the artery. The transitional catheter was exchanged for a 5 Malawian vascular sheath attached to a heparinized, pressurized [...] saline, and doxorubicin eluting 70-150 micrometer LC Greyson Beads. Post-embolization arteriogram of the replaced left hepatic artery was performed. The catheter was retracted slightly and additional embolization using 100-300 um bland microspheres was performed. Post embolization arteriogram of the replaced left hepatic artery was performed. The microcatheter was removed and the 5 Malawian catheter was repositioned into the lower abdominal [...] artery. The needle was exchanged for 4 Malawian transitional catheter. The wire and inner dilator were removed and 0.035 Bentson wire was advanced to the artery. The transitional catheter was exchanged for a 5 Malawian vascular sheath attached to a heparinized, pressurized [...] saline, and doxorubicin eluting 70-150 micrometer LC Greyson Beads. Post-embolization arteriogram of the replaced left hepatic artery was performed. The catheter was retracted slightly and additional embolization using 100-300 um bland microspheres was performed. Post embolization arteriogram of the replaced left hepatic artery was performed. The microcatheter was removed and the 5 Malawian catheter was repositioned into the lower abdominal [...] Rigoberto Gottlieb M.D. on 02/05/2017 10:24 AM. in this encounter Visit Diagnoses Diagnosis Hepatocellular carcinoma (HCC) Malignant neoplasm of liver, primary in this encounter Administered Medications Medication Order MAR Action Action Date Dose Rate Site ampicillin/sulbactam (UNASYN) 3 g in Given - New 02/05/2017 3 g 100 mL/ hr sodium chloride 0.9% (NS) 100 mL IVPB Bag 08:23 CDT (MB+) 3 g, Intravenous, at 100 mL/hr, ONCE, 1 dose, 02/05/17 at 0730 DOXOrubicin (ADRIAMYCIN) 25 mg, drug Given 02/05/2017 eluting beads 70-150 (LC BEAD GREYSON) 2 10:00 CDT mL, iohexol (OMNIPAQUE-350) 18 mL 20 mL embolization syr 20 mL, Intra-arterial, ONCE, 1 dose, 02/05/17 at 0900, Hepatic Artery Embolization -- NURSING: To be administered by Chemotherapy Competency-validated nurse. NOTE: This is a HIGH ALERT Medication. DOXOrubicin (ADRIAMYCIN) 75 mg, drug Given 02/05/2017 eluting beads 70-150 (LC BEAD GREYSON) 2 09:58 CDT mL, iohexol (OMNIPAQUE-350) 18 mL 20 mL embolization syr 20 mL, Intra-arterial, ONCE, 1 dose, 02/05/17 at 0900, Hepatic Artery Embolization -- NURSING: To be administered by Chemotherapy Competency-validated nurse. NOTE: This is a HIGH ALERT Medication. famotidine (PEPCID) injection 20 mg Given 02/05/2017 20 mg 20 mg, Intravenous, ONCE, 1 dose, Tue 08:27 CDT 02/05/17 at 0745, DILUTE W/ 10ML NS OR D5W. GIVE IV PUSH OVER 2 MIN fentaNYL citrate PF (SUBLIMAZE) Given 02/05/2017 25 mcg injection 09:39 CDT INTRA-PROCEDURE MED, Starting 02/05/17 at 0939, Until 02/05/17 at 0955 Given 02/05/2017 25 mcg 09:55 CDT fentaNYL citrate PF (SUBLIMAZE) Given 02/05/2017 50 mcg injection 50 mcg 08:50 CDT 50 mcg, Intravenous, ONCE, 1 dose, 02/05/17 at 0730 iopamidol 300 (ISOVUE-300) injection 110 Given 02/05/2017 110 mL mL 10:08 CDT 110 mL, Intra-arterial, ONCE, 1 dose, 02/05/17 at 1015, NOTE: This is a HIGH ALERT Medication. ketorolac (TORADOL) injection Given 02/05/2017 30 mg INTRA-PROCEDURE MED, Starting e 09:48 CDT 02/05/17 at 0948, Until 02/05/17 at 0948 LORazepam injection (ATIVAN) syringe 1 Given 02/05/2017 1 mg mg 07:58 CDT 1 mg, Intravenous, ONCE, 1 dose, 02/05/17 at 0745, PROTECT FROM LIGHT midazolam (VERSED) injection 1 mg Given 02/05/2017 1 mg 1 mg, Intravenous, ONCE, 1 dose, Tue 08:50 CDT 02/05/17 at 0730 midazolam (VERSED) injection Given 02/05/2017 1 mg INTRA-PROCEDURE MED, Starting Tue 09:41 CDT 02/05/17 at 0941, Until 02/05/17 at 0941 morphine injection syringe Given 02/05/2017 2 mg INTRA-PROCEDURE MED, Starting Tue 09:48 CDT 02/05/17 at 0948, Until 02/05/17 at 0948 ondansetron (ZOFRAN) 16 mg, Given - New 02/05/2017 240 mL/hr dexamethasone (DECADRON) 20 mg in sodium Bag 08:51 CDT chloride 0.9% (NS) 60 mL IVPB 60 mL, Intravenous, Administer over 15 Minutes, ONCE, 1 dose, Tu 02/05/17 at 0745, Pre-Procedure (IR) sodium chloride 0.9 % infusion Given - New 02/05/2017 150 mL/hr 1,000 mL, Intravenous, at 150 mL/hr, Bag 08:03 CDT CONTINUOUS, Starting [facility] 02/05/17 at 0745, Until [place] 02/10/17 at 0211, Pre-Procedure (IR) Given - New Bag 02/05/2017 150 mL/hr 08:28 CDT in this encounter
--- OUTSIDE RECORDS SUMMARY | 2017-02-22 19:21 | XMS REPORT | Encounter Summary ---
Author Author [facility] Organization [facility] Address Unknown Phone Unavailable Care Team Providers Care Principal Mechanical Engineer Name Role Phone PCP Unavailable Reason for Referral * Radiology Services Status Reason Specialty Diagnoses / Referred By Referred To Procedures Contact Contact No Auth Needed Radiology Diagnoses Nhan Cruz, [facility] Ir HCC MD [address] (hepatocellular [address] carcinoma) (HCC) [address]VD [place], [place] P [place] [address] [address] rocedures [place], [place] Phone: [place] [id number] ABLATION PERC Phone: IR ABLATION [phone] [place] ABLTJ 1/> LVR Fax: LEXIE PRQ RF [phone] GUIDANCE &MONITORING VISC TISS ABLATION Encounter Details Date Type Department Care Team Description 02/05/2017 Ancillary [facility] Nhan Cruz MD HCC ( hepatocellular [facility] Radiology [address] carcinoma) (HCC) [address] [place] [address] [place] [address] [phone] Social History Tobacco Use Types Packs/Day Years [...] 03/05/2017 Surgery Hawa Hughes MD ESOPHAGOGASTRODUODENOSCOP [address] [place] [address] [phone] 03/05/2017 Procedure Pass 03/05/2017 Hospital Ian Narvaez MD Esophageal varices (HCC) Encounter [address] [place] [address] as of this encounter Results * CT GUIDE FOR RF ABLATION PERC [...] dermatotomy incision was made. A 13- gauge [employer] microwave ablation needle was then advanced into [...] Tim Cruz M.D. on 02/06/2017 7:49 AM. in this encounter Visit Diagnoses Diagnosis HCC (hepatocellular carcinoma) (HCC) Malignant neoplasm of liver, primary in this encounter
--- OUTSIDE RECORDS SUMMARY | 2017-02-22 19:21 | XMS REPORT | Encounter Summary ---
Author Author [facility] Organization [facility] Address Unknown Phone Unavailable Care Team Providers Care Solar Systems Designer Name Role Phone PCP Unavailable Encounter Details Date Type Department Care Team Description 02/05/2017 Procedure Pass [facility] Radiology [address] [place] [address] Social History Tobacco Use Types [...] 03/05/2017 Surgery Hawa Hughes MD ESOPHAGOGASTRODUODENOSCOP [address] [place] [address] 03/05/2017 Procedure Pass 03/05/2017 [facility] Ian Narvaez MD Esophageal varices (HCC) Encounter [address] [place] [address] as of this encounter Visit Diagnoses Not on filein this encounter
--- OUTSIDE RECORDS SUMMARY | 2017-02-22 19:21 | XMS REPORT | Encounter Summary ---
Author Author [facility] Organization [facility] Address Unknown Phone Unavailable Care Team Providers Care Buffer Automatic Name Role Phone PCP Unavailable Reason for Visit * Radiology Services Status Reason Specialty Diagnoses / Referred By Referred To Procedures Contact Contact No Auth Needed Radiology Diagnoses Nhan Cruz, [facility] Ir HCC MD [address] (hepatocellular [address] carcinoma) (HCC) BLVD [place], [place] P [address] [id number] rocedures [place], [place] Phone: [place] [id number] ABLATION PERC Phone: IR ABLATION [phone] CT ABLTJ 1/> LVR Fax: LEXIE PRQ RF [phone] GUIDANCE &MONITORING VISC TISS ABLATION Encounter Details Date Type Department Care Team Description 02/05/2017 Hospital [facility] Nhan Cruz MD Encounter Hospital Radiology [address] [place] [address] [place] [address] [phone] B Lorenza francois, RN Social History Tobacco Use Types Packs/Day Years [...] F) 02/05/2017 4:40 PM CDT Respiratory Rate - - Oxygen Saturation 95% 02/05/2017 6:15 PM CDT Inhaled Oxygen - - Concentration Weight - - Height - - Body Mass Index - - in this encounter Functional Status Functional Status [...] encounter Discharge Instructions * Patient Instructions - Sonal Peralta RN - 02/05/2017 3:41 PM CDT TRANSARTERIAL CHEMOEMBOLIZATION (TACE) Discharge Instructions In Transarterial Chemoembolization, the blood supply to a liver tumor is blocked or embolized with microscopic beads called embospheres and a chemotherapeutic agent is injected directly into one or more liver tumors causing them to shrink. During this procedure, a tiny catheter is placed in your femoral artery and then threaded into the arteries of your liver (as in an arteriogram) in order to deliver the chemoembolization to the tumor. POST-PROCEDURE ACTIVITY: A responsible adult must drive you home after the procedure. If you receive sedation or anesthesia, do not drive, operate heavy machinery or do anything that requires concentration for at least 24 hours. It is recommended that a responsible adult be with you until morning. Avoid any exertion for one week. Exertion is lifting over 10 lbs., pushing , pulling or straining. Avoid excessive bending, stooping, or stair climbing for 2 days. It is okay to go upstairs or bend over but take it slowly and keep it to a minimum. You may be up and about while relaxing at home as you recover. POST-PROCEDURE SITE CARE: You will have a bandage over the site. Keep this dry. You may remove it in 24 hours. You may shower in 24 hours after removing the bandage. Wash and dry the site gently. Do not submerge the site underwater for one week (no tub bath, swimming, hot tub, etc.) Do not use ointments, creams or powders on the puncture site. Be sure your hands are clean when touching near the site. Inspect the site daily. DIET/MEDICATIONS: You may resume your previous diet after the procedure. If you receive sedation or narcotic pain medications, avoid any foods or beverages containing alcohol for at least 24 hours. Please see the Medication Reconciliation sheet for instructions regarding resuming your home medications. WHEN TO CALL THE DOCTOR: If you have significant bleeding (more than a teaspoon) or swelling at the site (bigger than a golf ball), lie down, apply firm pressure to the site and call 911. Bleeding from a large vessel requires professional help. If you have signs of infection such as: Chills, body aches, fever greater than 101F, redness, swelling or warmth at the puncture site. If you have severe abdominal pain or swelling. If you have persistent nausea or vomiting. If you have soreness that continues for more than a week or unusual pain at the puncture site. It is common to have mild soreness or slight swelling at the site for up to 2 weeks. If you have numbness, tingling, weakness in the leg below the puncture site or your leg becomes cold and pale. You or your caregiver should call 911 for severe symptoms such as excessive bleeding, severe dizziness, chest pain, shortness of breath or loss of consciousness. To report any of the above problems or for any concerns related to the procedure , please call [phone] from 7am-5pm, Saturday-Saturday. After hours and weekends, please call [phone] and ask for the Interventional Manager Of Warehouse on-call. INTERVENTIONAL RADIOLOGY DISCHARGE INSTRUCTIONS MICROWAVE ABLATION Microwave [...] or concerns related to the procedure, call [phone] from 7am- 5pm, Saturday-Saturday. After-hours and weekends, please call [phone] and ask for the Interventional Manager Of Warehouse on-call. For procedures performed at the [facility], please call the Radiology dept. [phone], Saturday-Saturday, 8am-5pm. After hours and weekends, please call [phone] and ask for the Interventional Manager Of Warehouse on-call. in this encounter Medications at Time [...] Pain. Max of 3 tablets, call 911. ondansetron (ZOFRAN) 4 mg Take 1 Tab by mouth every 20 Tab 0 2016 tabletIndications: 8 hours as needed. PREVENTION OF Indications: PREVENTION POST-OPERATIVE NAUSEA AND OF POST-OPERATIVE NAUSEA VOMITING AND VOMITING oxyCODONE (ROXICODONE, Take 1-2 Tabs by mouth 30 Tab 0 02/05/2017 OXY-IR) 5 mg every 4 hours as needed tabletIndications: PAIN for Pain Indications: PAIN pantoprazole DR Take 40 mg by mouth (PROTONIX) 40 mg tablet daily. psyllium (METAMUCIL) 3.4 Take by mouth at bedtime gram packet daily. traMADol (ULTRAM) 50 mg Take 50 mg by mouth every tablet 6 hours as needed for Pain. as of this encounter Progress Notes * Sonal Peralta RN - 02/05/2017 6:30 PM CDT Discharge instructions reviewed with and . Both verbalize understanding. IV's D/C, tips in tact. Pt d/c via wheelchair to lobby on 2L NC. * Sonal Peralta RN - 02/05/2017 6:[address] Ibarra, pt ok to D/C. Pt to wear his 2L NC for ride home, and while sleeping. Pt and verbalize understanding. * Sonal Peralta RN - 02/05/2017 6:[address] Ibarra to bedside. * Sonal Peralta RN - 02/05/2017 6:16 PM CDT Additional page out to anesthesia for sign out. Will continue to monitor. * Sonal Peralta RN - 02/05/2017 6:01 PM CDT Pt back to chair. States he 'is ready to go home, and will be much more comfortable there.' Anesthesia paged to evaluate pt's readiness to d/c. * Sonal Peralta RN - 02/05/2017 5:51 PM CDT Pt stood with standby assist to urinate. Voided per urinal. Pt requesting to sit on edge of bed. currently providing back massage. Will continue to monitor. * Sonal Peralta RN - 02/05/2017 5:24 PM CDT Pt alert, O2 saturation 95 on 2L NC. Eating at this time. Will continue to monitor. * Sonal Peralta RN - 02/05/2017 4:50 PM CDT Pt sats drop to mid 80's when drifting off to sleep. Hx MICAELA, states he sometimes uses O2 at home. Pt has home O2, and states upon discharge he will wear O2 on ride home. Dr. Ibarra with anesthesia to bedside. 2L NC initiated to see where pt's O2 saturation will fall while sleeping. Per Dr. Ibarra, pt to stay until more awake and medications have worn off more. Orders placed for tylenol PO and Toradol IV if needed for pain. Will continue to monitor. * Sonal Peralta RN - 02/05/2017 4:[address] Cruz updated on pt's increase in HR and BP. Orders received to check pt' s temperature, pt's temp [address] Cruz, pt ok to d/c once released from anesthesia care. Pt resting in chair. VSS, no c/o nausea, pain decreased to 3/10. Will continue to monitor. * Sonal Peralta RN - 02/05/2017 3:24 PM CDT Pt standing with assist to urinate. Back to chair. * Sonal Peralta RN - 02/05/2017 3:15 PM CDT Pt requests to stand up. This RN plus HCT assisted pt to stand at bedside. Unsteady gait. Pt to chair. This RN to remain at bedside. Pain decreased to 7 /10. Additional 0.5mg dilaudid administered as ordered, see MAR. Will continue to monitor. * Sonal Peralta RN - 02/05/2017 3:[address] Cruz at bedside. * Sonal Peralta RN - 02/05/2017 2:58 PM CDT ANTONIETTA Wise RN called for update on pt condition. Billie updated. Per Dr. Nancy Wise to come to bedside and see pt. Will continue to monitor. * Sonal Peralta RN - 02/05/2017 2:[address] Ibarra with anesthesia notified of pt's c/o pain '12/10' (when awake) after total of 200 mcg fentanyl administration and 5 mg PO oxycodone. Telephone order received to administer 0.5mg-1.0mg Dilaudid IV once, read back and verified. Pt drifts in and out of sleep. Currently resting comfortably, will administer medication as needed upon waking. Will continue to monitor. * Sonal Peralta RN - 02/05/2017 2:15 PM CDT ANTONIETTA Wise at bedside. Prescriptions provided to pt's spouse. OSMAR Wise providing medication education at this time. Pt resting at this time. Will continue to monitor. * Fe Gaytan RN - 02/05/2017 11:43 AM CDT Pt to IR procedure room 5 accompanied by anesthesia. Anesthesia to monitor airway, vital signs, and medications throughout IR procedure. See anesthesia documentation. * Fe Gaytan RN - 02/05/2017 11:40 AM CDT Verified with Chel Nash CRNA during room set up that a gutierrez is not needed for this procedure. in this encounter Plan of Treatment Date Type Specialty Care Team Description 03/05/2017 Surgery Hawa Hughes MD ESOPHAGOGASTRODUODENOSCOP [address] [place], [place] [phone] 03/05/2017 Procedure Pass 03/05/2017 Hospital Ian Narvaez MD Esophageal varices (HCC) Encounter [address] [place], [place] [id number] as of this encounter Results * CT GUIDE FOR RF ABLATION PERC (02/05/2017 12:56 PM) Specimen Performing Laboratory [facility] RAD RESULTS Impressions Successful CT-guided microwave ablation of the left lobe hepatocellular carcinoma following chemoembolization. The patient is to have a follow-up CT scan in one month to evaluate treatment response. Finalized by Tim Crzu M.D. on 02/06/2017 8:19 AM. Dictated by [...] MAR Action Action Date Dose Rate Site acetaminophen (TYLENOL) tablet 650 mg Given 02/05/2017 650 mg 650 mg, Oral, ONCE PRN, 1 dose, Starting 17:31 CDT [facility] 02/05/17 at 1659, Until 02/05/17 at 1731, Pain non-opioid: may be used alone or in combination with opioid analgesia, TOTAL ACETAMINOPHEN DOSE NOT TO EXCEED 4GM DAILY fentaNYL citrate PF (SUBLIMAZE) Given 02/05/2017 25 mcg injection 25 mcg 13:59 CDT 25 mcg, Intravenous, EVERY 5 MIN PRN, Starting [facility] 02/05/17 at 1320, Until [place] 02/10/17 at 0211, Pain Injectable, For Pain Score < 4, Maximum total dose of 200 mcg Hold for RR < 10 Given 02/05/2017 25 mcg 14:11 CDT Given 02/05/2017 25 mcg 14:30 CDT fentaNYL citrate PF (SUBLIMAZE) Given 02/05/2017 50 mcg injection 50 mcg 13:27 CDT 50 mcg, Intravenous, EVERY 5 MIN PRN, Starting 02/05/17 at 1320, Until [place] 02/10/17 at 0211, Pain Injectable, For Pain Score 4-10, Maximum total dose 200 mcg Hold if RR < 10 Given 02/05/2017 50 mcg 13:43 CDT HYDROmorphone injection (DILAUDID) Given 02/05/2017 1 mg syringe 0.5-1 mg 14:54 CDT 0.5-1 mg, Intravenous, ONCE, 1 dose, [facility] 02/05/17 at 1445 ondansetron (ZOFRAN) injection 4 mg Given 02/05/2017 4 mg 4 mg, Intravenous, ONCE PRN, 1 dose, 16:18 CDT Starting Sat02/05/17 at 1320, Until Sat02/05/17 at 2359, Other..., nausea/vomiting, First line agent. DO NOT ADMINISTER if given intraoperatively oxyCODONE (ROXICODONE, OXY-IR) tablet Given 02/05/2017 5 mg 5-10 mg 14:34 CDT 5-10 mg, Oral, ONCE PRN, 1 dose, Starting Sat02/05/17 at 1320, Until Sat02/05/17 at 2359, Pain PO, For Pain Score <4, PACU (only) in this encounter
--- OUTSIDE RECORDS SUMMARY | 2017-02-22 19:21 | XMS REPORT | Encounter Summary ---
Author Author [facility] Organization [facility] Address Unknown Phone Unavailable Care Team Providers Care Switchboard Operator Helper Name Role Phone PCP Unavailable Encounter Details Date Type Department Care Team Description 03/05/2017 Procedure Pass Gastrointenstinal Endoscopy [address] [place] [address] Social History Tobacco Use Types [...] 03/05/2017 Surgery Hawa Hughes MD ESOPHAGOGASTRODUODENOSCOP [address] [place], [place] [phone] 03/05/2017 Procedure Pass 03/05/2017 [facility] Ian Narvaez MD Esophageal varices (HCC) Encounter [address] [place], [place] [phone] as of this encounter Visit Diagnoses Not on filein this encounter
--- OUTSIDE RECORDS SUMMARY | 2017-02-22 19:21 | XMS REPORT | Encounter Summary ---
Author Author [facility] Organization [facility] Address Unknown Phone Unavailable Care Team Providers Care Special Education Supervisor Name Role Phone PCP Unavailable Encounter Details Date Type Department Care Team Description 02/05/2017 Orders Only [facility] Billie Snyder, [facility] Radiology [address] [facility] [address] [place] [address] Social History Tobacco Use Types [...] 03/05/2017 Surgery Hawa Hughes MD ESOPHAGOGASTRODUODENOSCOP [address] [place] [address] 03/05/2017 Procedure Pass 03/05/2017 Hospital Ian Narvaez MD Esophageal varices (HCC) Encounter [address] [place] [address] as of this encounter Visit Diagnoses Not on filein this encounter
--- OUTSIDE RECORDS SUMMARY | 2017-02-22 19:21 | XMS REPORT | Encounter Summary ---
Author Author [facility] Organization [facility] Address Unknown Phone Unavailable Care Team Providers Care Tunnel Heading Inspector Name Role Phone PCP Unavailable Reason for Visit * Auth/Cert Status Reason Specialty Diagnoses / Referred By Referred To Procedures Contact Contact Diagnoses Esophageal varices (HCC) Hepatocellular carcinoma (HCC) UNKNOWN Procedures ESOPHAGOGASTRODU ODENOSCOPY Encounter Details Date Type Department Care Team Description 03/05/2017 [facility] Ian Narvaez MD Esophageal varices (HCC) Encounter Endoscopy [address] [place] [address] [place], [place] [phone] Social History Tobacco Use Types Packs/Day Years [...] 03/05/2017 Surgery Hawa Hughes MD ESOPHAGOGASTRODUODENOSCOP [address] [place] [address] 03/05/2017 Procedure Pass 03/05/2017 [facility] Ian Narvaez MD Esophageal varices (HCC) Encounter [address] [facility] [address] [place] [address] [phone] as of this encounter Visit Diagnoses Not on filein this encounter Admitting Diagnoses Diagnosis Esophageal varices (HCC) - UNKNOWN Esophageal varices without mention of bleeding Hepatocellular carcinoma (HCC) Malignant neoplasm of liver, primary in this encounter
--- OUTSIDE RECORDS SUMMARY | 2017-02-22 19:21 | XMS REPORT | Encounter Summary ---
Author Author [facility] Organization [facility] Address Unknown Phone Unavailable Care Team Providers Care Coal Conveyor Operator Name Role Phone PCP Unavailable Encounter Details Date Type Department Care Team Description 02/05/2017 Anesthesia [facility] Kiah Vincent MD [facility] Radiology [address] [place] [address] [place], [place] [phone] Social History Tobacco Use Types Packs/Day Years [...] 03/05/2017 Surgery Hawa Hughes MD ESOPHAGOGASTRODUODENOSCOP [address] [place], [place] [phone] 03/05/2017 Procedure Pass 03/05/2017 Hospital Ian Narvaez MD Esophageal varices (HCC) Encounter [address] [place] [address] [phone] as of this encounter Visit Diagnoses Not on filein this encounter Administered Medications Medication Order MAR Action Action Date Dose Rate Site fentaNYL citrate PF (SUBLIMAZE) Given 02/05/2017 50 mcg injection 11:59 CDT INTRA-PROCEDURE MED, Starting Tu02/05/17 at 1159, Until Sat02/05/17 at 1315, Pain Injectable, Anesthesia Intra-op Given 02/05/2017 50 mcg 12:25 CDT lidocaine (PF) injection Given 02/05/2017 100 mg INTRA-PROCEDURE MED, Starting Tu 12:00 CDT 02/05/17 at 1200, Until Sat02/05/17 at 1315, Anesthesia Intra-op ondansetron (ZOFRAN) injection Given 02/05/2017 4 mg Intravenous, INTRA-PROCEDURE MED, 12:41 CDT Starting Sat02/05/17 at 1241, Until Sat02/05/17 at 1315, Nausea/Vomiting Injectable, Anesthesia Intra-op propofol (DIPRIVAN) injection Given 02/05/2017 60 mg INTRA-PROCEDURE MED, Starting Tue 12:00 CDT 02/05/17 at 1200, Until Sat02/05/17 at 1315, Anesthesia Intra-op Given 02/05/2017 40 mg 12:03 CDT rocuronium (ZEMURON) injection Given 02/05/2017 30 mg Intravenous, INTRA-PROCEDURE MED, 12:03 CDT Starting Tu02/05/17 at 1203, Until Sat02/05/17 at 1315, Anesthesia Intra-op sugammadex (BRIDION) injection Given 02/05/2017 200 mg Intravenous, INTRA-PROCEDURE MED, 12:49 CDT Starting Sat02/05/17 at 1249, Until Tu02/05/17 at 1315, Anesthesia Intra-op in this encounter
--- OUTSIDE RECORDS SUMMARY | 2017-02-22 19:22 | XMS REPORT | Encounter Summary ---
Author Author [facility] Organization [facility] Address Unknown Phone Unavailable Care Team Providers Care Pension Adviser Name Role Phone PCP Unavailable Reason for Visit * Reason Comments Follow Up Encounter Details Date Type Department Care Team Description 01/31/2017 Telephone Center for Karina Barajas Follow Up Transplantation-Hepatolog y Clinic [address] [facility] [place] [address] Social History Tobacco Use Types Packs/Day Years [...] ESOPHAGOGASTRODUODENOSCOP [address] [place] [address] 03/05/2017 Procedure Pass 03/05/2017 Hospital Ian Narvaez MD Esophageal varices (HCC) Encounter [address] [place] [address] as of this encounter Visit Diagnoses Not on filein this encounter
--- OUTSIDE RECORDS SUMMARY | 2017-02-22 19:22 | XMS REPORT | Encounter Summary ---
Author Author [facility] Organization [facility] Address Unknown Phone Unavailable Care Team Providers Care Dimpling Machine Operator Name Role Phone PCP Unavailable Encounter Details Date Type Department Care Team Description 01/30/2017 Prep for Case Center for Ian Narvaez MD Transplantation-Hepatolog [address] [facility] y Clinic [address] [place] [address] [facility] [phone] [place] [address] Social History Tobacco Use Types [...] 03/05/2017 Surgery Hawa Hughes MD ESOPHAGOGASTRODUODENOSCOP [address] [facility] [address] [place] [address] 03/05/2017 Procedure Pass 03/05/2017 [facility] Ian Narvaez MD Esophageal varices (HCC) Encounter [address] [place] [address] as of this encounter Visit Diagnoses Not on filein this encounter
--- OUTSIDE RECORDS SUMMARY | 2017-02-22 19:22 | XMS REPORT | Encounter Summary ---
Author Author [facility] Organization [facility] Address Unknown Phone Unavailable Care Team Providers Care Media Production Support Manager Name Role Phone PCP Unavailable Encounter Details Date Type Department Care Team Description 01/30/2017 PAC Office Preoperative Assessment Ian Narvaez MD Hepatocellular carcinoma Visit Clinic [address] (HCC) [address] [place] [address] [place] [address] [phone] Social History Tobacco Use Types Packs/Day Years Used Date Former Smoker Cigarettes 1 50 Quit: 12/17/2015 Smokeless Tobacco: Never Used Alcohol Use Drinks/Week oz/Week Comments No 0 Standard 0.0 drinks or equivalent Sex Assigned at Date Recorded Not on file as of this encounter Last Filed Vital Signs Vital Sign Reading Time Taken Blood Pressure 107/55 01/30/2017 11:46 AM CDT Pulse 67 01/30/2017 11:46 AM CDT Temperature 36.5 C (97.7 F) 01/30/2017 11:46 AM CDT Respiratory Rate - - Oxygen Saturation 95% 01/30/2017 11:46 AM CDT Inhaled Oxygen - - Concentration Weight 109 kg (240 lb 6.4 oz) 01/30/2017 11:46 AM CDT Height 182.9 cm (6') 01/30/2017 11:46 AM CDT Body Mass Index 32.6 01/30/2017 11:46 AM CDT in this encounter Functional Status [...] impairment: No 01/30/2017 as of this encounter Instructions * Pre-Anesthesia Patient Instructions - Billie Larios RN - 01/30/2017 11: 47 AM CDT GENERAL INFORMATION Before you come to the hospital Make arrangements for a responsible adult to drive you home and stay with you for 24 hours following surgery. Bath/Shower Instructions Take a bath or shower using the special soap given to you in PAC. Use half the bottle the night before, and the other half the morning of your procedure. Use clean towels with each bath or shower. Put on clean clothes after bath or shower. Avoid using lotion and oils. If you are having surgery above the waist, wear a shirt that fastens up the front. Sleep on clean sheets if bath or shower is done the night before procedure. Leave money, credit cards, jewelry, and any other valuables at home. [facility] is not responsible for the loss or breakage of personal items. Remove nail irish, makeup and all jewelry (including piercings) before coming to the hospital. The morning of your procedure: brush your teeth and tongue do not smoke do not shave the area where you will have surgery What to bring to the hospital ID/ Insurance Card Stamping Machine Operator card Official documents for legal guardianship Copy of your Living Will, Advanced Directives, and/or Durable Power of Secy Small bag with a few personal belongings CPAP/BiPAP machine (including all supplies) Walker,cane, or motorized scooter Cases for glasses/hearing aids/contact lens (bring solutions for contacts) Dress in clean, loose, comfortable clothing Eating or drinking before surgery Do not eat or drink anything after midnight the day before your procedure ( including gum, mints, candy, or chewing tobacco). Other instructions Notify your surgeon if: there is a possibility that you are you become ill with a cough, fever, sore throat, nausea, vomiting or flu- like symptoms you have any open wounds/sores that are red, painful, draining, or are new since you last saw the doctor you need to cancel your procedure Notify us at [facility]: if you need to cancel your procedure if you are going to be late You will receive your arrival time for the day of surgery from your surgeons office. Arrival at the [facility]: Park in the [place] [facility] located directly across from the main entrance to the hospital. Database Management Specialist parking is available Saturday through Saturday from 7 AM to 4 PM. Have your parking ticket validated at the Information Desk in the hospital lobby. Go to Admissions, located across the lobby from the Information Desk. * Pre-Anesthesia Medication Instructions - Glenda Cheung PHARMD - 01/30/2017 11:30 AM CDT Formatting of this note may be different from the original. YOUR MEDICATIONS: acetaminophen (TYLENOL) 500 mg tablet Take 500 mg by mouth every 6 hours as needed for Pain. Max of 4,000 mg of acetaminophen in 24 hours. albuterol (VENTOLIN HFA, PROAIR HFA, PROVENTIL HFA) 90 mcg/actuation inhaler Inhale 2 Puffs by mouth into the lungs every 6 hours as needed for Wheezing or Shortness of Breath. Shake well before use. albuterol 0.5% (PROVENTIL; VENTOLIN) 2.5 mg/0.5 mL nebulizer solution Inhale 2.5 mg solution by nebulizer as directed every 6 hours as needed for Shortness of Breath or Wheezing. alirocumab (PRALUENT PEN) 75 mg/mL injectable PEN Inject 75 mg under the skin every 14 days. ALPRAZolam (XANAX) 0.25 mg tablet Take 0.25 mg by mouth three times daily as needed for Anxiety. aspirin EC 81 mg tablet Take 81 mg by mouth daily. Take with food. budesonide/formoterol (SYMBICORT HFA) 160/4.5 mcg inhalation Inhale 2 Puffs by mouth into the lungs twice daily. cetirizine (ZYRTEC) 10 mg tablet Take 10 mg by mouth every morning. clopiDOGrel (PLAVIX) 75 mg tablet Take 75 mg by mouth daily. cyclobenzaprine (FLEXERIL) 10 mg tablet Take 10 mg by mouth three times daily as needed for Muscle Cramps. furosemide (LASIX) 20 mg tablet Take 20 mg by mouth daily as needed. isosorbide mononitrate SR (IMDUR) 30 mg tablet Take 30 mg by mouth every morning. lisinopril (PRINIVIL; ZESTRIL) 10 mg tablet Take 5 mg by mouth daily. metoprolol tartrate (LOPRESSOR) 50 mg tablet Take 50 mg by mouth twice daily. mometasone (NASONEX) 50 mcg/actuation nasal spray Apply 2 Sprays to each nostril as directed daily. montelukast (SINGULAIR) 10 mg tablet Take 10 mg by mouth at bedtime daily. naproxen (NAPROSYN) 500 mg tablet Take 500 mg by mouth twice daily with meals. Take with food. nitroglycerin (NITROSTAT) 0.[address] 0.4 mg under tongue every 5 minutes as needed for Chest Pain. Max of 3 tablets, call 911. pantop[address] (PROTONIX) 40 mg tablet Take 40 mg by mouth daily. psyllium (METAMUCIL) 3.4 gram packet Take by mouth at bedtime daily. traMADol (ULTRAM) 50 mg tablet Take 50 mg by mouth every 6 hours as needed for Pain. YOUR MEDICATION INSTRUCTIONS FOR SURGERY: Before surgery Do not start any new vitamins, herbals, or natural supplements before surgery. Stop the following medications 7 days before surgery: Anti-inflammatory medications such as ibuprofen (Advil, Motrin) and naproxen (Aleve) You may use acetaminophen (Tylenol) or tramadol Please follow these instructions regarding your blood thinner medications: Aspirin - Resume now and skip and morning of surgery Pavix - last dose 01/03 Morning of surgery On the morning of surgery, do NOT take these medications: Remaining vitamins/supplements Ointments/creams/lotions Fiber Lisinopril Lasix On the morning of surgery, take ONLY these medications with a sip (1-2 ounces) of water: Pantoprazole Cetirizine Isosorbide Metoprolol Use inhalers as usual If needed: tramadol cyclobenzaprine alprazolam Other information Before surgery, please contact the clinic pharmacist with any medicine updates or questions. E-mail: [email or web address] Before going home from the hospital, please ask your doctor when you should re- start your medicines that were stopped before surgery. in this encounter Progress Notes * Tamar Quintero RN - 01/30/2017 11:30 AM CDT Chart was reviewed by Dr. Vincent and patient is ready to proceed with IR procedure. * Melissa Sultana PHARMD - 01/30/2017 11:30 AM CDT PAC Antiplatelet Plan Note: Jairo Carrillo was seen in the PAC on 01/30/17. As part of the visit, an accurate medication list was obtained and the patient was given pre-op medication instructions for upcoming surgery on 02/05/17. Patient self-elected to hold both Plavix and aspirin on January 03, 2017 in preparation for surgery in spite of instructions for Dr Romano stating he would like him to remain on DAPT for 1 year. Patient under impression these was optional and surgery was iminent. Patient was instructed to resume aspirin at PAC visit. The instruction to resume aspirin was confirmed by phone call with patient on 01/31/17. Per fax from Malissa LUNA with Dr. Romano, the patient may continue to hold Plavix until after procedure. Resume post-operatively when deemed ok to resume by surgeon. The plan above was communicated to the patient and they verbalized understanding. Melissa Sultana PHARMD in this encounter Plan of Treatment Date Type Specialty Care Team Description 03/05/2017 Surgery Hawa Hughes MD ESOPHAGOGASTRODUODENOSCOP [address] [place] [address] [phone] 03/05/2017 Procedure Pass 03/05/2017 [facility] Ian Narvaez MD Esophageal varices (HCC) Encounter [address] [place] [address] [phone] Name Priority Associated Diagnoses Order Schedule ECG 12-LEAD Routine Hepatocellular carcinoma Expected: 01/30/2017, (HCC) Expires: 01/30/2018 as of this encounter Procedures Procedure Name Priority Date/Time Associated Diagnosis Comments ECG-SCAN 02/19/2017 Results for this 12:16 PM CDT procedure are in the results section. in this encounter Results * ECG-SCAN (02/19/2017 12:16 PM) Narrative Ordered by an unspecified provider. * COMPREHENSIVE METABOLIC PANEL (01/30/2017 11:56 AM) Component Value Ref Range Sodium 135 (L) [...] Pharmacist for questions. Specimen Performing Laboratory Blood MAIN LAB [address] [place] [address] * CBC (01/30/2017 11:56 AM) Component Value [...] Performing Laboratory [facility] [address] [place] [address] in this encounter Visit Diagnoses Diagnosis Hepatocellular carcinoma (HCC) Malignant neoplasm of liver, primary in this encounter
--- OUTSIDE RECORDS SUMMARY | 2017-02-22 19:22 | XMS REPORT | Encounter Summary ---
Author Author [facility] Organization [facility] Address Unknown Phone Unavailable Care Team Providers Care Senior Java Architect Name Role Phone PCP Unavailable Reason for Visit * Reason Comments Hepatocellular Carcinoma Encounter Details Date Type Department Care Team Description 01/30/2017 Office Visit Center for Ian Narvaez MD Hepatocellular carcinoma Transplantation-Hepatolog [address] [facility] (HCC) (Primary Dx) y Clinic [address] [place] [address] [facility] [phone] [place] [address] Social History Tobacco Use Types Packs/Day Years Used Date Former Smoker Cigarettes 1 50 Quit: 12/17/2015 Smokeless Tobacco: Never Used Tobacco Cessation: Counseling Given: Yes Alcohol Use Drinks/Week oz/Week Comments No 0 Standard 0.0 drinks or equivalent Sex Assigned at Date Recorded Not on file as of this encounter Last Filed Vital Signs Vital Sign Reading Time Taken Blood Pressure 119/55 01/30/2017 9:02 AM CDT Pulse 78 01/30/2017 9:02 AM CDT Temperature 36.4 C (97.5 F) 01/30/2017 9:02 AM CDT Respiratory Rate 16 01/30/2017 9:02 AM CDT Oxygen Saturation 91% 01/30/2017 9:02 AM CDT Inhaled Oxygen - - Concentration Weight 108.7 kg (239 lb 9.6 oz) 01/30/2017 9:02 AM CDT Height 182.9 cm (6') 01/30/2017 9:02 AM CDT Body Mass Index 32.5 01/30/2017 9:02 AM CDT in this encounter Functional Status [...] 01/30/2017 as of this encounter Instructions * Patient Instructions - Annabelle Jarrell RN - 01/30/2017 9:47 AM CDT Schedule: 1. Return to clinic in 3 months Patient Instructions: 1. Follow with Interventional Radiology and Dr. Rabago as scheduled- you are scheduled today with him at [facility] 2. Weigh the pros and cons of MRI vs. CT and discuss with Dr. Hima Betaty, [facility] [phone] in this encounter Plan of Treatment Date Type Specialty Care Team Description 03/05/2017 Surgery Hawa Hughes MD ESOPHAGOGASTRODUODENOSCOP [address] [place] [address] [phone] 03/05/2017 Procedure Pass 03/05/2017 Hospital Ian Narvaez MD Esophageal varices (HCC) Encounter [address] [place] [address] [phone] as of this encounter Visit Diagnoses Diagnosis Hepatocellular carcinoma (HCC) - Primary Malignant neoplasm of liver, primary in this encounter
--- OUTSIDE RECORDS SUMMARY | 2017-02-22 19:22 | XMS REPORT | Encounter Summary ---
Author Author [facility] Organization [facility] Address Unknown Phone Unavailable Care Team Providers Care Highway Traffic Control Technician Name Role Phone PCP Unavailable Reason for Referral * Radiology Services Status Reason Specialty Diagnoses / Referred By Referred To Procedures Contact Contact No Auth Needed Radiology Diagnoses Gonsalo Rabago [address] Hepatocellular [address] IGNACIO carcinoma (HCC) [address] [place] [address] [place] 5[address] Phone: CT ABDOMEN WO/W [place], [place] [phone] ABDOMEN Phone: W/O & W/CONTRAST [phone] MATERIAL Reason for Visit * Reason Comments Heme/Onc Care * Consult, Test & Treat (Urgent) Status Reason Specialty Diagnoses / Referred By Referred To Procedures Contact Contact No Auth Needed Specialty Oncology Diagnoses Ian Narvaez, Gonsalo Rabago, Services Hepatocellular MD ZHENG Required carcinoma (HCC) [address] rocedures [address] [place] OFFICE/[place] [address] V[place]IT,[place] [address] Phone: [place] PROLONGED SERV, NO [phone] CONTACT, 1ST HR, Fax: 31-60 MINUTES [phone] Encounter Details Date Type Department Care Team Description 01/30/2017 Office Visit [facility] Ian Narvaez MD Hepatocellular carcinoma [facility] - [facility] Exam [address] (HCC) (Primary Dx) [address] [place] [address] [place] [address] [phone] Gonsalo Tee MD [address] [place] [address] [phone] Social History Tobacco Use Types Packs/Day Years Used Date Former Smoker Cigarettes 1 50 Quit: 12/17/2015 Smokeless Tobacco: Never Used Alcohol Use Drinks/Week oz/Week Comments No 0 Standard 0.0 drinks or equivalent Sex Assigned at Date Recorded Not on file as of this encounter Last Filed Vital Signs Vital Sign Reading Time Taken Blood Pressure 141/67 01/30/2017 3:33 PM CDT Pulse 98 01/30/2017 3:33 PM CDT Temperature 36.8 C (98.2 F) 01/30/2017 3:33 PM CDT Respiratory Rate - - Oxygen Saturation 92% 01/30/2017 3:33 PM CDT Inhaled Oxygen - - Concentration Weight 109.5 kg (241 lb 6.4 oz) 01/30/2017 3:33 PM CDT Height 182.9 cm (6' 0.01") 01/30/2017 3:33 PM CDT Body Mass Index 32.73 01/30/2017 3:33 PM CDT in this encounter Functional Status Functional [...] this encounter Instructions * Patient Instructions - Aristeo Mullins RN - 01/30/2017 3:27 PM CDT Formatting of this note may be different from the original. GLENDA Horta RN Melissa Whitener, RN Main Line: [phone] [phone] Nurses: [phone] [employer]: [phone] Chemoembolization for Liver Cancer: The Procedure Chemoembolizationis a way to treat cancer in the liver. It can be used for cancer that starts in the liver. Or it can be used for cancer that has spread( metastasized)to the liver from other parts of the body. The procedure treats only cancer in the liver. It is done by a specially trained doctor called an interventional radiologist. How does chemoembolization work? The hepatic artery is a large blood vessel. It sends blood to the liver. To grow , a liver tumor takes most of its blood from this artery.During the procedure , chemotherapy medicines are put into the hepatic artery. The artery is then blocked off from the rest of the body.This makes sure the medicines stay in the liver. And it cuts off blood to the tumor. The goals of chemoembolization Block the tumors blood flow so it gets no oxygen or nutrients Send high doses of chemotherapy medicines directly to the tumor site Keep chemotherapy medicines in the tumor for long periods of time Reduce side effects to the rest of the body. This is because the medicines do not leave the liver. Getting ready for the procedure Do noteat or drink anything for 6hours before the procedure. Tell your healthcare provider what medicines you take. This includes aspirin , supplements, and herbs. Ask if you should stop taking them. During the procedure When you arrive for the procedure, an IV (intravenous) line will be put into your arm. This line will give you fluids and medicine to prepare your body for the procedure. This preparation may take several hours. To begin the procedure: The healthcare provider puts a long, flexible tube (catheter) into an artery in your groin. The provider puts an X-ray dye (contrast medium) through the catheter. This helps the artery and catheter show up better on X-rays. The provider can see the movement of the catheter on a video monitor. The provider guides the catheter to the hepatic artery in the liver. He or she then moves it to the tumor. The provider injects the chemoembolization medicines through the catheter. He or she then injects a substance that blocks the artery. The catheter is removed. The provider puts pressure is put on the insertion site for 15 minutes. This is to prevent bleeding. You will lie flat for several hours. During this time, an IV line will give you fluids. You will likely stay in the hospital for 3 to 5 days after the procedure. Side effects of chemoembolization Side effects include tiredness, abdominal pain, fever, nausea, and loss of appetite. These may last for several days. Medicines can help lessen certain side effects. What are the risks and complications of chemoembolization? Blood clot in a blood vessel Infection or bruising where the catheter was inserted of normal liver tissue. This may lead to liver failure. Damage to the gallbladderor other nearby organs Problems because of the contrast medium. These might be an allergic reaction or kidney damage. Damage to an artery Date Last Reviewed: 12/31/201419991071-1420 [employer]. [address] [place] [address]. All rights reserved. This information is not intended as a substitute for professional medical care. Always follow your healthcare professional's instructions. INTERVENTIONAL RADIOLOGY DISCHARGE INSTRUCTIONS MICROWAVE ABLATION Microwave [...] or concerns related to the procedure, call [phone] from 7am- 5pm, Saturday-Saturday. After-hours and weekends, please call [phone] and ask for the Interventional Home Care Giver on-call. For procedures performed at the [facility], please call the Radiology dept. [phone], Saturday-Saturday, 8am-5pm. After hours and weekends, please call [phone] and ask for the Interventional Home Care Giver on-call. in this encounter Progress Notes * Gonsalo Rabago MD - 01/30/2017 3:32 PM CDT Formatting of this note may be different from the original. Date of Service: 01/30/2017 Subjective: Reason for Visit: Heme/Onc Care Jairo Carrillo is a 71 y.o. male. Hepatocellular carcinoma (HCC) Staging form: Liver (Excluding Intrahepatic Bile Ducts), AJCC 7th Edition Clinical: Stage I (T1, N0, M0) - Signed by Gonsalo Rabago MD on 01/30/2017 History of Present Illness There is a 71-year-old with incidentally found to have a liver mass this was biopsy-proven hepatocellular carcinoma. Patient denies any history of hepatitis or cirrhosis. Denies any history of encephalopathy or no ascites. He was discussed at our multidisciplinary tumor board and the recommendation was to consider microwave ablation combination with chemoembolization. He unfortunately is not a candidate for liver transplantation due to his coronary artery disease and comorbidities. He is asymptomatic from his disease. Has not lost any weight. Denies any new lumps or bumps under this skin. Denies any bone pains. Review of Systems Constitutional: Negative for fever, fatigue and unexpected weight change. HENT: Negative for mouth sores, sore throat, tinnitus, trouble swallowing and voice change. Respiratory: Negative for cough, choking, chest tightness, shortness of breath and wheezing. Cardiovascular: Negative for chest pain, palpitations and leg swelling. Gastrointestinal: Negative for nausea, vomiting, abdominal pain, diarrhea, constipation, blood in stool, abdominal distention, anal bleeding and rectal pain. Genitourinary: Negative for dysuria, frequency, hematuria and difficulty urinating. Musculoskeletal: Negative for myalgias, back pain, joint swelling, arthralgias, gait problem and neck pain. Skin: Negative for pallor, rash and wound. Neurological: Negative for dizziness, seizures, syncope, speech difficulty, weakness, light-headedness, numbness and headaches. Hematological: Negative for adenopathy. Does not bruise/bleed easily. Psychiatric/Behavioral: Negative for sleep disturbance and dysphoric mood. The patient is not nervous/anxious. Past Medical History Diagnosis Date Obstructive sleep apnea Hypertension Hyperlipidemia Hepatocellular carcinoma (HCC) Zenker diverticulum COPD (chronic obstructive pulmonary disease) (HCC) 2L home O2 at night and occasionally during the day Coronary artery disease Myocardial infarction (HCC) 1996 Supplemental oxygen dependent PRN & 2L at night No Known Allergies Social History Social History Marital Status: Spouse Name: N/A Number of Children: N/A Years of Education: N/A Occupational History Not on file. Social History Main Topics Smoking status: Former Smoker -- 1.00 packs/day for 50 years Types: Cigarettes Quit date: 12/17/2015 Smokeless tobacco: Never Used Alcohol Use: No Drug Use: No Sexual Activity: Yes Other Topics Concern Not on file Social History Narrative No family history on file. Objective: acetaminophen (TYLENOL) 500 mg tablet Take 500 [...] every 6 hours as needed for Pain. Filed Vitals: 01/30/17 1533 BP: 141/67 Pulse: 98 Temp: 36.8 C (98.2 F) Height: 182.9 cm (72.01") Weight: 109.498 kg (241 lb 6.4 oz) SpO2: 92% Body mass index is 32.73 kg/(m^2). Pain Score: Zero Pain Addressed: N/A Patient Evaluated for a Clinical Trial: No treatment clinical trial available for this patient. Eastern Cooperative Oncology Group performance status is 1, Restricted in physically strenuous activity but ambulatory and able to carry out work of a light or sedentary nature, e.g., light house work, office work. Physical Exam Constitutional: He is oriented to person, place, and time. He appears well- developed and well-nourished. No distress. HENT: Head: Normocephalic and atraumatic. Mouth/Throat: Oropharynx is clear and moist. Eyes: Pupils are equal, round, and reactive to light. Right eye exhibits no discharge. No scleral icterus. Neck: Normal range of motion and full passive range of motion without pain. Neck supple. No thyromegaly present. Cardiovascular: Normal rate, regular rhythm, normal heart sounds and intact distal pulses. Exam reveals no friction rub. No murmur heard. Pulmonary/Chest: Breath sounds normal. No respiratory distress. He has no wheezes. He has no rales. Abdominal: Soft. Normal appearance and bowel sounds are normal. He exhibits no distension, no ascites and no mass. There is no splenomegaly or hepatomegaly. There is no tenderness. There is no rebound and no guarding. No hernia. Musculoskeletal: He exhibits no edema or tenderness. Lymphadenopathy: Head (right side): No submental, no submandibular, no tonsillar, no preauricular, no posterior auricular and no occipital adenopathy present. Head (left side): No submental, no submandibular, no tonsillar, no preauricular, no posterior auricular and no occipital adenopathy present. He has no cervical adenopathy. He has no axillary adenopathy. Right: No inguinal and no supraclavicular adenopathy present. Left: No inguinal and no supraclavicular adenopathy present. Neurological: He is alert and oriented to person, place, and time. He has normal strength and normal reflexes. No cranial nerve deficit or sensory deficit. Coordination normal. Skin: Skin is warm. No petechiae, no purpura and no rash noted. No cyanosis. Psychiatric: He has a normal mood and affect. His behavior is normal. Judgment and thought content normal. His mood appears not anxious. He does not exhibit a depressed mood. Comprehensive Metabolic Profile Lab Results Component Value Date/Time SODIUM 135* 01/30/2017 11:56 AM POTASSIUM 4.4 01/30/2017 11:56 AM CHLORIDE 106 01/30/2017 11:56 AM CO2 22 01/30/2017 11:56 AM ANION GAP 7 01/30/2017 11:56 AM BLOOD UREA NITROGEN 24 01/30/2017 11:56 AM CREATININE 1.02 01/30/2017 11:56 AM GLUCOSE 94 01/30/2017 11:56 AM Lab Results Component Value Date/Time CALCIUM 9.2 01/30/2017 11:56 AM ALBUMIN 3.9 01/30/2017 11:56 AM TOTAL PROTEIN 6.5 01/30/2017 11:56 AM ALK PHOSPHATASE 62 01/30/2017 11:56 AM AST (SGOT) 16 01/30/2017 11:56 AM ALT (SGPT) 17 01/30/2017 11:56 AM TOTAL BILIRUBIN 0.6 01/30/2017 11:56 AM EGFR NON >60 01/30/2017 11:56 AM EGFR >60 01/30/2017 11:56 AM CBC w/Diff Lab Results Component Value Date/Time WHITE BLOOD CELLS 11.7* 01/30/2017 11:56 AM RBC 4.83 01/30/2017 11:56 AM HEMOGLOBIN 14.6 01/30/2017 11:56 AM HEMATOCRIT 43.1 01/30/2017 11:56 AM MCV 89.3 01/30/2017 11:56 AM MCH 30.2 01/30/2017 11:56 AM MCHC 33.8 01/30/2017 11:56 AM RDW 14.3 01/30/2017 11:56 AM PLATELET COUNT 255 01/30/2017 11:56 AM MPV 7.5 01/30/2017 11:56 AM Lab Results Component Value Date/Time NEUTROPHILS 57 01/07/2017 09:39 AM ABSOLUTE NEUTROPHIL COUNT 5.30 01/07/2017 09:39 AM LYMPHOCYTES 30 01/07/2017 09:39 AM ABSOLUTE LYMPH COUNT 2.80 01/07/2017 09:39 AM MONOCYTES 10 01/07/2017 09:39 AM ABSOLUTE MONOCYTE COUNT 0.90* 01/07/2017 09:39 AM EOSINOPHILS 3 01/07/2017 09:39 AM ABSOLUTE EOSINOPHIL COUNT 0.20 01/07/2017 09:39 AM BASOPHILS 0 01/07/2017 09:39 AM ABSOLUTE BASOPHIL COUNT 0.00 01/07/2017 09:39 AM IMPRESSION 1. Focal enhancing hepatic mass in the anterior aspect of segment 4. This is biopsy-proven hepatocellular carcinoma by report. No other focal liver lesions are seen. 2. Mild hepatic steatosis with normal size spleen. No obvious portosystemic varices are seen, and there is no ascites. 3. Moderate aortic atherosclerosis with minimal infrarenal abdominal aortic aneurysm measuring 3.0 cm diameter. IMPRESSION 1. No thoracic metastatic disease. 2. Marked emphysema and scattered areas of scarring. Assessment and Plan: Visit Problems Hepatocellular carcinoma (HCC) Overview Was undergoing routine surveillance when he was found to have a 4.7 x 3.6 cm mass in the left lobe of the liver on ultrasound. --August 2016 at ultrasound-guided needle biopsy which later showed benign hepatocytes and blood clot nondiagnostic. This was reviewed at [facility] and later showed well-differentiated hepatocellular carcinoma. Alpha-fetoprotein 2.5 --CT 12/29Focal enhancing hepatic mass in the anterior aspect of segment 4. This is biopsy-proven hepatocellular carcinoma by report. No other focal liver lesions are seen. Mild hepatic steatosis with normal size spleen. No obvious portosystemic varices are seen, and there is no ascites. Moderate aortic atherosclerosis with minimal infrarenal abdominal aortic aneurysm measuring 3.0 cm diameter. --Hepatocellular carcinoma: With no history of liver cirrhosis. Biopsy-proven hepatocellular carcinoma. We discussed his diagnosis stage and prognosis. I explained the natural history of hepatocellular carcinoma. The patient is not is not a candidate for transplant due to his comorbidities and was seen by hepatobiliary surgery and he later declined liver resection. The patient was seen by interventional radiology today and was recommended to proceed with microwave ablation and chemoembolization. We talked about the risks and benefits of chemoembolization which include but are not limited to nausea, vomiting, infection, bleeding, liver injury, abdominal pain, and possibly . After answering his questions and concerns the patient consented to proceed. Depending on the patient's response we may need to discuss molecular analysis of his tissue at some point to look for clinical trials and future therapies. --Coronary artery disease well-controlled. Thank you Dr. Narvaez for referring Mr. Carrillo to the GI oncology clinic at [facility], if you have any questions please don't hesitate to contact me at [phone] Received records from [facility] to establish care with Medical Oncology at our Cancer Center. I reviewed the records as outlined below. I spent greater than 31 minutes reviewing the below records. The records that were obtained/reviewed/summarized are scanned into 02 in outside records / media tab / CareEverywhere tab. I also reviewed his case at our multidisciplinary liver tumor board. in this encounter Plan of Treatment Date Type Specialty Care Team Description 03/05/2017 Surgery Hawa Hughes MD ESOPHAGOGASTRODUODENOSCOP [address] [place] [address] 03/05/2017 Procedure Pass 03/05/2017 Hospital Ian Narvaez MD Esophageal varices (HCC) Encounter [address] [place] [address] Name Priority Associated Diagnoses Order Schedule COMPREHENSIVE METABOLIC PANEL Routine Hepatocellular carcinoma Expected : 03/13/2017 (HCC) (Approximate), Expires: 03/13/2018 CBC AND DIFF Routine Hepatocellular carcinoma Expected: 03/13/2017 (HCC) (Approximate), Expires: 03/13/2018 PROTIME INR (PT) Routine Hepatocellular carcinoma Expected: 03/13/2017 (HCC) (Approximate), Expires: 03/13/2018 ALPHA FETO PROTEIN (AFP) Routine Hepatocellular carcinoma Expected: (HCC) (Approximate), Expires: 03/13/2018 CT ABDOMEN WO/W CONTRAST Routine Hepatocellular carcinoma Expected: (HCC) (Approximate), Expires: 01/30/2018 as of this encounter Visit Diagnoses Diagnosis Hepatocellular carcinoma (HCC) - Primary Malignant neoplasm of liver, primary in this encounter
--- OUTSIDE RECORDS SUMMARY | 2017-02-22 19:22 | XMS REPORT | Encounter Summary ---
Author Author [facility] Organization [facility] Address Unknown Phone Unavailable Care Team Providers Care Cathode Ray Tube Assembler Name Role Phone PCP Unavailable Reason for Visit * Reason Comments Patient Reminder Call Encounter Details Date Type Department Care Team Description 01/24/2017 Telephone Center for Ian Narvaez MD Patient Reminder Call Transplantation-Hepatolog [address] Clinic [address] [place] [address] [facility] [phone] [place] [address] Social History Tobacco Use Types Packs/Day Years Used Date Former Smoker Cigarettes 1 50 Smokeless Tobacco: Former Quit: User 12/14/2015 Alcohol Use Drinks/Week oz/Week Comments No 0 Standard 0.0 drinks or equivalent Sex Assigned at Date Recorded Not on file as of this encounter Functional Status Functional Status Response Date of Assessment Does the patient have a hearing impairment: No 01/07/2017 Does the patient have a visual impairment: Yes 01/07/2017 Does the patient have impaired ambulation: No 01/07/2017 Does the patient have an activity of daily living No 01/07/2017 (ADL) impairment: Does the patient have an instrumental activity of No 01/07/2017 daily living (IADL) impairment: Cognitive Status Response Date of Assessment Does the patient have a cognitive impairment: No 01/07/2017 as of this encounter Plan of Treatment Date Type Specialty Care Team Description 03/05/2017 Surgery Hawa Hughes MD ESOPHAGOGASTRODUODENOSCOP [address] [place] [address] 03/05/2017 Procedure Pass 03/05/2017 [facility] Ian Narvaez MD Esophageal varices (HCC) Encounter [address] [place] [address] as of this encounter Visit Diagnoses Not on filein this encounter
--- OUTSIDE RECORDS SUMMARY | 2017-02-22 19:22 | XMS REPORT | Encounter Summary ---
Author Author [facility] Organization [facility] Address Unknown Phone Unavailable Care Team Providers Care Firearms Assembly Supervisor Name Role Phone PCP Unavailable Reason for Referral * Radiology Services Status Reason Specialty Diagnoses / Referred By Referred To Procedures Contact Contact No Auth Needed Radiology Diagnoses Ian Narvaez, [facility] HCC [address] [facility] (hepatocellular [address] carcinoma) (HCC) [place], [place] P [address] [address] rocedures [place], [place] Phone: [facility] [address] DE OFFICE/OUTPT Phone: VISIT,QAMARLARRY Maverick [phone] Encounter Details Date Type Department Care Team Description 01/18/2017 Ancillary Center for Ian Narvaez MD HCC (hepatocellular Orders Transplantation-Hepatolog [address] carcinoma) (HCC) ( Primary y Clinic [address] Dx) [address] [place] [address] [facility] [phone] [place] [address] Social History Tobacco Use Types [...] 03/05/2017 Surgery Hawa Hughes MD ESOPHAGOGASTRODUODENOSCOP [address] [place] [address] 03/05/2017 Procedure Pass 03/05/2017 [facility] Ian Narvaez MD Esophageal varices (HCC) Encounter [address] [place] [address] Name Priority Associated Diagnoses Date/Time CNC EVALUATION Routine HCC (hepatocellular 01/30/2017 10:21 AM CDT carcinoma) (HCC) Name Priority Associated Diagnoses Order Schedule CNC EVALUATION Routine HCC (hepatocellular Expected: 01/18/2017 carcinoma) (HCC) (Approximate), Expires: 01/18/2018 as of this encounter Visit Diagnoses Diagnosis HCC (hepatocellular carcinoma) (HCC) - Primary Malignant neoplasm of liver, primary in this encounter
--- OUTSIDE RECORDS SUMMARY | 2017-02-22 19:22 | XMS REPORT | Encounter Summary ---
Author Author [facility] Organization [facility] Address Unknown Phone Unavailable Care Team Providers Care Gas Inspector Name Role Phone PCP Unavailable Encounter Details Date Type Department Care Team Description 01/30/2017 Orders Only [facility] Monalisa Felton RN Hepatocellular carcinoma Hospital Radiology (HCC) (Primary Dx) [address] [place] [address] Social History Tobacco Use Types [...] ESOPHAGOGASTRODUODENOSCOP [address] [place] [address] 03/05/2017 Procedure Pass 03/05/2017 Hospital Ian Narvaez MD Esophageal varices (HCC) Encounter [address] [place] [address] as of this encounter Results * COMPREHENSIVE METABOLIC PANEL (01/30/2017 11:56 AM) [...] Performing Laboratory Blood [facility] [address] [place] [address] * CBC (01/30/2017 11:56 AM) Component Value [...] Performing Laboratory Blood [facility] [address] [place] [address] in this encounter Visit Diagnoses Diagnosis Hepatocellular carcinoma (HCC) - Primary Malignant neoplasm of liver, primary in this encounter
--- OUTSIDE RECORDS SUMMARY | 2017-02-22 19:22 | XMS REPORT | Encounter Summary ---
Author Author [facility] Organization [facility] Address Unknown Phone Unavailable Care Team Providers Care Sheet Metal Work Furnace Installer Name Role Phone PCP Unavailable Encounter Details Date Type Department Care Team Description 01/30/2017 Orders Only Nhan Beck MD [address] [place] [address] [address] [place] [address] [phone] Social History Tobacco Use Types Packs/Day Years [...] 03/05/2017 Surgery Hawa Hughes MD ESOPHAGOGASTRODUODENOSCOP [address] [place] [address] [phone] 03/05/2017 Procedure Pass 03/05/2017 Hospital Ian Narvaez MD Esophageal varices (HCC) Encounter [address] [place] [address] [phone] as of this encounter Visit Diagnoses Not on filein this encounter
--- OUTSIDE RECORDS SUMMARY | 2017-02-22 19:22 | XMS REPORT | Encounter Summary ---
Author Author [facility] Organization [facility] Address Unknown Phone Unavailable Care Team Providers Care Seismograph Shooter Name Role Phone PCP Unavailable Reason for Referral * Radiology Services Status Reason Specialty Diagnoses / Referred By Referred To Procedures Contact Contact No Auth Needed Radiology Diagnoses Ian Narvaez Mob Ct Hepatocellular MD Chav[address] carcinoma (HCC) [address] [place] [address] 2ND FLOOR rocedures MS [address] [place], [place] [address] CONTRAST [address] Phone: * Radiology Services Status Reason Specialty Diagnoses / Referred By Referred To Procedures Contact Contact No Auth Needed Radiology Diagnoses Ian Narvaez Mob Ct Hepatocellular MD Chavira [address] carcinoma (HCC) [address] [place] [address] 2ND FLOOR rocedures MS [address] [place], [place] [address] CONTRAST [address] Phone: Reason for Visit * Radiology Services Status Reason Specialty Diagnoses / Referred By Referred To Procedures Contact Contact No Auth Needed Radiology Diagnoses Ian Narvaez Mob Ct Hepatocellular [address] carcinoma (HCC) [address] 2ND FLOOR rocedures MS [address] [place], [place] [address] CONTRAST [address] Phone: Encounter Details Date Type Department Care Team Description 01/30/2017 Hospital [facility] Ian Nravaez MD Encounter Hospital Radiology [address] [place] [address] 2ND FLOOR [phone] [place] [address] [phone] Social History Tobacco Use Types Packs/Day Years [...] impairment: No 01/30/2017 as of this encounter Medications at Time of Discharge [...] Shortness of Breath. Shake well before use. alirocumab (PRALUENT PEN) Inject 75 mg under [...] times daily as needed for Muscle Cramps. isosorbide mononitrate SR Take 30 mg by [...] mouth at 10 mg tablet bedtime daily. nitroglycerin (NITROSTAT) Place 0.4 mg under tongue 0.4 mg tablet every 5 minutes as needed for Chest Pain. Max of 3 tablets, call 911. traMADol (ULTRAM) 50 mg Take 50 mg by mouth every tablet 6 hours as needed for Pain. as of this encounter Plan of Treatment Date Type Specialty Care Team Description 03/05/2017 Surgery Hawa Hughes MD ESOPHAGOGASTRODUODENOSCOP [address] [place], [place] [phone] 03/05/2017 Procedure Pass 03/05/2017 [facility] Ian Narvaez MD Esophageal varices (HCC) Encounter [address] [place], [place] [id number] as of this encounter Results * CT CHEST WO CONTRAST (01/30/2017 7:39 [...] Quincy Jaramillo M.D. on 01/30/2017 8:07 AM. in this encounter Visit Diagnoses Diagnosis Hepatocellular carcinoma (HCC) Malignant neoplasm of liver, primary in this encounter
--- OUTSIDE RECORDS SUMMARY | 2017-02-22 19:22 | XMS REPORT | Encounter Summary ---
Author Author [facility] Organization [facility] Address Unknown Phone Unavailable Care Team Providers Care Assurance Sourcing Manager Name Role Phone PCP Unavailable Reason for Referral * Radiology Services Status Reason Specialty Diagnoses / Referred By Referred To Procedures Contact Contact No Auth Needed Radiology Diagnoses Ian Narvaez Bh2 Ir HCC MD Fan [address] (hepatocellular [address] FLO[address] carcinoma) (HCC) [place], [place] P MS [address] [address] [place], [place] Phone: CNC EVALUATION [address] [place] OFFICE/OUTPT Phone: [facility] [phone] * Radiology Services Status Reason Specialty Diagnoses / Referred By Referred To Procedures Contact Contact No Auth Needed Radiology Diagnoses Ian Narvaez Bh2 Ir HCC MD [address] (hepatocellular [address] F[address] carcinoma) (HCC) [place], [place] P MS [address] [address] [place], [place] Phone: CNC EVALUATION [id number] [place] OFFICE/OUTPT Phone: VISIT,[facility] [phone] Reason for Visit * Radiology Services Status Reason Specialty Diagnoses / Referred By Referred To Procedures Contact Contact No Auth Needed Radiology Diagnoses Ian Narvaez Bh2 Ir HCC MD [address] (hepatocellular [address] F[address] carcinoma) (HCC) [place], [place] P MS [address] [address] [place], [place] Phone: CNC EVALUATION [address] [place] OFFICE/OUTPT Phone: [facility]AR [facility] I [phone] Encounter Details Date Type Department Care Team Description 01/30/2017 Hospital [facility] Ian Narvaez MD Encounter Hospital Radiology [address] [address] [place] [address] [phone] Social History Tobacco Use Types Packs/Day Years [...] ESOPHAGOGASTRODUODENOSCOP [address] [place] [address] 03/05/2017 Procedure Pass 03/05/2017 [facility] Ian Narvaez MD Esophageal varices (HCC) Encounter [address] [place] [address] Name Priority Associated Diagnoses Date/Time CNC EVALUATION Routine HCC (hepatocellular 01/30/2017 10:21 AM CDT carcinoma) (HCC) Name Priority Associated Diagnoses Order Schedule CNC EVALUATION Routine HCC (hepatocellular 1 Occurrences starting carcinoma) (HCC) 01/30/2017 until 01/30/2017 as of this encounter Visit Diagnoses Diagnosis HCC (hepatocellular carcinoma) (HCC) Malignant neoplasm of liver, primary in this encounter
--- OUTSIDE RECORDS SUMMARY | 2017-02-22 19:23 | XMS REPORT | Encounter Summary ---
Author Author [facility] Organization [facility] Address Unknown Phone Unavailable Care Team Providers Care Guest Services Name Role Phone PCP Unavailable Reason for Visit * Reason Comments Records Request Encounter Details Date Type Department Care Team Description 01/09/2017 Telephone Center for Ian Narvaez MD Records Request Transplantation-Hepatolog [address] y Clinic [address] [place] [address] [facility] [phone] [place] [address] Social History Tobacco Use Types [...] Surgery Hawa Hughes MD ESOPHAGOGASTRODUODENOSCOP [address] [facility] Y MS [address] [place] [address] 03/05/2017 Procedure Pass 03/05/2017 [facility] Ian Narvaez MD Esophageal varices (HCC) Encounter [address] [place] [address] as of this encounter Visit Diagnoses Not on filein this encounter
--- OUTSIDE RECORDS SUMMARY | 2017-02-22 19:23 | XMS REPORT | Encounter Summary ---
Author Author [facility] Organization [facility] Address Unknown Phone Unavailable Care Team Providers Care Emergency Crew Supervisor Name Role Phone PCP Unavailable Encounter Details Date Type Department Care Team Description 01/18/2017 Ancillary [facility] Nhan Cruz MD HCC ( hepatocellular Orders Hospital Radiology [address] carcinoma) (HCC) (Primary [address] Dx) 2ND [place] [address] [place], [place] [phone] Social History Tobacco Use Types Packs/Day Years [...] 03/05/2017 Surgery Hawa Hughes MD ESOPHAGOGASTRODUODENOSCOP [address] [place], [place] [phone] 03/05/2017 Procedure Pass 03/05/2017 [facility] Ian Narvaez MD Esophageal varices (HCC) Encounter [address] [facility] MS [address] [place], [place] [id number] as of this encounter Visit Diagnoses Diagnosis HCC (hepatocellular carcinoma) (HCC) - Primary Malignant neoplasm of liver, primary in this encounter
--- OUTSIDE RECORDS SUMMARY | 2017-02-22 19:23 | XMS REPORT | Encounter Summary ---
Author Author [facility] Organization [facility] Address Unknown Phone Unavailable Care Team Providers Care Patent Attorney Name Role Phone PCP Unavailable Encounter Details Date Type Department Care Team Description 01/18/2017 Telephone The [facility] Billie Calvillo RN Hospital Radiology [address] [facility] 2ND [place] [address] Social History Tobacco Use Types [...] impairment: No 01/07/2017 as of this encounter Progress Notes * Billie Calvillo RN - 01/18/2017 11:53 AM CDT Interventional Radiology Progress Note Patient scheduled for IR consult on 01/30 at 10:30 am with a PAT appointment to follow at 11:30 am. Pt verbalized understanding. Billie CALVILLO RN in this encounter Plan of Treatment Date Type Specialty Care Team Description 03/05/2017 Surgery Hawa Hughes MD ESOPHAGOGASTRODUODENOSCOP [address] [place] [address] 03/05/2017 Procedure Pass 03/05/2017 [facility] Ian Narvaez MD Esophageal varices (HCC) Encounter [address] [place] [address] as of this encounter Visit Diagnoses Not on filein this encounter
--- OUTSIDE RECORDS SUMMARY | 2017-02-22 19:23 | XMS REPORT | Encounter Summary ---
Author Author [facility] Organization [facility] Address Unknown Phone Unavailable Care Team Providers Care Binding Folder Machine Name Role Phone PCP Unavailable Reason for Referral * Radiology Services Status Reason Specialty Diagnoses / Referred By Referred To Procedures Contact Contact No Auth Needed Radiology Diagnoses Ian Narvaez Mob Ct Hepatocellular [address] [facility] carcinoma (HCC) [address] [place] [address] 2ND FLOOR rocedures MS [address] [place], [place] [address] CONTRAST [address] Phone: Reason for Visit * Reason Comments Other CT chest order Encounter Details Date Type Department Care Team Description 01/07/2017 Telephone Center for Ian Narvaez MD Other (CT chest order) Transplantation-Hepatolog [address] y Clinic [place] [address] [place] [address] [facility] [phone] [place] [address] Social History Tobacco Use Types [...] 03/05/2017 Surgery Hawa Hughes MD ESOPHAGOGASTRODUODENOSCOP [address] [place] [address] 03/05/2017 Procedure Pass 03/05/2017 [facility] Ian Narvaez MD Esophageal varices (HCC) Encounter [address] [place] [address] as of this encounter Results [...]
--- OUTSIDE RECORDS SUMMARY | 2017-02-22 19:23 | XMS REPORT | Encounter Summary ---
Author Author [facility] Organization [facility] Address Unknown Phone Unavailable Care Team Providers Care Compressed Gas Tester Name Role Phone PCP Unavailable Encounter Details Date Type Department Care Team Description 01/07/2017 Procedure Pass [facility] Radiology [address] [place] [address] Social History Tobacco Use Types Packs/Day Years Used Date Former Smoker Cigarettes 1 50 Smokeless Tobacco: Former Quit: User 12/14/2015 Alcohol Use Drinks/Week oz/Week Comments No 0 Standard 0.0 drinks or equivalent Sex Assigned at Date Recorded Not on file as of this encounter Last Filed Vital Signs Vital Sign Reading Time Taken Blood Pressure - - Pulse - - Temperature - - Respiratory Rate - - Oxygen Saturation - - Inhaled Oxygen - - Concentration Weight 111.1 kg (245 lb) 01/07/2017 10:51 AM CDT Height 182.9 cm (6') 01/07/2017 10:51 AM CDT Body Mass Index 33.23 01/07/2017 10:51 AM CDT in this encounter Functional Status [...] 03/05/2017 Surgery Hawa Hughes MD ESOPHAGOGASTRODUODENOSCOP [address] [place] [address] [phone] 03/05/2017 Procedure Pass 03/05/2017 [facility] Ian Narvaez MD Esophageal varices (HCC) Encounter [address] [place] [address] [phone] as of this encounter Visit Diagnoses Not on filein this encounter
--- OUTSIDE RECORDS SUMMARY | 2017-02-22 19:23 | XMS REPORT | Encounter Summary ---
Author Author [facility] Organization [facility] Address Unknown Phone Unavailable Care Team Providers Care Cake Press Operator Name Role Phone PCP Unavailable Reason for Referral * Consult, Test & Treat (Urgent) Status Reason Specialty Diagnoses / Referred By Referred To Procedures Contact Contact No Auth Needed Specialty Oncology Diagnoses Ian Narvaez, Eliot-Jada , [place], Services Hepatocellular MD Required carcinoma (HCC) [address] rocedures MS [address] [place] OFFICE/[place] [address] VISIT,[facility] [place] [address] Phone: [place] PROLONGED SERV, NO [phone] CONTACT, 1ST HR, Fax: 31-60 MINUTES [phone] * Radiology Services Status Reason Specialty Diagnoses / Referred By Referred To Procedures Contact Contact No Auth Needed Radiology Diagnoses Ian Narvaez, [facility] Ir Hepatocellular [address] carcinoma (HCC) [address] [place], [place] rocedures MS [address] [address] [place] Phone: EMBOLIZATION [address] [place] VASCULAR Phone: EMBOLIZE/OCCLUDE [phone] ORGAN TUMOR Fax: INFARCT [phone] CHG ANGIOGRAPHY VISCERAL SLCTV/SUPRASLCTV RS&I WA SLCTV CATHJ 3RD+ ORD SLCTV ABDL PEL/LXTR BRNCH CHG ANGRPH SLCTV EA VSL STUDIED AFTER BASIC XM RS&I WA CHEMOTHERAPY ADMIN INTRA-ARTERIAL PUSH TQ Reason for Visit * Reason Comments Follow-up Phone Call Encounter Details Date Type Department Care Team Description 01/16/2017 Telephone Center for Lois Tidwell APRN Follow-up Phone Call Transplantation-Hepatolog [address] [facility] y Clinic [address] [place] [address] [facility] [phone] [place] [address] Social History Tobacco Use Types [...] 03/05/2017 Surgery Hawa Hughes MD ESOPHAGOGASTRODUODENOSCOP [address] [facility] Y [address] [place] [address] [phone] 03/05/2017 Procedure Pass 03/05/2017 [facility] Ian Narvaez MD Esophageal varices (HCC) Encounter [address] [facility] MS [address] [place] [address] Name Priority Associated Diagnoses Order Schedule AMB REFERRAL TO ONCOLOGY Routine Hepatocellular carcinoma Ordered: 01/16 (HCC) as of this encounter Results * IR [...] artery. The needle was exchanged for 4 Austrian transitional catheter. The wire and inner dilator were removed and 0.035 Bentson wire was advanced to the artery. The transitional catheter was exchanged for a 5 Austrian vascular sheath attached to a heparinized, pressurized [...] The microcatheter was removed and the 5 Austrian catheter was repositioned into the lower abdominal [...] artery. The needle was exchanged for 4 Austrian transitional catheter. The wire and inner dilator were removed and 0.035 Bentson wire was advanced to the artery. The transitional catheter was exchanged for a 5 Austrian vascular sheath attached to a heparinized, pressurized [...] The microcatheter was removed and the 5 Austrian catheter was repositioned into the lower abdominal [...]
--- OUTSIDE RECORDS SUMMARY | 2017-02-22 19:23 | XMS REPORT | Encounter Summary ---
Author Author [facility] Organization [facility] Address Unknown Phone Unavailable Care Team Providers Care Copy Lathe Tender Name Role Phone PCP Unavailable Reason for Visit * Auth/Cert Status Reason Specialty Diagnoses / Referred By Referred To Procedures Contact Contact Encounter Details Date Type Department Care Team Description 01/07/2017 [facility] Ian Narvaez MD Liver cell carcinoma Encounter [address] (HCC) [place] [address] [address] [place] [address] [phone] Social History Tobacco Use Types Packs/Day Years [...] impairment: No 01/07/2017 as of this encounter Medications at Time [...] tablet 6 hours as needed for Pain. levalbuterol (XOPENEX) Inhale 0.63 mg by mouth 01/30/2017 0.63 mg/3 mL nebu into the lungs as Needed. Psyllium 3.4 gram/5.8 Take 1 % by mouth. 01/30/2017 gram powd as of this encounter Plan of Treatment Date Type Specialty Care Team Description 03/05/2017 Surgery Hawa Hughes MD ESOPHAGOGASTRODUODENOSCOP [address] [place] [address] [phone] 03/05/2017 Procedure Pass 03/05/2017 Hospital Ian Narvaez MD Esophageal varices (HCC) Encounter [address] [place] [address] as of this encounter Results * HEMOGLOBIN A1C (01/07/2017 9:39 AM) Component Value Ref Range Hemoglobin A1C 5.9 4.0 - 6.0 % Comment: The ADA recommends that most patients with type 1 and type 2 diabetes maintain an A1c level <7%. Specimen Performing Laboratory Blood MAIN LAB [address] [place] [address] * LIPID PROFILE (01/07/2017 9:39 AM) Component [...] Huddleston et al. Am J. Cardiol. 2008, 101:5527-2374. The "goal" should be less than 130 mg/dL, but will vary according to risk factors. Specimen Performing Laboratory Blood MAIN LAB [address] [place] [address] * HEPATITIS C AB (01/07/2017 9:39 AM) Component Value Ref Range Anti HCV NEG Specimen Performing Laboratory Blood MAIN LAB [address] [place] [address] * HEPATITIS B SURFACE AG (01/07/2017 9:39 AM) Component Value Ref Range HBsAg NEG Specimen Performing Laboratory Blood MAIN LAB [address] [place] [address] * HEPATITIS B SURFACE AB (01/07/2017 9:39 AM) Component Value Ref Range Anti HBs 3.7 mIU/ml Comment: Hepatitis B Surface Antibody Reference Ranges >12.0 Positive 8.0-12.0 Equivocal <8.0 Negative Specimen Performing Laboratory Blood MAIN LAB [address] [place] [address] * HEPATITIS A IGG (01/07/2017 9:39 AM) Component Value Ref Range Hepatitis A IGG POS Note: Test type and methodology has changed. The [facility] lab has discontinued the test for Total Hep A Immunoglobulin. This test has been replaced with more specific testing. The tests for Hep A IgG and Hep A IgM are both now available and can be ordered. Specimen Performing Laboratory Blood MAIN LAB [address] [place] [address] * ALPHA FETO PROTEIN (AFP) (01/07/2017 9:39 AM) Component Value Ref Range Alpha Feto Protein 4.0 0.0 - 15.0 NG/ML Specimen Performing Laboratory Blood MAIN LAB [address] [place] [address] * PROTIME INR (PT) (01/07/2017 9:39 AM) Component Value Ref Range INR 1.0 0.8 - 1.2 Specimen Performing Laboratory Blood MAIN LAB [address] [place] [address] * COMPREHENSIVE METABOLIC PANEL (01/07/2017 9:39 AM) Component Value Ref Range Sodium 139 137 - 147 MMOL/L Potassium 4.2 3.5 - 5.1 MMOL/L Chloride 104 98 - 110 MMOL/L Glucose 96 70 - 100 MG/DL Blood Urea Nitrogen 17 7 - 25 MG/DL Creatinine 1.15 0.4 - 1.24 MG/DL Calcium 9.5 8.5 - 10.6 MG/DL Total Protein 7.4 6.0 - 8.0 G/DL Total Bilirubin 0.4 0.3 - 1.2 MG/DL Albumin 4.2 3.5 - 5.0 G/DL Alk Phosphatase 85 25 - 110 U/L AST (SGOT) 15 7 - 40 U/L CO2 27 21 - 30 MMOL/L ALT (SGPT) 15 7 - 56 U/L Anion Gap 8 3 - 12 eGFR Non >60 >60 [...] Performing Laboratory Blood [facility] MAIN LAB [address] [place] [address] * CBC AND DIFF (01/07/2017 9:39 AM) [...] - 0.20 K/UL Specimen Performing Laboratory Blood [facility] MAIN LAB [address] [place] [address] in this encounter Visit Diagnoses Diagnosis Hepatocellular carcinoma (HCC) Malignant neoplasm of liver, primary Encounter for observation for other suspected diseases and conditions ruled out Chronic obstructive pulmonary disease, unspecified COPD type Abnormal finding of blood chemistry Other abnormal blood chemistry Other specified disorders of carbohydrate metabolism (HCC) in this encounter Admitting Diagnoses Diagnosis Liver cell carcinoma (HCC) Liver cell carcinoma Encounter for observation for other suspected diseases and conditions ruled out Chronic obstructive pulmonary disease, unspecified (HCC) Chronic obstructive pulmonary disease, unspecified Abnormal finding of blood chemistry, unspecified in this encounter
--- OUTSIDE RECORDS SUMMARY | 2017-02-22 19:23 | XMS REPORT | Encounter Summary ---
Author Author [facility] Organization [facility] Address Unknown Phone Unavailable Care Team Providers Care Trouble Locater Name Role Phone PCP Unavailable Encounter Details Date Type Department Care Team Description 01/10/2017 [facility] Omi Narvaez MD Malignant neoplasm of Encounter [address] hepatic flexure ([place]) [place] [address] [address] [place] [address] [phone] Social History Tobacco Use Types Packs/Day Years [...] 03/05/2017 Surgery Hawa Hughes MD ESOPHAGOGASTRODUODENOSCOP [address] [place] [address] [phone] 03/05/2017 Procedure Pass 03/05/2017 Hospital Omi Narvaez MD Esophageal varices (HCC) Encounter [address] [facility] [address] [place] [address] as of this encounter Results * PATHOLOGY REPORTS FROM OUTSIDE SCAN (01/23/2017 7:03 AM) Narrative Ordered by an unspecified provider. * OUTSIDE PATHOLOGY CONSULT (01/10/2017 7:27 AM) Component Value Ref Range PATHOLOGY REPORT [facility] [email or web address] Tiffani Carreno MD, PhD, Director of Anatomic Pathology Department of Pathology and Laboratory Medicine [address] [facility] [place] [address] Surgical Pathology Office: [phone] PATHOLOGY CONSULTATION NAME: XIMENA PARRA SURG PATH #: [id number] MR #: [id number] ALT ID #: LOCATION: [facility] DATE OF PROCEDURE: 01/10/2017 AGE: 71 SEX: M DATE RECEIVED: 01/10/2017 : 1945 TIME RECEIVED: : PHYSICIAN: OMI NARVAEZ Cassandra DATE OF REPORT: 01/10/2017 COPY TO: DATE OF PRINTIN01/10/2017 ################################################## ###################### Final Diagnosis: A. Outside case [id number] (Date Collected: 11/28/2016): 1. Liver mass, CT-Guided core needle biopsy: Well differentiated hepatocellular neoplasm, consistent with well-differentiated hepatocellular carcinoma. Comment: Sections of the liver biopsy show minute needle core biopsy fragments of hepatic tissue with abnormal architecture including focal pseudoacinar formation and focally widened hepatic plates. It is noted that this case was sent for consultation to the [facility] in [facility] and reviewed by Dr. Mir Barry. Dr. Barry comments that "I agree with the assessment that the biopsy specimen shows a well differentiated hepatocellular neoplasm. To further characterize the neoplasm, additional stains were performed at the [facility] and show focal loss of reticulin, a mildly increased proliferative rate by Ki-67, and patchy glypican three staining. Hep par in origin nature positive, confirming hepatic differentiation. These findings are consistent with a well differentiated hepatocellular carcinoma." Please note, only one H and E stained section was received for review. Special stains performed in [facility] and also at the [facility] are not received for review. Attestation: By this signature, I attest that I have personally formulated the final interpretation expressed in this report and that the above diagnosis is based upon my examination of the slides and/or other material indicated in this report. +++Electronically Signed Out+++ pms01/10/2017 Interpreted by: Mireya Colbert MD, Attending Physician ################################################## ###################### Material Received: A: Outside Slides x1 [id number], [facility], Department of Pathology, [address] [place] [address] History: 71-year-old male Gross Description: A. Received are one (1) outside slide labeled "[id number]" and a properly identified surgical pathology report from [facility], Department of Pathology, [address] [place] [address] pms01/10/2017 If immunohistochemical stains and/or in situ hybridization are cited in this report, the performance characteristics were determined by the Department of Pathology and Laboratory Medicine of the [facility] ([employer]) in compliance with CLIA'88 regulations. Some of these tests rely on the use of "analyte specific reagents" and are subject to specific labeling requirements by the FDA. Known positive and negative control tissues demonstrate appropriate staining. This testing was developed by the Department of Pathology and Laboratory Medicine of the [facility]. It has not been cleared or approved by the FDA. The FDA has determined that such clearance or approval is not necessary. Specimen Performing Laboratory [facility] RESULTS in this encounter Visit Diagnoses Not on filein this encounter Admitting Diagnoses Diagnosis Malignant neoplasm of hepatic flexure (HCC) Malignant neoplasm of hepatic flexure in this encounter
--- OUTSIDE RECORDS SUMMARY | 2017-02-22 19:23 | XMS REPORT | Encounter Summary ---
Author Author [facility] Organization [facility] Address Unknown Phone Unavailable Care Team Providers Care Banking Consultant Name Role Phone PCP Unavailable Reason for Visit * Reason Comments Other Encounter Details Date Type Department Care Team Description 01/07/2017 Telephone Center for Ian Narvaez MD Other Transplantation-Hepatolog [address] [facility] y Clinic [address] [place] [address] [facility] [phone] [place] [address] Social History Tobacco Use Types [...] 03/05/2017 Surgery Hawa Hughes MD ESOPHAGOGASTRODUODENOSCOP [address] [facility] Y [address] [place] [address] 03/05/2017 Procedure Pass 03/05/2017 [facility] Ian Narvaez MD Esophageal varices (HCC) Encounter [address] [place] [address] as of this encounter Visit Diagnoses Not on filein this encounter
--- OUTSIDE RECORDS SUMMARY | 2017-02-22 19:23 | XMS REPORT | Encounter Summary ---
Author Author [facility] Organization [facility] Address Unknown Phone Unavailable Care Team Providers Care Stunt Man Name Role Phone PCP Unavailable Reason for Visit * Reason Comments Navigation Assessment Encounter Details Date Type Department Care Team Description 01/16/2017 Telephone [facility] Gonsalo Rabago MD Navigation Assessment [facility] Exam [address] [place] [address] [place] [address] [phone] Social History Tobacco Use Types Packs/Day Years [...] 03/05/2017 Surgery Hawa Hughes MD ESOPHAGOGASTRODUODENOSCOP [address] [place] [address] [phone] 03/05/2017 Procedure Pass 03/05/2017 [facility] Ian Narvaez MD Esophageal varices (HCC) Encounter [address] [facility] [address] [place] [address] as of this encounter Visit Diagnoses Not on filein this encounter
--- OUTSIDE RECORDS SUMMARY | 2017-02-22 19:24 | XMS REPORT | Encounter Summary ---
Author Author [facility] Organization [facility] Address Unknown Phone Unavailable Care Team Providers Care Relationship Consultant Name Role Phone PCP Unavailable Reason for Referral * Radiology Services Status Reason Specialty Diagnoses / Referred By Referred To Procedures Contact Contact Authorized Transplant Surgery Diagnoses Johanne Dover Ltx Hepatology HCC Keon Suero (hepatocellular [address] carcinoma) (HCC) [address] [facility] rocedures [address] [place], [place]BDOMEN [address] [address] [place] [address] Phone: * Radiology Services Status Reason Specialty Diagnoses / Referred By Referred To Procedures Contact Contact Authorized Transplant Surgery Diagnoses Johanne Dover Ltx Hepatology HCC Keon Suero (hepatocellular [address] carcinoma) (HCC) [address] [facility] rocedures [address] [place], [place] ABDOMEN WO/[place] [address] [place] [address] Phone: Reason for Visit * Auth/Cert Status Reason Specialty Diagnoses / Referred By Referred To Procedures Contact Contact Encounter Details Date Type Department Care Team Description 01/07/2017 [facility] Corona Dover MD Encounter [facility] [address] [place] [address] [place] [address] [phone] Social History Tobacco Use Types Packs/Day Years [...] 03/05/2017 Surgery Hawa Hughes MD ESOPHAGOGASTRODUODENOSCOP [address] [facility] Y [address] [place], [place] [id number] 03/05/2017 Procedure Pass 03/05/2017 Hospital Omi Narvaez MD Esophageal varices (HCC) Encounter [address] [facility] [address] [place], [place] [phone] as of this encounter Results * OUTSIDE PATHOLOGY CONSULT (01/10/2017 4:19 PM) Component Value Ref Range PATHOLOGY REPORT [facility] [email or web address] Tiffani Carreno MD, PhD, Director of Anatomic Pathology Department of Pathology and Laboratory Medicine [address] [facility] [place] [address] Surgical Pathology Office: [phone] PATHOLOGY CONSULTATION NAME: XIMENA PARRA SURG PATH #: [id number] MR #: [id number] ALT ID #: LOCATION: [facility] DATE OF PROCEDURE: 01/10/2017 AGE: 71 SEX: M DATE RECEIVED: 01/10/2017 : 1945 TIME RECEIVED: 16:19 PHYSICIAN: OMI NARVAEZ DATE OF REPORT: 01/16/2017 COPY TO: LYNDA CARPENTER DATE OF PRINTIN01/16/2017 ################################################## ###################### Final Diagnosis: A. Outside FNA Cytology Slides, Left Lobe Liver Mass (Date Collected 09/07/2016): Well-differentiated hepatocellular neoplasm, favor hepatocellular carcinoma. Comment: Please also see concurrent surgical pathology consultation report ([id number]). Attestation: By this signature, I attest that [...] and four H&E slides labeled [id number] from [employer] [facility], [address] [place] [address], [facility], [address] [place] [address]. , fax . If immunohistochemical stains and/or in situ hybridization are cited in this report, the performance characteristics were determined by the Department of Pathology and Laboratory Medicine of the [facility] ([employer]) in compliance with CLIA'88 regulations. Some of these tests rely on the use of "analyte specific reagents" and are subject to specific labeling requirements by the FDA. Known positive and negative control tissues demonstrate appropriate staining. This testing was developed by the Department of Pathology and Laboratory Medicine of the [facility]. It has not been cleared or approved [...] 0.4 - 1.24 MG/DL Specimen Performing Laboratory [facility] [address] [place] [address] in this encounter Visit Diagnoses Diagnosis HCC (hepatocellular carcinoma) (HCC) Malignant neoplasm of liver, primary in this encounter Administered Medications Medication Order MAR Action Action Date Dose Rate Site iohexol (OMNIPAQUE-350) 350 mg/mL Given 01/07/2017 100 mL injection 100 mL 12:00 CDT 100 mL, Intravenous, ONCE, 1 dose, Sat01/07/17 at 1200, NOTE: This is a HIGH ALERT Medication. sodium chloride PF 0.9% injection 50 mL Given 01/07/2017 50 mL 50 mL, Intravenous, ONCE, 1 dose, Sat 12:00 CDT 01/07/17 at 1200, Intra-procedure (IR) in this encounter
--- OUTSIDE RECORDS SUMMARY | 2017-02-22 19:24 | XMS REPORT | Encounter Summary ---
Author Author [facility] Organization [facility] Address Unknown Phone Unavailable Care Team Providers Care Fur Repairer Name Role Phone PCP Unavailable Reason for Visit * Reason Comments Pre Operative Visit * Auth/Cert Status Reason Specialty Diagnoses / Referred By Referred To Procedures Contact Contact Encounter Details Date Type Department Care Team Description 01/07/2017 Office Visit Center Brandin Cormier MD Liver mass ( Primary Dx) Transplantation-Hepatobil [address] [facility] iary Pancreas [address] [place] [address] [place] [phone] [place] [address] Social History Tobacco Use Types Packs/Day Years Used Date Former Smoker Cigarettes 1 50 Smokeless Tobacco: Former Quit: User 12/14/2015 Alcohol Use Drinks/Week oz/Week Comments No 0 Standard 0.0 drinks or equivalent Sex Assigned at Date Recorded Not on file as of this encounter Last Filed Vital Signs Vital Sign Reading Time Taken Blood Pressure 146/55 01/07/2017 1:07 PM CDT Pulse 86 01/07/2017 1:07 PM CDT Temperature 36.3 C (97.4 F) 01/07/2017 1:07 PM CDT Respiratory Rate - - Oxygen Saturation 96% 01/07/2017 1:07 PM CDT Inhaled Oxygen - - Concentration Weight 112.5 kg (248 lb) 01/07/2017 1:07 PM CDT Height 182.9 cm (6') 01/07/2017 1:07 PM CDT Body Mass Index 33.63 01/07/2017 1:07 PM CDT in this encounter Functional Status [...] impairment: No 01/07/2017 as of this encounter Instructions * Patient Instructions - Karina Riley RN - 01/07/2017 1:37 PM CDT Harbor Tug Captain: No follow up appointment with Dr. Aquino is needed. 01/07/2017 1:37 PM Today you were seen by Dr. Aquino. Plan: - Imaging reviewed in clinic, final reading is still pending. - Please proceed with the Chest CT ordered by Dr. Narvaez. - Therapies for liver cancer include liver transplant, liver resection, radiofrequency ablation, transarterial chemoembolization (TACE). - Liver resection surgery discussed in detail. Risks and benefits as well as recurrence rates were addressed. - Radiofrequency ablation is a procedure that donnelly the tumor to decrease the size. - A TACE procedure uses chemotherapy agents to decrease the blood supply to the tumor, hopefully causing the tumor to shrink. If you have any questions you can contact our office at . Karina Riley RN in this encounter Progress Notes * Brandin Aquino MD - 01/07/2017 1:26 PM CDT Formatting of this note may be different from the original. Date of Service: 01/07/2017 Jairo Carrillo is a 71 y.o. male. Subjective: History of Present Illness Jairo Carrillo is a 71 year old male with a history of COPD, CAD referred to clinic by Dr. Narvaez for evaluation of HCC. The liver mass was incidentally discovered 2 years ago has been monitored by imaging. It has continued to grow over the past 2 years to 4.5 cm.The patient underwent a biopsy by EUS on which was non-diagnostic. He then underwent a CT guided liver biopsy which demonstrated HCC. The patient has no evidence of cirrhosis based on a fibrous scan finding of 4.2 kPa consistent with F2 fibrosis. The patient denies any symptoms. He denies history of GI bleed or encephalopathy. He denies abdominal pain, nausea, or vomiting. He denies jaundice, joan colored stools, or dark urine. Mr. Carrillo has a history of coronary artery disease s/p 3-vessel CABG in 1996 and cardiac stent placement in 05/2016.He is currently on Plavix and ASA. He also has COPD on is on 2L home O2 NC at night and occasionally during the day if he has increased shortness of breath. He reports a history of COPD exacerbation every 6 months prior to when he quit smoking 1 year ago. Since he quit smoking, he has only had one COPD exacerbation requiring hospitalization. He reports he occasionally takes steroid for his COPD. His last steroid use was approximately 1 month ago. His object oriented developer is Dr. Stevens. Patient reports is he is able to walk 400ft before he gets shortness of breath. He is not able to climb a flight of stairs without getting short of breath. Past Medical History Diagnosis Date COPD (chronic obstructive pulmonary disease) (HCC) 2L home O2 at night and occasionally during the day Obstructive sleep apnea Myocardial infarction (HCC) Hypertension Hyperlipidemia Hepatocellular carcinoma (HCC) Zenker diverticulum Past Surgical History Procedure Laterality Date Coronary stent placement 05/2016 Hx coronary artery bypass graft 1996 3-vessel No family history on file. Social History Social History Marital Status: Spouse Name: N/A Number of Children: N/A Years of Education: N/A Social History Main Topics Smoking status: Former Smoker -- 1.00 packs/day for 50 years Types: Cigarettes Smokeless tobacco: Former User Quit date: 12/14/2015 Alcohol Use: No Drug Use: No Sexual Activity: Yes Other Topics Concern Not on file Social History Narrative Review of Systems Constitutional: Negative for fever, chills, appetite change and fatigue. HENT: Negative for hearing loss, congestion, rhinorrhea and tinnitus. Eyes: Negative for pain, discharge and itching. Respiratory: Negative for cough, chest tightness. Cardiovascular: Negative for chest pain and palpitations. Gastrointestinal: Negative for abdominal distention, pain, nausea, vomiting, and diarrhea. Genitourinary: Negative for frequency, difficulty urinating and pelvic pain. Musculoskeletal: Negative for myalgias, back pain, joint swelling and arthralgias. Skin: Negative for rash. Neurological: Negative for dizziness, weakness, light-headedness and headaches. Hematological: Does not bruise/bleed easily. Psychiatric/Behavioral: Negative for disturbed wake/sleep cycle. The patient is not nervous/anxious. Objective: acetaminophen (TYLENOL) 500 mg tablet Take 500 mg by mouth every 6 hours as needed for Pain. Max of 4,000 mg of acetaminophen in 24 hours. albuterol (VENTOLIN HFA, PROAIR HFA, PROVENTIL HFA) 90 mcg/actuation inhaler Inhale 2 Puffs by mouth into the lungs every 6 hours as needed for Wheezing or Shortness of Breath. Shake well before use. alirocumab (PRALUENT PEN) 75 mg/mL injectable PEN [...] needed for Muscle Cramps. isosorbide mononitrate SR (IMDUR) 30 mg tablet Take 30 mg by mouth every morning. levalbuterol (XOPENEX) 0.63 mg/3 mL nebu Inhale 0.63 mg by mouth into the lungs as Needed. lisinopril (PRINIVIL; ZESTRIL) 10 mg tablet Take 5 mg by mouth daily. metoprolol tartrate (LOPRESSOR) 50 mg tablet Take 50 mg by mouth twice daily. mometasone (NASONEX) 50 mcg/actuation nasal spray Apply 2 Sprays to each nostril as directed daily. montelukast (SINGULAIR) 10 mg tablet Take 10 mg by mouth at bedtime daily. nitroglycerin (NITROSTAT) 0.[address] 0.4 mg under tongue every 5 minutes as needed for Chest Pain. Max of 3 tablets, call 911. Psyllium 3.4 gram/5.8 gram powd Take by mouth. traMADol (ULTRAM) 50 mg tablet Take 50 mg by mouth every 6 hours as needed for Pain. Filed Vitals: 01/07/17 1307 BP: 146/55 Pulse: 86 Temp: 36.3 C (97.4 F) Height: 182.9 cm (72") Weight: 112.492 kg (248 lb) SpO2: 96% Body mass index is 33.63 kg/(m^2). Labs and Diagnostic Test: MELD: MELD Score 01/07/2017 01/07/2017 MELD Score 6 8 Basic Labs: Basic Labs Latest Ref Rng 01/07/2017 AFP 0.0 - 15.0 NG/ML 4.0 NA 137 - 147 MMOL/L 139 K 3.5 - 5.1 MMOL/L 4.2 CL 98 - 110 MMOL/L 104 BUN 7 - 25 MG/DL 17 CR 0.4 - 1.24 MG/DL 1.15 GLUX 70 - 100 MG/DL 96 CA 8.5 - 10.6 MG/DL 9.5 TP 6.0 - 8.0 G/DL 7.4 TBILI 0.3 - 1.2 MG/DL 0.4 ALB 3.5 - 5.0 G/DL 4.2 ALKP 25 - 110 U/L 85 AST 7 - 40 U/L 15 ALT 7 - 56 U/L 15 GFR >60 mL/min >60 GFRAA >60 mL/min >60 GAP 3 - 12 8 HBA1C 4.0 - 6.0 % 5.9 CHOL <200 MG/DL 155 TRIG <150 MG/DL 285(H) HDL >40 MG/DL 41 LDL <100 MG/DL 97 VLDL - 57 NHDL - 114 WBC 4.5 - 11.0 K/UL 9.3 RBC 4.4 - 5.5 M/UL 4.87 HGB 13.5 - 16.5 GM/DL 14.4 MCV 80 - 100 FL 91.1 MCH 26 - 34 PG 29.5 MCHC 32.0 - 36.0 G/DL 32.4 PLT 150 - 400 K/UL 266 MPV 7 - 11 FL 7.9 RDW 11 - 15 % 14.0 NEUT 41 - 77 % 57 ANC 1.8 - 7.0 K/UL 5.30 LYMA 24 - 44 % 30 ALYM 1.0 - 4.8 K/UL 2.80 ЕЛЕНА 4 - 12 % 10 AMONO 0 - 0.80 K/UL 0.90(H) AEOS 0 - 0.45 K/UL 0.20 BASA 0 - 2 % 0 ABAS 0 - 0.20 K/UL 0.00 INR 0.8 - 1.2 1.0 Metabolic Labs: Metabolic Labs Latest Ref Rng 01/07/2017 Alk Phos 25 - 110 U/L 85 HGB A1C 4.0 - 6.0 % 5.9 Autoimmune Labs: No flowsheet data found. Hepatitis Labs: Hepatitis Tests 01/07/2017 HBV Surface Ab 3.7 HBV Surface Ag NEG Imaging: Results for orders placed during the hospital encounter of 01/07/17 (from the past 1650 hours) CT ABDOMEN WO/W CONTRAST Impression 1. Focal enhancing hepatic mass in the [...] Charlie Couch M.D. on 01/07/2017 3:03 PM. Physical Exam Constitutional: He is oriented to person, place, and time. He appears well- developed and well-nourished. No distress. HENT: Head: Normocephalic and atraumatic. Eyes: EOM are normal. No scleral icterus. Neck: Neck supple. No tracheal deviation present. Cardiovascular: Normal rate and regular rhythm. Pulmonary/Chest: Effort normal and breath sounds normal. Abdominal: Soft. He exhibits no distension. There is no tenderness. Obese Musculoskeletal: Normal range of motion. Neurological: He is alert and oriented to person, place, and time. Skin: Skin is warm and dry. Psychiatric: He has a normal mood and affect. Vitals reviewed. CT abdomen INDICATION: 71-year-old gentleman with hepatocellular carcinoma. He has had 2 liver biopsies, the first of which was indeterminate, and the second is reported to have shown hepatocellular carcinoma. TECHNIQUE: Standard liver CT technique was used with precontrast scans through the abdomen, arterial phase, portal venous phase and delayed scans using Isovue-370. There are no previous imaging studies for [...] abdominal aortic aneurysm measuring 3.0 cm diameter. Assessment and Plan: 71 year old male with a history of COPD, CAD with HCC, mass is located in segment 4 and measures 6.0 cm x 4.8 cm -- Extensive discussion with the patient and family regarding treatment options including liver transplant, resection, and TACE or RFA. Patient is not a candidate for liver transplant due to his multiple comorbidities. Additionally, he has an increased risk of morbidity and mortality with liver resection. At this time, the patient would like to proceed with TACE or RFA and decline to proceed with liver resection. -- Recommend CT chest to rule out metastatic disease. Pt will follow with his PCP and chair lift operator. He is coming to my clinic as PRN. Patient seen and discussed with Dr. Aquino, who directed plan. Liudmila Curtis DO in this encounter Plan of Treatment Date Type Specialty Care Team Description 03/05/2017 Surgery Hawa Hughes MD ESOPHAGOGASTRODUODENOSCOP [address] [place] [address] [phone] 03/05/2017 Procedure Pass 03/05/2017 [facility] aIn Narvaez MD Esophageal varices (HCC) Encounter [address] [place], [place] [id number] as of this encounter Visit Diagnoses Diagnosis Liver mass - Primary Unspecified disorder of liver in this encounter
--- OUTSIDE RECORDS SUMMARY | 2017-02-22 19:24 | XMS REPORT | Encounter Summary ---
Author Author [facility] Organization [facility] Address Unknown Phone Unavailable Care Team Providers Care Sustainability Specialist Name Role Phone PCP Unavailable Reason for Referral * Consult, Test & Treat (Urgent) Status Reason Specialty Diagnoses / Referred By Referred To Procedures Contact Contact New Request Specialty Cardiology Diagnoses [facility] Services Hepatocellular MD Required carcinoma (HCC) [address] [place] disease, [address] unspecified COPD Phone: type [phone] * Consult, Test & Treat (Urgent) Status Reason Specialty Diagnoses / Referred By Referred To Procedures Contact Contact New Request Specialty Diagnoses [facility] Hepatocellular MD Required carcinoma (HCC) [address] pulmonary [place], [address] unspecified COPD Phone: type [phone] P Fax: [facility] [phone] PULMONARY FUNCTION TESTING * Test Status Reason Specialty Diagnoses / Referred By Referred To Procedures Contact Contact New Request Diagnoses Ian Narvaez Hepatocellular MD carcinoma (HCC) [address] pulmonary [place], [address] unspecified COPD Phone: type [phone] P Fax: [facility] [phone] DOBUTAMINE STRESS ECHOCARDIOGRAM W/2-D ECHO Reason for Visit * Reason Comments End Stage Liver Disease * Auth/Cert Status Reason Specialty Diagnoses / Referred By Referred To Procedures Contact Contact Encounter Details Date Type Department Care Team Description 01/07/2017 Office Visit Center for Ian Narvaez MD Hepatocellular carcinoma Transplantation-Hepatolog [address] (HCC) (Primary y Clinic [address] Dx);Encounter for [address] [place] [address] observation for other CENTER FOR [phone] suspected diseases and TRANSPLANTATION conditions ruled out [place] ;Chronic obstructive [address] pulmonary disease, unspecified COPD type;Abnormal finding of blood chemistry ;Other specified disorders of carbohydrate metabolism (HCC) Social History Tobacco Use Types Packs/Day Years Used Date Former Smoker Cigarettes 1 50 Smokeless Tobacco: Former Quit: User 12/14/2015 Tobacco Cessation: Counseling Given: No Alcohol Use Drinks/Week oz/Week Comments No 0 Standard 0.0 drinks or equivalent Sex Assigned at Date Recorded Not on file as of this encounter Last Filed Vital Signs Vital Sign Reading Time Taken Blood Pressure 133/49 01/07/2017 8:46 AM CDT Pulse 55 01/07/2017 8:46 AM CDT Temperature 36.4 C (97.6 F) 01/07/2017 8:46 AM CDT Respiratory Rate 16 01/07/2017 8:46 AM CDT Oxygen Saturation 95% 01/07/2017 8:46 AM CDT Inhaled Oxygen - - Concentration Weight 111.1 kg (245 lb) 01/07/2017 8:46 AM CDT Height 182.9 cm (6') 01/07/2017 8:46 AM CDT Body Mass Index 33.23 01/07/2017 8:46 AM CDT in this encounter Functional Status [...] this encounter Instructions * Patient Instructions - Jolie Zamora RN - 01/07/2017 8:48 AM CDT Scheduling: Labs today. Fax referral to Cardiology. Return to clinic in 1 month. (January 30) Things to Remember: The fibroscan done today shows that you do not have cirrhosis. Back Office Task: Please request biopsy slides from [facility] in [place], [place]. (November) Request biopsy slides from Dr. Zavala in [place], [place]. (August) Help patient with scheduling Cardiology visit, Stress Test and Pulmonary Function test (urgent) Patient would like testing all in the same day if possible. They live several hours away. Dr Brice Zamora, [employer] Lois Tidwell APRN [facility] [phone] in this encounter Progress Notes * Ian Narvaez MD - 01/07/2017 9:23 AM CDT Formatting of this note may be different from the original. Date of Service: 01/07/2017 Subjective: Jairo Carrillo is a 71 y.o. male. History of Present Illness 71-year-old's gentleman so with a history of incidentally discovered liver lesions in the left lobe of the liver and has been monitored by imaging. The imaging shows that it continued to grow of the liver lesions over 2 years to 4.5 cm. Patient underwent biopsy by EUS on the first time that was nondiagnostic and second time by CT scan guided that showed HCC. Patient has history of coronary artery disease and has a CABG over 10 years ago. Patient also has stent last year. Patient's has limited functional capacity able to walk up one flight of stairs with difficulty. He does have an exercise program riding a bike for half mile and walking for 25 minutes twice a week. He also has COPD and quit smoking 1 year ago. He has recently been admitted for COPD exacerbation. He has not had a liver biopsy proven Mann cirrhosis. He did have liver biopsy proven Mann on his EUS biopsy. He did not have a history of diabetes. He does have hypertension hyperlipidemia. He is a non-drinker for the last 25 years. 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 Review of Systems Objective: acetaminophen (TYLENOL) 500 mg tablet Take [...] as needed for Pain. Filed Vitals: 01/07/17 0846 BP: 133/49 Pulse: 55 Temp: 36.4 C (97.6 F) TempSrc: Oral Resp: 16 Height: 182.9 cm (72") Weight: 111.131 kg (245 lb) SpO2: 95% Body mass index is 33.22 kg/(m^2). Physical Exam Fibrous scan show a liver stiffness of 7.4 kPa and a CAP score of 400 consistent with severe steatosis Assessment and Plan: This is a 71-year-old gentleman with liver biopsy proven steatohepatitis but no cirrhosis here for a biopsy-proven HCC 4.5 cm in the left lobe of the liver. Patient has evidence of no cirrhosis based on a fibrous scan finding of 4.2 kPa consistent with F2 fibrosis. The fibrous scans may have forced positive but has very low risk of false negative and therefore we are quite confident that he does not have evidence of cirrhosis at this time. Therefore he may proceed with a liver resections from a liver standpoint. We do need to clear him for surgery from a cardiac standpoint. He has history of CABG and he has history of a stent just last year. He does have poor functional status able to walk up one flight of stairs with difficulty. He does have an exercise program but he can only ride a bike for half mile and he can only walk for 25 minutes. He needs to have cardiology consult with stress test the resting at a minimum.. He also needs to have clearance from a pulmonary standpoint. He has previous history of smoking but quit one year ago. He has been admitted for COPD. Need a pulmonary function test. He still needs management of his Mann. He does not have cirrhosis at this time. I will check to see if he has active evidence of diabetes. If so we will treat him with Victoza. If not we will treat him with combination of metformin and Actos due to cost concern. I have also considered vitamin E especially it works relatively well in patients with a BMI of less than 40 and his risk for variceal bleeding is relatively low , but it will not be appropriate due to his cardiovascular risk. in this encounter Plan of Treatment Date Type Specialty Care Team Description 03/05/2017 Surgery Hawa Hughes MD ESOPHAGOGASTRODUODENOSCOP [address] [place] [address] [phone] 03/05/2017 Procedure Pass 03/05/2017 Hospital Ian Narvaez MD Esophageal varices (HCC) Encounter [address] [place] [address] [phone] Name Priority Associated Diagnoses Order Schedule DOBUTAMINE STRESS ECHOCARDIOGRAM W/2-D Routine Hepatocellular carcinoma Expected: 01/07/2017, ECHO (HCC) Expires: 01/07/2018 Chronic obstructive pulmonary disease, unspecified COPD type (HCC) PULMONARY FUNCTION TESTING Routine Hepatocellular carcinoma Ordered: (HCC) Chronic obstructive pulmonary disease, unspecified COPD type (HCC) Name Priority Associated Diagnoses Order Schedule AMB REFERRAL TO CARDIOLOGY Routine Hepatocellular carcinoma Ordered: (HCC) Chronic obstructive pulmonary disease, unspecified COPD type (HCC) as of this encounter Results * HEMOGLOBIN A1C (01/07/2017 9:39 AM) Component Value Ref Range Hemoglobin A1C 5.9 4.0 - 6.0 % Comment: The ADA recommends that most patients with type 1 and type 2 diabetes maintain an A1c level <7%. Specimen Performing Laboratory Blood MAIN LAB [address] [place] [id number] * LIPID PROFILE (01/07/2017 9:39 AM) Component [...] Huddleston et al. Am J. Cardiol. 2008, [phone]. The "goal" should be less than 130 mg/dL, but will vary according to risk factors. Specimen Performing Laboratory Blood MAIN LAB [address] [place] [address] * HEPATITIS C AB (01/07/2017 9:39 AM) Component Value Ref Range Anti HCV NEG Specimen Performing Laboratory Blood MAIN LAB [address] [place] [address] * HEPATITIS B SURFACE AG (01/07/2017 9:39 AM) Component Value Ref Range HBsAg NEG Specimen Performing Laboratory Blood MAIN LAB [address] [place] [address] * HEPATITIS B SURFACE AB (01/07/2017 9:39 AM) Component Value Ref Range Anti HBs 3.7 mIU/ml Comment: Hepatitis B Surface Antibody Reference Ranges >12.0 Positive 8.0-12.0 Equivocal <8.0 Negative Specimen Performing Laboratory Blood MAIN LAB [address] [place] [address] * HEPATITIS A IGG (01/07/2017 9:39 AM) Component Value Ref Range Hepatitis A IGG POS Note: Test type and methodology has changed. The [facility] lab has discontinued the test for Total Hep A Immunoglobulin. This test has been replaced with more specific testing. The tests for Hep A IgG and Hep A IgM are both now available and can be ordered. Specimen Performing Laboratory Blood MAIN LAB [address] [place] [address] * ALPHA FETO PROTEIN (AFP) (01/07/2017 9:39 AM) Component Value Ref Range Alpha Feto Protein 4.0 0.0 - 15.0 NG/ML Specimen Performing Laboratory Blood MAIN LAB [address] [place] [address] * PROTIME INR (PT) (01/07/2017 9:39 AM) Component Value Ref Range INR 1.0 0.8 - 1.2 Specimen Performing Laboratory Blood MAIN LAB [address] [place] [address] * COMPREHENSIVE METABOLIC PANEL (01/07/2017 9:39 AM) [...] Performing Laboratory Blood [facility] MAIN LAB [address] [place] [address] * CBC AND DIFF (01/07/2017 9:39 AM) [...] Specimen Performing Laboratory Blood MAIN LAB [address] [place] [address] in this encounter Visit Diagnoses Diagnosis Hepatocellular carcinoma (HCC) - Primary Malignant neoplasm of liver, primary Encounter for observation for other suspected diseases and conditions ruled out Chronic obstructive pulmonary disease, unspecified COPD type Abnormal finding of blood chemistry Other abnormal blood chemistry Other specified disorders of carbohydrate metabolism (HCC) in this encounter
--- OUTSIDE RECORDS SUMMARY | 2017-02-22 19:24 | XMS REPORT | Encounter Summary ---
Author Author [facility] Organization [facility] Address Unknown Phone Unavailable Care Team Providers Care Serials Librarian Name Role Phone PCP Unavailable Reason for Referral * Radiology Services Status Reason Specialty Diagnoses / Referred By Referred To Procedures Contact Contact Authorized Transplant Surgery Diagnoses [facility] Hep[facility] HCC Keon Suero (hepatocellular MD [address] carcinoma) (HCC) [address] [facility] [address] [address] rocedures [address] [place], [place]OM[place] [address] CONTRAST [address] Phone: Reason for Visit * Reason Comments Referral Encounter Details Date Type Department Care Team Description 12/20/2016 Telephone Center for Houston Howe RN Referral Transplantation-Liver Transplant Hep [address] [facility] [place] [address] Social History Tobacco Use Types Packs/Day Years Used Date Never Assessed Sex Assigned at Date Recorded Not on file as of this encounter Plan of Treatment Date Type Specialty Care Team Description 03/05/2017 Surgery Hawa Hughes MD ESOPHAGOGASTRODUODENOSCOP [address] [place] [address] [phone] 03/05/2017 Procedure Pass 03/05/2017 [facility] Ian Narvaez MD Esophageal varices (HCC) Encounter [address] [place] [address] as of this encounter Results * CT ABDOMEN WO/W CONTRAST (01/07/2017 11:44 [...] Charlie Couch M.D. on 01/07/2017 3:03 PM. in this encounter Visit Diagnoses Diagnosis HCC (hepatocellular carcinoma) (HCC) - Primary Malignant neoplasm of liver, primary in this encounter
--- NOTE | 2017-02-22 19:37 | ED GU-Male ---
General Stated Complaint: ABDOMINAL PAIN,CONSTIPATION Source: patient, spouse Exam Limitations: no limitations History of Present Illness Time seen by provider: 19:29 Initial Comments Patient presents to ER by private conveyance with a chief complaint of inability to urinate for the past 2 days. He is receiving radiation and had chemotherapy beads implanted last treatment was January 30 to the liver. Just prior to being brought back to the room however he was able to urinate. He denies any dysuria or discharge. Denies fevers or chills or rash or nausea or abdominal pain. He states he has been using oxycodone for the pain from the radiation donnelly on his abdomen as well as he takes a daily Zyrtec and often a Benadryl at night. Approximately 2 days ago he stopped taking the oxycodone Zyrtec and Benadryl and he attributes this to the reason he could not urinate. He has no history of BPH or hesitancy but he does have a history of nocturnal frequency. Patient also concerned that he is had worsening constipation as for the past 4 days been living out of a hotel and has not been very regular taking his psyllium fiber supplements. He contributes this also to his opiates but does not have any other laxative and is asking for a suggestion. Last bowel movement was approximately 2-3 days ago. Patient's been having a lot more heartburn for the past couple weeks since he restarted his naproxen twice daily. He is using Tums and was using omeprazole but was told stop using omeprazole because of interactions with his other medications. He feels the Tums are inadequate. Allergies and Home Medications Allergies Coded Allergies: hydrocodone (Unverified Adverse Reaction, Unknown, NIGHTMARES, 12/17/15) Home Medications Alirocumab 75 Mg/1 Ml Pen.injctr, 75 MG SQ BI WEEKLY, (Reported) Alprazolam 0.25 Mg Tablet, 0.25 MG PO TID PRN for ANXIETY, (Reported) Aspirin 81 Mg Tab.chew, 81 MG PO DAILY, (Reported) Budesonide/Formoterol Fumarate 10.2 Gm Hfa.aer.ad, 2 PUFF IH BID, (Reported) Cetirizine HCl 10 Mg Tablet, 10 MG PO DAILY, (Reported) Clopidogrel Bisulfate 75 Mg Tablet, 75 MG PO DAILY, (Reported) Cyclobenzaprine HCl 10 Mg Tablet, 10 MG PO TID PRN for MUSCLE SPASMS, (Reported) Furosemide 20 Mg Tablet, 20 MG PO DAILY PRN for EDEMA, (Reported) Isosorbide Mononitrate 30 Mg Tab.er.24h, 30 MG PO DAILY, (Reported) Levalbuterol HCl 0.63 Mg/3 Ml Vial.neb, 0.63 MG IH TID PRN for SHORTNESS OF BREATH, (Reported) Lisinopril 5 Mg Tablet, 2.5 MG PO DAILY, (Reported) TAKES 1/2 OF A (5 MG) TABLET Metoprolol Tartrate 100 Mg Tablet, 50 MG PO BID, (Reported) TAKES 1/2 (100MG) TABLET Mometasone Furoate 17 Gm Naspr, 50 MCG NS HS, (Reported) Montelukast Sodium 10 Mg Tablet, 10 MG PO HS, (Reported) Naproxen 500 Mg Tablet, 500 MG PO BID, (Reported) Nitroglycerin 0.4 Mg Tab.subl, 0.4 MG SL UD PRN for CHEST PAIN, (Reported) 1 TAB SUBLINGUALLY EVERY 5 MINUTES/ NOT TO EXCEED 3 DOSES IN 15 MINUTES Omeprazole 20 Mg Tablet.dr, 40 MG PO BID, (Reported) TAKES 2 (20 MG) CAPSULES Polyethylene Glycol 3350 17 Gm Powd.pack, 17 GM PO BID PRN PRN for CONSTIPATION- 1ST LINE for 7 Days, #1 Ref 0 Prescribed by: DES MACIAS on 02/22/172020 Roflumilast 500 Mcg Tablet, 500 MCG PO DAILY, (Reported) Tamsulosin HCl 0.4 Mg Cap, 0.4 MG PO HS for 30 Days, #30 Ref 0 Prescribed by: DES MACIAS on 02/22/172020 Tramadol Hcl 50 Mg Tablet, 50 MG PO TID PRN for PAIN, (Reported) NEEDED FOR PAIN Constitutional: No chills, No diaphoresis, No fever, No malaise Respiratory: No cough, No short of breath Cardiovascular: No chest pain, No palpitations Gastrointestinal: No abdominal pain, constipation, No diarrhea, No nausea Genitourinary: denies discharge, denies dysuria Musculoskeletal: No back pain, No joint pain Skin: No pruritus, No rash Psychiatric/Neurological: Denies Headache, Denies Numbness Past Buxtubb-Rakwjh-Obqjjk Hx Patient Social History Recent Foreign Travel: No Contact w/Someone Who Travel: No Recent Hopitalizations: No Immunizations Up To Date Tetanus Booster (TDap): Less than 5yrs PED Vaccines UTD: No Date of Pneumonia Vaccine: Apr 14, 2014 Date of Influenza Vaccine: Mar 20, 2016 Seasonal Allergies Seasonal Allergies: No Surgeries HX Surgeries: Yes Surgeries: Abdominal, Cardiac, CABG, Coronary Stent, Orthopedic Respiratory Hx Respiratory Disorders: Yes Respiratory Disorders: Asthma, Sleep Apnea, COPD Cardiovascular Hx Cardiac Disorders: Yes (MT 1996--3 VESSEL CABG; STENTS X 2) Cardiac Disorders: Coronary Artery Disease, Heart Attack, High Cholesterol, Hypertension Neurological Hx Neurological Disorders: No Reproductive System Hx Reproductive Disorders: No Sexually Transmitted Disease: No HIV/AIDS: No Genitourinary Hx Genitourinary Disorders: No Gastrointestinal Hx Gastrointestinal Disorders: Yes (ZENKER'S DIVERTICULUM REMOVED 11/2015) Gastrointestinal Disorders: Gastroesophageal Reflux, Diverticulosis Musculoskeletal Hx Musculoskeletal Disorders: Yes (RIGHT ANKLE FX/ORIF) Musculoskeletal Disorders: Arthritis, Chronic Back Pain Endocrine Hx Endocrine Disorders: No HEENT HX ENT Disorders: No HEENT Disorders: Cataract Loss of Vision: Denies Hearing Impairment: Hard of Hearing Cancer Hx Cancer: No Cancer: Skin Psychosocial Hx Psychiatric Problems: No Integumentary HX Skin/Integumentary Disorder: No Blood Transfusions Hx Blood Disorders: No Adverse Reaction to a Blood Tr: No Family Medical History Family Medial History: Diabetes mellitus 19 MOTHER FH: heart disease 19 FATHER 19 MOTHER G8 SISTER FH: inflammatory bowel disease G8 SISTER Physical Exam Vital Signs Vital Sign - Last 12Hours 02/22/17 19:21 Temp 98.2 Pulse 123 Resp 24 B/P (MAP) 134/81 Pulse Ox 94 O2 Delivery Nasal Cannula O2 Flow Rate 2.00 Capillary Refill : General Appearance: WD/WN, no apparent distress HEENT: PERRL/EOMI, pharynx normal Neck: non-tender, normal inspection Cardiovascular: normal peripheral pulses, regular rate, rhythm Respiratory: lungs clear, normal breath sounds Gastrointestinal: normal bowel sounds, non tender, soft Back: normal inspection, no CVA tenderness Extremities: no pedal edema, normal capillary refill Neurologic/Psychiatric: alert, oriented x 3 Skin: normal color, warm/dry Focused Exam Lactic Acid Level Laboratory Tests Test 02/22/17 19:39 Lactic Acid Level 1.72 MMOL/L (0.50-2.00) Progress/Results/Core Measures Results/Orders Lab Results Laboratory Tests Test 02/22/17 19:39 02/22/17 19:56 Range/Units White Blood Count 9.7 4.3-11.0 10^3/uL Red Blood Count 4.94 4.35-5.85 10^6/uL Hemoglobin 14.5 13.3-17.7 G/DL Hematocrit 45 40-54 % Mean Corpuscular Volume 91 80-99 FL Mean Corpuscular Hemoglobin 29 25-34 PG Mean Corpuscular Hemoglobin Concent 32 32-36 G/DL Red Cell Distribution Width 14.4 10.0-14.5 % Platelet Count 313 130-400 10^3/uL Mean Platelet Volume 9.1 7.4-10.4 FL Neutrophils (%) (Auto) 62 42-75 % Lymphocytes (%) (Auto) 24 12-44 % Monocytes (%) (Auto) 13 H 0-12 % Eosinophils (%) (Auto) 1 0-10 % Basophils (%) (Auto) 0 0-10 % Neutrophils # (Auto) 6.0 1.8-7.8 X 10^3 Lymphocytes # (Auto) 2.3 1.0-4.0 X 10^3 Monocytes # (Auto) 1.3 H 0.0-1.0 X 10^3 Eosinophils # (Auto) 0.1 0.0-0.3 10^3/uL Basophils # (Auto) 0.0 0.0-0.1 10^3/uL Sodium Level 139 135-145 MMOL/L Potassium Level 3.9 3.6-5.0 MMOL/L Chloride Level 106 98-107 MMOL/L Carbon Dioxide Level 21 21-32 MMOL/L Anion Gap 12 5-14 MMOL/L Blood Urea Nitrogen 19 H 7-18 MG/DL Creatinine 0.97 0.60-1.30 MG/DL Estimat Glomerular Filtration Rate > 60 BUN/Creatinine Ratio 20 Glucose Level 116 H 70-105 MG/DL Lactic Acid Level 1.72 0.50-2.00 MMOL/L Calcium Level 9.6 8.5-10.1 MG/DL Total Bilirubin 0.5 0.1-1.0 MG/DL Aspartate Amino Transf (AST/SGOT) 17 5-34 U/L Alanine Aminotransferase (ALT/SGPT) 26 0-55 U/L Alkaline Phosphatase 89 40-136 U/L Total Protein 7.1 6.4-8.2 GM/DL Albumin 4.0 3.2-4.5 GM/DL Urine Color YELLOW Urine Clarity CLEAR Urine pH 6 5-9 Urine Specific [place] 1.025 H 1.016-1.022 Urine Protein NEGATIVE NEGATIVE Urine Glucose (UA) NEGATIVE NEGATIVE Urine Ketones NEGATIVE NEGATIVE Urine Nitrite NEGATIVE NEGATIVE Urine Bilirubin NEGATIVE NEGATIVE Urine Urobilinogen NORMAL NORMAL MG/DL Urine Leukocyte Esterase NEGATIVE NEGATIVE Urine RBC (Auto) NEGATIVE NEGATIVE Urine RBC NONE /HPF Urine WBC RARE /HPF Urine Crystals NONE /LPF Urine Bacteria NEGATIVE /HPF Urine Casts NONE /LPF Urine Mucus SMALL H /LPF Urine Culture Indicated NO My Orders Orders - DES MACIAS Cbc With Automated Diff (02/22/17 19:37) Comprehensive Metabolic Panel (02/22/17 19:37) Lactic Acid Analyzer (02/22/17 19:37) Ua Culture If Indicated (02/22/17 19:37) Vital Signs/I&O Vital Sign - Last 12Hours 02/22/17 19:21 Temp 98.2 Pulse 123 Resp 24 B/P (MAP) 134/81 Pulse Ox 94 O2 Delivery Nasal Cannula O2 Flow Rate 2.00 Progress Note : Time: 19:44 Progress Note Patient was able to urinate now almost 2 days after he discontinued the use of his anticholinergics and opiates. He says he is okay with not using the opiates anymore as his pain is much better and feels he may have used them a little bit longer than he should have. He does have Flonase home which she could use as an alternative to the Zyrtec. Cautioned him against using Benadryl and Zyrtec together. We can provide him with Flomax outpatient until he follows up with his PCP as well as he could be provided with MiraLAX for his constipation or he gets back on his psyllium fiber. What concerns me is his tachycardia has been persistent even throughout her visit. He is afebrile but eating on chemotherapy adequate should do a little more workup and obtain a urine specimen as well as a lactate. Departure Impression Impression: Primary Impression: Urinary hesitancy Additional Impression: Constipation due to opioid therapy Disposition: 01 HOME, SELF-CARE Condition: Improved Departure-Patient Inst. Referrals: CAILIN WALKER MD (PCP/Family) Primary Care Physician Patient Instructions: Constipation, Adult (DC) Add. 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 You can increase that up to 4 times a day as needed to get your constipation resolved. Continue taking the psyllium fiber. Mix 1 capful of MiraLAX in your favorite drink. Plan on following up the next one-two weeks with Dr. Walker about your urinary hesitancy. We will send a prescription to the pharmacy for a medicine called Flomax that may help your urinary hesitancy if it is caused by enlarged prostate. However if your symptoms are resolved by just not taking the opiates and antihistamines like Benadryl, Zyrtec, Claritin, Sarah then I would suggest avoiding those medicine combinations for now and following up with your primary care physician to discuss whether you need to take Flomax or not. Discontinue the Naprosyn and any other NSAIDs such as ibuprofen, Motrin, Aleve, Mobic etc. It is okay to take Tylenol 1000 mg every 8 hours by mouth for pain. It is okay to continue your baby aspirin if your Doctor has prescribed this. He may use Zantac [id number] for a few days to get your heartburn under control but realizes this too may contribute to your urinary hesitancy. Scripts Tamsulosin HCl (Flomax) 0.4 Mg Cap 0.4 MG PO HS for 30 Days, #30 CAP 0 Refills Prov: DES MACIAS 02/22/17 Polyethylene Glycol 3350 (Miralax) 17 Gm Powd.pack 17 GM PO BID PRN Y for CONSTIPATION-1ST LINE for 7 Days, #1 EACH 0 Refills Prov: DES MACIAS 02/22/17 Copy Copies To 1: CAILIN WALKER MD, TITUS J Feb 22, 2017 19:37
[2017-02-22 19:51] LABS: BASOPHILS % (AUTO) 0 % (0-10); EOSINOPHILS # (AUTO) 0.1 10^3/uL (0.0-0.3); EOSINOPHILS % (AUTO) 1 % (0-10); LYMPHOCYTES # (AUTO) 2.3 X 10^3 (1.0-4.0); LYMPHOCYTES % (AUTO) 24 % (12-44); MEAN CORPUSCULAR HEMOGLOBIN 29 PG (25-34); MEAN CORPUSCULAR HGB CONC 32 G/DL (32-36); MEAN CORPUSCULAR VOLUME 91 FL (80-99); MEAN PLATELET VOLUME 9.1 FL (7.4-10.4); MONOCYTES # (AUTO) 1.3 X 10^3 (0.0-1.0); MONOCYTES % (AUTO) 13 % (0-12); NEUTROPHILS % (AUTO) 62 % (42-75); PLATELET COUNT 313 10^3/uL (130-400); RED BLOOD COUNT 4.94 10^6/uL (4.35-5.85); RED CELL DISTRIBUTION WIDTH 14.4 % (10.0-14.5); WHITE BLOOD COUNT 9.7 10^3/uL (4.3-11.0)
[2017-02-22 20:03] LABS: BILIRUBIN,URINE NEGATIVE (NEGATIVE); KETONES,URINE NEGATIVE (NEGATIVE); LEUKOCYTE ESTERASE ,URINE NEGATIVE (NEGATIVE); NITRITE,URINE NEGATIVE (NEGATIVE); PH,URINE 6 (5-9); PROTEIN,URINE NEGATIVE (NEGATIVE); UROBILINOGEN,URINE NORMAL (NORMAL)
[2017-02-22 20:12] LABS: WBC,URINE RARE /HPF
[2017-02-22 20:18] LABS: ALANINE AMINOTRANSFERASE 26 U/L (0-55); ANION GAP 12 MMOL/L (5-14); ASPARTATE AMINO TRANSFERASE 17 U/L (5-34); BILIRUBIN,TOTAL 0.5 MG/DL (0.1-1.0); BLOOD UREA NITROGEN 19 MG/DL (7-18); BUN/CREATININE RATIO 20; CALCIUM 9.6 MG/DL (8.5-10.1); CARBON DIOXIDE 21 MMOL/L (21-32); CHLORIDE 106 MMOL/L (98-107); CREATININE SERUM 0.97 MG/DL (0.60-1.30); GFR ESTIMATED > 60; GLUCOSE 116 MG/DL (70-105); POTASSIUM 3.9 MMOL/L (3.6-5.0); SODIUM 139 MMOL/L (135-145); TOTAL PROTEIN 7.1 GM/DL (6.4-8.2)
[2017-02-22] MEDS ORDERED: POLY17PO6 PO (20:21)
[2017-02-22] MEDS ORDERED: TAMS0.4C98 PO (20:21)
[2017-02-22 20:37] VITALS: BP 134/81
== END 2017-02-22 20:36 | disposition home or self-care (01) ==
LOC: EDUNIT# 19:11 → ER 19:13
DX: K59.03 Drug induced constipation (principal); T40.2X5A Adverse effect of other opioids, initial encounter; R39.11 Hesitancy of micturition; J45.909 Unspecified asthma, uncomplicated; G47.30 Sleep apnea, unspecified; J44.9 Chronic obstructive pulmonary disease, unspecified; I25.2 Old myocardial infarction; I25.10 Atherosclerotic heart disease of native coronary artery without angina pectoris; E78.00 Pure hypercholesterolemia, unspecified; I10 Essential (primary) hypertension; K21.9 Gastro-esophageal reflux disease without esophagitis; M19.90 Unspecified osteoarthritis, unspecified site; Z87.19 Personal history of other diseases of the digestive system; Z79.82 Long term (current) use of aspirin; Z95.1 Presence of aortocoronary bypass graft; Z95.5 Presence of coronary angioplasty implant and graft; Z82.49 Family history of ischemic heart disease and other diseases of the circulatory system
CPT/HCPCS: 36415; 80053; 81000; 83605; 85025